=== PATIENT | male | born 1955 | race Caucasian/White ===

== ENCOUNTER 2016-10-28 01:33 | Emergency (ER) | payer MEDICARE, MEDICAID ==
--- NOTE | 2016-10-28 02:12 | ER Document Report ---
Addendum entered and electronically signed by NICOLA ZARCO NP 07:54: Doctor's Note Notes: 10/28/16 07:52 Patient received from Nuno MARTINEZ. Patient resting quietly at this time sitting up in the end of his bed states he would much rather be in a chair. O2 is stretched. Awaiting for a bed at [facility]. We'll order a diet for him to continue to monitor. He will have serial CBCs due to his lower GI bleed. Original Note: ED General - General Time seen by provider: 02:10 TRAVEL OUTSIDE OF THE [place] IN LAST 30 DAYS: No <NUNO SAUL - Last Filed: 10/28/16 07:19> <NICOLA ZARCO - Last Filed: 10/28/16 07:52> <PHIL MILES - Last Filed: 10/28/16 13:00> - General Chief Complaint: Shortness Of Breath Stated Complaint: DIFFICULTY BREATHING Notes: Patient is a 61-year-old male that comes by EMS for chief complaint of shortness of breath. Patient states that earlier he felt short of breath although this is now resolved, he denies current symptoms, he states that he still feels short of breath when he lies flat but this is his baseline. Patient has a conjugate medical history including ESRD on dialysis, CAD and CABG , pacemaker, DMII. He is due for dialysis today. Patient reports he just got out of rehabilitation where he was placed because of a diabetic foot wound which he could not walk from. (NUNO SAUL) - Related Data Allergies/Adverse Reactions: No Known Allergies Allergy (Verified 07/22/15 15:27) Past Medical History - General Information source: Patient - Social History Smoking Status: Former Smoker Chew tobacco use (# tins/day): No Frequency of alcohol use: None Drug Abuse: None Lives with: Alone Family History: CAD, DM Patient has suicidal ideation: No Patient has homicidal ideation: No - Past Medical History Cardiac Medical History: Reports: Hx Congestive Heart Failure, Hx Hypertension Endocrine Medical History: Reports: Hx Diabetes Mellitus Type 2 Renal/ Medical History: Denies: Hx Peritoneal Dialysis Musculoskeltal Medical History: Reports Hx Arthritis, Reports Hx Musculoskeletal Deformity, Reports Hx Musculoskeletal Trauma Psychiatric Medical History: Reports: Hx Depression Past Surgical History: Reports: Hx Appendectomy, Hx Orthopedic Surgery - right knee replacement, Hx Rectal Surgery - abscess years agoComment Only: Hx Abdominal Surgery - current hernia - Immunizations Immunizations up to date: Yes Hx Diphtheria, Pertussis, Tetanus Vaccination: Yes Hx Pneumococcal Vaccination: 05/23/13 <NUNO SAUL - Last Filed: 10/28/16 07:19> Review of Systems - Review of Systems Constitutional: No symptoms reported EENT: No symptoms reported Cardiovascular: See HPI Respiratory: See HPI Gastrointestinal: No symptoms reported Genitourinary: No symptoms reported Male Genitourinary: No symptoms reported Musculoskeletal: No symptoms reported Skin: No symptoms reported Hematologic/Lymphatic: No symptoms reported Neurological/Psychological: No symptoms reported <NUNO SAUL Last Filed: 10/28/16 07:19> Physical Exam - Vital signs Interpretation: Normal - General General appearance: Appears well, Alert In distress: None - HEENT Head: Normocephalic, Atraumatic Eyes: Normal Pupils: PERRL - Respiratory Respiratory status: No respiratory distress Chest status: Nontender Breath sounds: Decreased air movement - Bilateral. No: Productive cough, Rales , Rhonchi, Stridor, Wheezing Chest palpation: Normal - Cardiovascular Rhythm: Regular. No: Tachycardia Heart sounds: Normal auscultation, S1 appreciated, S2 appreciated - Abdominal Distension: No distension Bowel sounds: Normal Tenderness: Nontender. No: Tender - Rectal Stool: Heme positive, See lab result. No: Black Hemorrhoids: None - Back Back: Normal, Nontender - Extremities General upper extremity: Normal inspection, Nontender, Normal color, Normal ROM , Normal temperature General lower extremity: Other - Chronic venous stasis discoloration with skin breakdown over the feet bilaterally, there is a pressure ulcer with dressing over the left lateral foot - Neurological Neuro grossly intact: Yes Cognition: Normal Orientation: AAOx4 [place] Coma Scale Eye Opening: Spontaneous [place] Coma Scale Verbal: Oriented [place] Coma Scale Motor: Obeys Commands [place] Coma Scale Total: 15 Speech: Normal Motor strength normal: LUE, RUE, LLE, RLE Sensory: Normal - Psychological Associated symptoms: Normal affect, Normal mood - Skin Skin Temperature: Warm Skin Moisture: Dry Skin Color: Normal <NUNO SAUL Last Filed: 10/28/16 07:19> Course - Laboratory Result Diagrams: 10/28/16 02:25 10/28/16 02:25 <NUNO SAUL - Last Filed: 10/28/16 07:19> <NICOLA ZARCO - Last Filed: 10/28/16 07:52> - Laboratory Result Diagrams: 10/28/16 08:58 10/28/16 02:25 <PHIL MILES - Last Filed: 10/28/16 13:00> - Re-evaluation Re-evalutation: EKG showing paced ventricular rhythm, cardiac enzymes not elevated, chemistry generally unremarkable. CBC shows anemia with hemoglobin of 7.9, previous hemoglobin last March 20 plus. Abdomen is soft, patient is unsure of abnormal stools. Physical examination shows questionable exam for lower GI bleed, positive Hemoccult, no hemorrhoids, no significant bleeding noted, no black stools noted. Called ordering machine operator, we do not have gastroenterology coverage for 4 more days. Patient also is due for dialysis today. Fortunately potassium is not elevated. Discussed with Dr. Michele. Recommends transfer to tertiary care center for additional management. Pending transfusion. Called and spoke with [facility] Dr. Booth, patient will be accepted for transfer. She recommends patient not get transfusion based on his recent labs at [facility]. Patient is in agreement with this transfer plan. Patient introduced to Roger CROSSP at bedside. (NUNO SAUL) 10/28/16 13:00 Patient reevaluated and is stable at this time, awaiting transport (PHIL MILES) - Vital Signs Vital signs: Temp Pulse Resp BP Pulse Ox 97.5 F 79 22 H 111/96 H 100 10/28/16 01:58 10/28/16 01:58 10/28/16 01:58 10/28/16 12:01 10/28/16 12:01 - Laboratory Laboratory results interpreted by me: 10/28/16 10/28/16 10/28/16 02:25 02:25 02:25 RBC 2.94 L Hgb 7.9 L Hct 24.5 L MCH RDW 18.5 H Plt Count 139 L Lymphocytes % 12.6 L Sodium 145.3 H BUN 71 H Creatinine 6.98 H Est GFR ( Amer) 10 L Est GFR (Non-Af Amer) 8 L Direct Bilirubin 0.8 H CK-MB (CK-2) 5.03 H Crossmatch 10/28/16 10/28/16 05:40 08:58 RBC 2.93 L Hgb 7.8 L Hct 24.4 L MCH 26.7 L RDW 19.3 H Plt Count 125 L Lymphocytes % Sodium BUN Creatinine Est GFR ( Amer) Est GFR (Non-Af Amer) Direct Bilirubin CK-MB (CK-2) Crossmatch See Detail Discharge <NUNO SAUL - Last Filed: 10/28/16 07:19> <NICOLA ZARCO - Last Filed: 10/28/16 07:52> <PHIL MILES - Last Filed: 10/28/16 13:00> - Discharge Clinical Impression: Lower GI bleed, Shortness of breath Condition: Stable Disposition: [facility] [place]
[2016-10-28 02:42] LABS: ABSOLUTE BASOPHILS # (AUTO) 0.1 10^3/uL (0.0-0.2); ABSOLUTE EOSINOPHILS # (AUTO) 0.2 10^3/uL (0.0-0.6); ABSOLUTE LYMPHOCYTES (AUTO) 0.8 10^3/uL (0.5-4.7); ABSOLUTE MONOCYTES (AUTO) 0.6 10^3/uL (0.1-1.4); ABSOLUTE NEUT (AUTO) 4.8 10^3/uL (1.7-8.2); EOSINOPHILS % (AUTO) 3.8 % (0-6); HEMATOCRIT 24.5 % (37.9-51.0); HGB HCT DIFFERENCE -0.8; LYMPHOCYTES % (AUTO) 12.6 % (13-45); MEAN CORPUSCULAR HEMOGLOBIN 27.1 pg (27.0-33.4); MEAN CORPUSCULAR HGB CONC 32.4 g/dL (32.0-36.0); MEAN CORPUSCULAR VOLUME 84 fl (80-97); MONOCYTES % (AUTO) 9.4 % (3-13); RED BLOOD COUNT 2.94 10^6/uL (4.35-5.55); RED CELL DISTRIBUTION WIDTH 18.5 % (11.5-14.0); SEGMENTED NEUTROPHILS % (AUTO) 73.2 % (42-78); WHITE BLOOD COUNT 6.5 10^3/uL (4.0-10.5)
[2016-10-28 02:45] LABS: HEMOGLOBIN 7.9 g/dL (13.5-17.0)
[2016-10-28 02:57] LABS: ALANINE AMINOTRANSFERASE 27 U/L (21-72); ALBUMIN 3.6 g/dL (3.5-5.0); ALKALINE PHOSPHATASE 124 U/L (38-126); ASPARTATE AMINO TRANSFERASE 27 U/L (17-59); BILIRUBIN,DIRECT 0.8 mg/dL (0.0-0.4); BILIRUBIN,TOTAL 0.8 mg/dL (0.2-1.3); BLOOD UREA NITROGEN 71 mg/dL (7-20); CALCIUM 8.6 mg/dL (8.4-10.2); CARBON DIOXIDE 23 mmol/L (22-30); CHLORIDE 103 mmol/L (98-107); CREATINE KINASE 77 U/L (55-170); CREATININE RESULT 6.98 mg/dL (0.52-1.25); GLUCOSE 93 mg/dL (75-110); POTASSIUM 4.4 mmol/L (3.6-5.0); TOTAL PROTEIN 7.6 g/dL (6.3-8.2)
[2016-10-28 03:05] LABS: ANION GAP 19 (5-19); SODIUM 145.3 mmol/L (137-145)
[2016-10-28 03:09] LABS: CREATINE KINASE MB 5.03 ng/mL (<4.55); TROPONIN I 0.013 ng/mL
[2016-10-28] MEDS ORDERED: OXYCODONE-ACETAMINOPHEN 5-325 MG TABLET PO ONE (04:09)
[2016-10-28] MEDS ORDERED: NORMAL SALINE 250 ML IV PRN ×2 (05:17)
--- NOTE | 2016-10-28 07:40 | EKG REPORT ---
SEVERITY:- ABNORMAL ECG - VENTRICULAR-PACED RHYTHM : Confirmed by: Marcia Cardenas MD 28-Oct-2016 07:39:30
[2016-10-28 09:21] LABS: HEMATOCRIT 24.4 % (37.9-51.0); MEAN CORPUSCULAR HEMOGLOBIN 26.7 pg (27.0-33.4); MEAN CORPUSCULAR VOLUME 83 fl (80-97); RED BLOOD COUNT 2.93 10^6/uL (4.35-5.55); RED CELL DISTRIBUTION WIDTH 19.3 % (11.5-14.0); WHITE BLOOD COUNT 6.6 10^3/uL (4.0-10.5)
[2016-10-28 09:39] LABS: HEMOGLOBIN 7.8 g/dL (13.5-17.0)
[2016-10-28 12:48] VITALS: BP 111/96
[2016-10-28 13:23] LABS: ALANINE AMINOTRANSFERASE 20 U/L (21-72); ALBUMIN 3.4 g/dL (3.5-5.0); ALKALINE PHOSPHATASE 112 U/L (38-126); ASPARTATE AMINO TRANSFERASE 26 U/L (17-59); BILIRUBIN,DIRECT 0.8 mg/dL (0.0-0.4); BILIRUBIN,TOTAL 0.8 mg/dL (0.2-1.3); BLOOD UREA NITROGEN 74 mg/dL (7-20); CALCIUM 8.4 mg/dL (8.4-10.2); CHLORIDE 102 mmol/L (98-107); CREATININE RESULT 7.28 mg/dL (0.52-1.25); GLUCOSE 197 mg/dL (75-110); TOTAL PROTEIN 7.1 g/dL (6.3-8.2)
[2016-10-28 13:25] LABS: ABSOLUTE BASOPHILS # (AUTO) 0.1 10^3/uL (0.0-0.2); ABSOLUTE EOSINOPHILS # (AUTO) 0.1 10^3/uL (0.0-0.6); ABSOLUTE LYMPHOCYTES (AUTO) 0.8 10^3/uL (0.5-4.7); ABSOLUTE MONOCYTES (AUTO) 0.5 10^3/uL (0.1-1.4); ABSOLUTE NEUT (AUTO) 4.6 10^3/uL (1.7-8.2); BASOPHILS % (AUTO) 1.3 % (0-2); EOSINOPHILS % (AUTO) 2.4 % (0-6); HGB HCT DIFFERENCE -1.5; LYMPHOCYTES % (AUTO) 12.7 % (13-45); MEAN CORPUSCULAR HEMOGLOBIN 26.5 pg (27.0-33.4); MEAN CORPUSCULAR HGB CONC 31.5 g/dL (32.0-36.0); MEAN CORPUSCULAR VOLUME 84 fl (80-97); MONOCYTES % (AUTO) 7.6 % (3-13); RED BLOOD COUNT 2.84 10^6/uL (4.35-5.55)
[2016-10-28 13:32] LABS: ANION GAP 19 (5-19); CARBON DIOXIDE 22 mmol/L (22-30); POTASSIUM 4.7 mmol/L (3.6-5.0); SODIUM 142.9 mmol/L (137-145)
[2016-10-28 13:39] LABS: HEMOGLOBIN 7.5 g/dL (13.5-17.0)
== END 2016-10-28 13:29 | disposition short-term general hospital (02) ==
LOC: ER 01:33
DX: K92.2 Gastrointestinal hemorrhage, unspecified (principal); R06.02 Shortness of breath; I12.0 Hypertensive chronic kidney disease with stage 5 chronic kidney disease or end stage renal disease; E11.22 Type 2 diabetes mellitus with diabetic chronic kidney disease; N18.6 End stage renal disease; Z99.2 Dependence on renal dialysis; I25.10 Atherosclerotic heart disease of native coronary artery without angina pectoris; L89.899 Pressure ulcer of other site, unspecified stage; Z95.1 Presence of aortocoronary bypass graft; Z95.0 Presence of cardiac pacemaker; Z87.891 Personal history of nicotine dependence
CPT/HCPCS: 93005; 99285; 86900; 86901; 36415; 82553; 86850; 82962; 82550; 85025; 85027; 82272; 80053; 84484; 86920; 71010; 93010; A9270

== ENCOUNTER 2016-12-11 03:28 | Emergency (ER) | payer MEDICARE, MEDICAID ==
[2016-12-11 04:30] LABS: ABSOLUTE BASOPHILS # (AUTO) 0.1 10^3/uL (0.0-0.2); ABSOLUTE EOSINOPHILS # (AUTO) 0.1 10^3/uL (0.0-0.6); ABSOLUTE LYMPHOCYTES (AUTO) 0.8 10^3/uL (0.5-4.7); ABSOLUTE MONOCYTES (AUTO) 0.5 10^3/uL (0.1-1.4); ABSOLUTE NEUT (AUTO) 4.2 10^3/uL (1.7-8.2); EOSINOPHILS % (AUTO) 1.6 % (0-6); HEMATOCRIT 26.5 % (37.9-51.0); HEMOGLOBIN 8.4 g/dL (13.5-17.0); HGB HCT DIFFERENCE -1.3; LYMPHOCYTES % (AUTO) 13.5 % (13-45); MEAN CORPUSCULAR HGB CONC 31.6 g/dL (32.0-36.0); MEAN CORPUSCULAR VOLUME 85 fl (80-97); MONOCYTES % (AUTO) 9.1 % (3-13); RED BLOOD COUNT 3.11 10^6/uL (4.35-5.55); RED CELL DISTRIBUTION WIDTH 18.6 % (11.5-14.0); SEGMENTED NEUTROPHILS % (AUTO) 74.8 % (42-78); WHITE BLOOD COUNT 5.7 10^3/uL (4.0-10.5)
--- NOTE | 2016-12-11 04:36 | ER Document Report ---
ED General - General Mode of Arrival: Medic Information source: Patient, [facility] Records TRAVEL OUTSIDE OF THE [place] IN LAST 30 DAYS: No - HPI Onset: Other - Refer to HPI notes Similar symptoms previously: Yes Recently seen / treated by doctor: Yes <IKE CEE - Last Filed: 12/11/16 04:56> <GER BROWN - Last Filed: 12/11/16 06:09> - General Chief Complaint: Wound Infection Stated Complaint: DIFFICULTY BREATHING Notes: Patient is a 61-year-old male presenting to the emergency department for shortness of breath. Patient's shortness of breath was onset atapproximately 3: 00 this morning. States that his shortness of breath worsened in the emergency department. Patient also has a cough, lower extremity edema, and foul smelling wound to his lower extremity. Patient has peritoneal dialysis on Tuesday, Tuesday, and Tuesday. Patient has a history of CHF, hypertension, type II diabetes mellitus, and a hernia. Patient is a poor historian and states his first day of dialysis was today which is not consistent with his lab work or previous visit history. Patient was seen on 03/23/16 for a Non-STEMI. Patient was also seen on 10/28/16 and was transferred to [facility] for rectal bleeding; patient again is a poor historian and states he thought he was transferred for his difficulty breathing. Patient recently was discharged from rehab facility for his wound and states he has wound care come to his house for dressing changes. Patient has no known drug allergies. Patient's primary care physician is Dr. aYmil Willingham. Patient's urologist is Dr. Walter. (IKE CEE) - Related Data Allergies/Adverse Reactions: No Known Allergies Allergy (Verified 07/22/15 15:27) Past Medical History - General Information source: Patient, [facility] Records - Social History Smoking Status: Current Every Day Smoker Family History: CAD, DM Patient has suicidal ideation: No Patient has homicidal ideation: No - Past Medical History Cardiac Medical History: Reports: Hx Congestive Heart Failure, Hx Hypertension Endocrine Medical History: Reports: Hx Diabetes Mellitus Type 2 Renal/ Medical History: Reports: Hx Peritoneal Dialysis - MWF GI Medical History: Reports: Other - hernia Musculoskeltal Medical History: Reports Hx Arthritis, Reports Hx Musculoskeletal Deformity, Reports Hx Musculoskeletal Trauma Psychiatric Medical History: Reports: Hx Depression Past Surgical History: Reports: Hx Appendectomy, Hx Orthopedic Surgery - right knee replacement, Hx Rectal Surgery - abscess years ago - Immunizations Immunizations up to date: Yes Hx Diphtheria, Pertussis, Tetanus Vaccination: Yes Hx Pneumococcal Vaccination: 05/23/13 <IKE CEE - Last Filed: 12/11/16 04:56> Review of Systems - Review of Systems Constitutional: No symptoms reported EENT: No symptoms reported Cardiovascular: No symptoms reported Respiratory: See HPI, Cough, Short of breath, Wheezing Gastrointestinal: No symptoms reported Genitourinary: No symptoms reported Male Genitourinary: No symptoms reported Musculoskeletal: No symptoms reported Skin: No symptoms reported Hematologic/Lymphatic: No symptoms reported Neurological/Psychological: No symptoms reported -: Yes All other systems reviewed and negative <IKE CEE - Last Filed: 12/11/16 04:56> Physical Exam - General General appearance: Alert In distress: Mild - HEENT Head: Normocephalic, Atraumatic Eyes: Normal Pupils: PERRL Nasal: Other - Nasal cannula in place Mucous membranes: Moist - Respiratory Respiratory status: No respiratory distress Chest status: Nontender, Other - right subclavian PermaCath Breath sounds: Other - Wheezing and rhonchi throughout Chest palpation: Normal - Cardiovascular Rhythm: Regular Heart sounds: Normal auscultation Murmur: No - Abdominal Inspection: Morbidly Obese Distension: No distension Bowel sounds: Normal Tenderness: Nontender Organomegaly: No organomegaly - Back Back: Normal, Nontender - Extremities General upper extremity: Normal ROM, Normal strength, Other - Shunt in the left forearm General lower extremity: Normal ROM, Normal strength Calf: Other - foul odor coming from the wound on the left leg; lower extremites are erythematous with pitting edema bilaterally, there are blisters of fluid collection to the lower extremities - Neurological Neuro grossly intact: Yes Cognition: Normal Orientation: AAOx4 [place] Coma Scale Eye Opening: Spontaneous [place] Coma Scale Verbal: Oriented Jairon Coma Scale Motor: Obeys Commands [place] Coma Scale Total: 15 Speech: Normal - Psychological Associated symptoms: Normal affect, Normal mood - Skin Skin Temperature: Warm Skin Moisture: Dry <IKE CEE - Last Filed: 12/11/16 04:56> - Extremities General lower extremity: Other - The right heel area has granulation tissue, he showed me a picture of what it used to look like and it is considerably better at this time. The left ashby area has blisters developing that remain intact. <GER BROWN - Last Filed: 12/11/16 06:09> Course - Laboratory Result Diagrams: 12/11/16 04:10 12/11/16 04:10 <IKE CEE - Last Filed: 12/11/16 04:56> - Laboratory Result Diagrams: 12/11/16 04:10 12/11/16 04:10 <GER BROWN - Last Filed: 12/11/16 06:09> - Laboratory Laboratory results interpreted by me: 12/11/16 12/11/16 12/11/16 04:10 04:10 04:36 RBC 3.11 L Hgb 8.4 L Hct 26.5 L MCHC 31.6 L RDW 18.6 H Plt Count 117 L BUN 37 H Creatinine 5.00 H Est GFR ( Amer) 14 L Est GFR (Non-Af Amer) 12 L Glucose 120 H Direct Bilirubin 0.7 H Alkaline Phosphatase 155 H CK-MB (CK-2) 6.22 H NT-Pro-B Natriuret Pep 43909 H Discharge <IKE CEE - Last Filed: 12/11/16 04:56> <GER BROWN - Last Filed: 12/11/16 06:09> - Discharge Clinical Impression: COPD exacerbation, Venous stasis ulcers of both lower extremities Chronic renal failure Qualifiers: Chronic kidney disease stage: stage 5 Qualified Code(s): N18.5 - Chronic kidney disease, stage 5 Diabetes Qualifiers: Diabetes mellitus type: type 2 Diabetes mellitus complication status: with kidney complications Diabetes mellitus complication detail: with chronic kidney disease Diabetes mellitus intermodal customer service insulin use: unspecified jail insulin use status Chronic kidney disease stage: on chronic dialysis Qualified Code(s): E11.22 - Type 2 diabetes mellitus with diabetic chronic kidney disease; N18.6 - End stage renal disease; Z99.2 - Dependence on renal dialysis Anemia Qualifiers: Anemia type: unspecified type Qualified Code(s): D64.9 - Anemia, unspecified Condition: Stable Disposition: HOME, SELF-CARE Additional Instructions: Elevate of your feet all the time. Continue your regular medications. Follow-up with your wound care doctor this week. Follow-up with your primary care provider in the next few days for recheck. RETURN TO THE EMERGENCY ROOM IF ANY NEW OR WORSENING SYMPTOMS. Scribe Attestation: 12/11/16 06:09 I personally performed the services described in the documentation, reviewed and edited the documentation which was dictated to the scribe in my presence, and it accurately records my words and actions. (GER BROWN) Scribe Documentation - Scribe Written by Haley:: Haley Abernathy 12/11/16 4:52 acting as scribe for :: Jose J <IKE CEE - Last Filed: 12/11/16 04:56>
[2016-12-11] MEDS ORDERED: IPRATROPIUM/ALBUTEROL 0.5-2.5 MG/3 ML AMPUL NEB ONE (04:37)
[2016-12-11 04:42] LABS: ALANINE AMINOTRANSFERASE 25 U/L (21-72); ALBUMIN 3.5 g/dL (3.5-5.0); ALKALINE PHOSPHATASE 155 U/L (38-126); ANION GAP 13 (5-19); ASPARTATE AMINO TRANSFERASE 28 U/L (17-59); BILIRUBIN,DIRECT 0.7 mg/dL (0.0-0.4); BILIRUBIN,TOTAL 0.9 mg/dL (0.2-1.3); BLOOD UREA NITROGEN 37 mg/dL (7-20); CALCIUM 8.6 mg/dL (8.4-10.2); CARBON DIOXIDE 27 mmol/L (22-30); CHLORIDE 100 mmol/L (98-107); GLUCOSE 120 mg/dL (75-110); POTASSIUM 3.9 mmol/L (3.6-5.0); SODIUM 139.9 mmol/L (137-145); TOTAL PROTEIN 7.6 g/dL (6.3-8.2)
[2016-12-11 05:06] LABS: CREATINE KINASE MB 6.22 ng/mL (<4.55); TROPONIN I 0.015 ng/mL
--- NOTE | 2016-12-11 05:10 | RADIOLOGY REPORT (SQ) ---
EXAM DESCRIPTION: CHEST SINGLE VIEW COMPLETED DATE/TIME: 12/11/2016 4:47 am REASON FOR STUDY: DB COMPARISON: Chest x-ray 10/28/2016. EXAM PARAMETERS: NUMBER OF VIEWS: One view. TECHNIQUE: Single frontal radiographic view of the chest acquired. RADIATION DOSE: NA LIMITATIONS: None. FINDINGS: LUNGS AND PLEURA: Mild left basilar atelectasis. No pleural effusion or pneumothorax. MEDIASTINUM AND HILAR STRUCTURES: No masses. Contour normal. HEART AND VASCULAR STRUCTURES: The heart remains enlarged. No overt vascular congestion. BONES: No acute findings. HARDWARE: There is a right-sided central line with the tip overlying the region of the atrial caval j unction. There is a left-sided pacemaker. A left atrial appendage clip is noted. IMPRESSION: Stable cardiomegaly. Mild left basilar atelectasis. TECHNICAL DOCUMENTATION: JOB ID: [id number]
[2016-12-11 08:03] VITALS: BP 134/77
== END 2016-12-11 09:30 | disposition home or self-care (01) ==
LOC: ER 03:28
DX: J44.1 Chronic obstructive pulmonary disease with (acute) exacerbation (principal); I83.009 Varicose veins of unspecified lower extremity with ulcer of unspecified site; L97.919 Non-pressure chronic ulcer of unspecified part of right lower leg with unspecified severity; L97.929 Non-pressure chronic ulcer of unspecified part of left lower leg with unspecified severity; I12.0 Hypertensive chronic kidney disease with stage 5 chronic kidney disease or end stage renal disease; N18.5 Chronic kidney disease, stage 5; R06.02 Shortness of breath; R05 Cough; R60.0 Localized edema; E11.9 Type 2 diabetes mellitus without complications; I50.9 Heart failure, unspecified; I10 Essential (primary) hypertension; F17.200 Nicotine dependence, unspecified, uncomplicated
CPT/HCPCS: 94640; 99285; 36415; 87040; 87070 ×2; 87205; 82553; 82550; 85025; 87075; 87077; 80053; 84484; 87186; 83605; 83880; 71010; A9270; J7620

== ENCOUNTER 2017-01-08 22:48 | Emergency (ER) | payer MEDICAID, MEDICARE ==
[2017-01-08 23:45] LABS: PROTHROMBIN TIME 29.9 SEC (11.4-15.4)
[2017-01-08 23:46] LABS: ANION GAP 13 (5-19); BLOOD UREA NITROGEN 44 mg/dL (7-20); CALCIUM 8.5 mg/dL (8.4-10.2); CARBON DIOXIDE 25 mmol/L (22-30); CHLORIDE 96 mmol/L (98-107); CREATININE RESULT 5.08 mg/dL (0.52-1.25); GLUCOSE 98 mg/dL (75-110); POTASSIUM 4.8 mmol/L (3.6-5.0); SODIUM 134.1 mmol/L (137-145)
[2017-01-08 23:52] LABS: ABSOLUTE EOSINOPHILS # (AUTO) 0.2 10^3/uL (0.0-0.6); ABSOLUTE LYMPHOCYTES (AUTO) 0.8 10^3/uL (0.5-4.7); ABSOLUTE MONOCYTES (AUTO) 0.5 10^3/uL (0.1-1.4); ABSOLUTE NEUT (AUTO) 3.4 10^3/uL (1.7-8.2); EOSINOPHILS % (AUTO) 3.3 % (0-6); HEMATOCRIT 28.3 % (37.9-51.0); HEMOGLOBIN 8.8 g/dL (13.5-17.0); HGB HCT DIFFERENCE -1.9; LYMPHOCYTES % (AUTO) 16.3 % (13-45); MEAN CORPUSCULAR HEMOGLOBIN 28.9 pg (27.0-33.4); MEAN CORPUSCULAR HGB CONC 31.3 g/dL (32.0-36.0); RED BLOOD COUNT 3.05 10^6/uL (4.35-5.55); RED CELL DISTRIBUTION WIDTH 21.7 % (11.5-14.0); SEGMENTED NEUTROPHILS % (AUTO) 68.4 % (42-78)
[2017-01-09 00:07] LABS: MEAN CORPUSCULAR VOLUME 93 fl (80-97)
[2017-01-09] MEDS ORDERED: OXYCODONE HCL IR 5 MG TABLET PO ONE (00:56)
[2017-01-09] MEDS ORDERED: LIDOCAINE 2% URO-JET 5 ML KIT MM ONE (00:56)
--- NOTE | 2017-01-09 00:56 | ER Document Report ---
ED GI/ - General Chief Complaint: Urinary Problem Stated Complaint: BLOOD IN URINE Time Seen by Provider: 01/09/17 00:32 Notes: Patient is a 61-year-old male who comes emergency department for chief complaint of hematuria. He has noted this for the past 2 days. He states that he normally does not make a lot of urine, he is on dialysis (Tuesday), states that he has urinated twice over the past 2 days and both times he saw there was blood in the urine. He denies dizziness, lightheadedness, blood in the stool, chest pain, shortness of breath. Patient is on Coumadin, states he has been compliant with this dose, states he is compliant with all medications. Patient has a complicated past medical history including CABG, diabetes II, pacemaker, peripheral neuropathy, ESRD. He is currently complaining of some neuropathy pain in his hands. TRAVEL OUTSIDE OF THE [place] IN LAST 30 DAYS: No - Related Data Allergies/Adverse Reactions: No Known Allergies Allergy (Verified 07/22/15 15:27) Past Medical History - General Information source: Patient - Social History Smoking Status: Former Smoker Frequency of alcohol use: None Drug Abuse: None Lives with: Alone Family History: CAD, DM Patient has suicidal ideation: No Patient has homicidal ideation: No - Past Medical History Cardiac Medical History: Reports: Hx Congestive Heart Failure, Hx Hypertension Endocrine Medical History: Reports: Hx Diabetes Mellitus Type 2 Renal/ Medical History: Denies: Hx Peritoneal Dialysis - HD Musculoskeltal Medical History: Reports Hx Arthritis, Reports Hx Musculoskeletal Deformity, Reports Hx Musculoskeletal Trauma Psychiatric Medical History: Reports: Hx Depression Past Surgical History: Reports: Hx Appendectomy, Hx Orthopedic Surgery - right knee replacement, Hx Rectal Surgery - abscess years agoComment Only: Hx Abdominal Surgery - current hernia - Immunizations Immunizations up to date: Yes Hx Diphtheria, Pertussis, Tetanus Vaccination: Yes Hx Pneumococcal Vaccination: 05/23/13 Review of Systems - Review of Systems Constitutional: No symptoms reported EENT: No symptoms reported Cardiovascular: No symptoms reported Respiratory: No symptoms reported Gastrointestinal: No symptoms reported Genitourinary: See HPI Male Genitourinary: No symptoms reported Musculoskeletal: No symptoms reported Skin: No symptoms reported Hematologic/Lymphatic: No symptoms reported Neurological/Psychological: No symptoms reported Physical Exam - Vital signs Vitals: Temp Pulse Resp BP Pulse Ox 97.9 F 81 17 134/73 H 96 01/08/17 22:54 01/08/17 22:54 01/08/17 22:54 01/08/17 22:54 01/08/17 22:54 Interpretation: Normal - General General appearance: Appears well, Alert - HEENT Head: Normocephalic, Atraumatic Eyes: Normal Pupils: PERRL - Respiratory Respiratory status: No respiratory distress Chest status: Nontender Breath sounds: Normal. No: Decreased air movement, Wheezing Chest palpation: Normal - Cardiovascular Rhythm: Regular Heart sounds: Normal auscultation Murmur: No - Abdominal Inspection: Normal Distension: No distension Bowel sounds: Normal Tenderness: Nontender Organomegaly: No organomegaly - Back Back: Normal, Nontender - Extremities General upper extremity: Nontender, Normal ROM General lower extremity: Nontender, Normal ROM, Other - Bilateral Unna boots and venous staining - Neurological Neuro grossly intact: Yes Cognition: Normal Orientation: AAOx4 [place] Coma Scale Eye Opening: Spontaneous Jairon Coma Scale Verbal: Oriented [place] Coma Scale Motor: Obeys Commands [place] Coma Scale Total: 15 Speech: Normal Motor strength normal: LUE, RUE, LLE, RLE Sensory: Normal - Psychological Associated symptoms: Normal affect, Normal mood - Skin Skin Temperature: Warm Skin Moisture: Dry Skin Color: Normal Course - Re-evaluation Re-evalutation: Patient is smiling, talkative, well-appearing, ambulates around the room without any difficulty. No tachycardia, hypotension, or fever. Abdomen is soft and benign. No flank pain. Clear lungs on exam. Patient with chronic lower extremity slowly healing wound secondary to his diabetes. Coumadin therapeutic. CBC shows anemia, however this is improved compared to prior. No leukocytosis or shift. Chemistry generally unremarkable, urine shows large amount of blood and white blood cells. Culture placed. CAT scan performed to rule out kidney stone or other abnormality, shows strangely right-sided pneumonia but no obstructive pathology or other concerning abnormalities. Patient states that he did have a cough for the past week but states it almost completely resolved, denies shortness of breath, denies chest pain. Patient actually came out of his room and asked if he can leave now. Discussed with patient all details patient states that he will follow-up with first primary care and then potentially urology, states that he will take antibiotic but he is ready to leave. No indications for hospitalization, no suggestion of sepsis, patient will be treated with Levaquin and given return precautions. Patient states satisfaction and agreement. - Vital Signs Vital signs: Temp Pulse Resp BP Pulse Ox 98.0 F 81 17 121/76 99 01/09/17 03:27 01/09/17 03:27 01/09/17 03:27 01/09/17 03:27 01/09/17 03:27 - Laboratory Result Diagrams: 01/08/17 23:00 01/08/17 23:00 Laboratory results interpreted by me: 01/08/17 01/08/17 01/08/17 23:00 23:00 23:00 RBC 3.05 L Hgb 8.8 L Hct 28.3 L MCHC 31.3 L RDW 21.7 H Plt Count 120 L PT 29.9 H Sodium 134.1 L Chloride 96 L BUN 44 H Creatinine 5.08 H Est GFR ( Amer) 14 L Est GFR (Non-Af Amer) 12 L Urine Protein Urine Blood Ur Leukocyte Esterase Urine Ascorbic Acid 01/09/17 01:40 RBC Hgb Hct MCHC RDW Plt Count PT Sodium Chloride BUN Creatinine Est GFR ( Amer) Est GFR (Non-Af Amer) Urine Protein 100 H Urine Blood LARGE H Ur Leukocyte Esterase TRACE H Urine Ascorbic Acid 20 H Discharge - Discharge Clinical Impression: Hematuria Condition: Stable Disposition: HOME, SELF-CARE Additional Instructions: Cat scan shows no urinary tract abnormality. Urinalysis is consistent with infection, we have a urine culture growing in our lab, take the antibiotic as directed. CAT scan also suggests a pneumonia, take the same antibiotic for this (first dose done, next dose Tuesday), I recommend following up with primary care within the next several days. Return to emergency department immediately if you worsen in any way including shortness of breath, fever, vomiting, abdominal or back pain, or any other concerning symptoms. Prescriptions: Levofloxacin [Levaquin 500 mg Tablet] 500 mg PO DAILY #6 tablet Referrals: JOSE CEDEÑO MD [Primary Care Provider] - Follow up as needed
[2017-01-09 02:29] LABS: APPEARANCE,URINE CLOUDY; BILIRUBIN,URINE NEGATIVE (NEGATIVE); GLUCOSE, URINE NEGATIVE (NEGATIVE); KETONES,URINE NEGATIVE (NEGATIVE); LEUKOCYTE ESTERASE,URINE TRACE (NEGATIVE); NITRITE,URINE NEGATIVE (NEGATIVE); PROTEIN,URINE 100 mg/dL (NEGATIVE); URINE SPECIFIC GRAVITY 1.012; UROBILINOGEN,URINE NEGATIVE mg/dL (<2.0)
--- NOTE | 2017-01-09 02:49 | RADIOLOGY REPORT (SQ) ---
EXAM DESCRIPTION: CT LTD RENAL STONE PROTOCOL ON COMPLETED DATE/TIME: 01/09/2017 2:18 am REASON FOR STUDY: hematuria COMPARISON: CR, chest, 12/11/2016. TECHNIQUE: CT scan of the abdomen and pelvis performed without intravenous or oral contrast. Images reviewed with lung, soft tissue, and bone windows. Reconstructed coronal and sagittal MPR images revi ewed. All images stored on PACS. All CT scanners at this facility use dose modulation, iterative reconstruction, and/or weight based d osing when appropriate to reduce radiation dose to as low as reasonably achievable (ALARA). [facility]: Dose Right [facility]: CareDose [facility]: Dose Right [facility]: Teradose 4D [facility]: Smart SaltStack RADIATION DOSE: Up-to-date CT equipment and radiation dose reduction techniques were employed. CTDIv ol: 19.0 mGy. DLP: 1048 mGy-cm.mGy. LIMITATIONS: None. FINDINGS: LOWER CHEST: Small to moderate consolidative the left lower lobe. Small to moderate left pleural effusion. Mild bibasilar atelectasis or scar. Minimal right pleural effusion. NON-CONTRASTED LIVER, SPLEEN, ADRENALS: Evaluation limited by lack of IV contrast. No identified sign ificant masses. PANCREAS: No masses. No peripancreatic inflammatory changes. GALLBLADDER: The the RIGHT KIDNEY AND URETER: No suspicious masses. Assessment limited by lack of IV contrast. No signif icant calcifications. No hydronephrosis or hydroureter. LEFT KIDNEY AND URETER: No suspicious masses. Assessment limited by lack of IV contrast. No signifi cant calcifications. No hydronephrosis or hydroureter. AORTA AND RETROPERITONEUM: No aneurysm. No retroperitoneal masses or adenopathy. Atherosclerosis. BOWEL AND PERITONEAL CAVITY: Mild nonspecific lymphadenopathy of the upper abdomen includes a 1.6 cm lymph node anterior to the hepatic arteries. No free fluid. APPENDIX: Normal. PELVIS, BLADDER, AND ABDOMINAL WALL:No abnormal masses. No free fluid. Bladder normal. 4 cm ventral herniation of fat only along the midline of the upper abdomen. BONES: No significant findings. OTHER: Cardiac stimulation leads pre IMPRESSION: 1. Moderate left lower lobar pneumonia and effusion. 2. Cholelithiasis. TECHNICAL DOCUMENTATION: JOB ID: [id number] Quality ID # [id number]: Final reports with documentation of one or more dose reduction techniques (e.g., Au tomated exposure control, adjustment of the mA and/or kV according to patient size, use of iterative reconstruction technique) 2010 [employer]- All Rights Reserved
[2017-01-09] MEDS ORDERED: LEVOFLOXACIN 500 MG TABLET PO ONE (03:20)
[2017-01-09 03:41] VITALS: BP 121/76
== END 2017-01-09 03:41 | disposition home or self-care (01) ==
LOC: ER 22:48
DX: R31.9 Hematuria, unspecified (principal); E11.22 Type 2 diabetes mellitus with diabetic chronic kidney disease; I13.2 Hypertensive heart and chronic kidney disease with heart failure and with stage 5 chronic kidney disease, or end stage renal disease; N18.6 End stage renal disease; I50.9 Heart failure, unspecified; Z99.2 Dependence on renal dialysis; Z95.1 Presence of aortocoronary bypass graft; Z79.02 Long term (current) use of antithrombotics/antiplatelets; Z96.651 Presence of right artificial knee joint
CPT/HCPCS: 99284; 36415; 87086; 85025; 85610; 82272; 80048; 81001; 76380; A9270 ×2

== ENCOUNTER → 2017-01-25 | Outpatient (CLI) | payer MEDICAID, MEDICARE ==
--- NOTE | 2017-01-25 16:48 | XCELERA REPORT ---
[address] [address] Lower Extremity Arterial Evaluation Name: HELIO HANKINS Age: 61 yrs Gender: Male : 1955 Patient Status: Outpatient Patient Location: Study Date: 01/25/2017 02:17 PM Procedure: A color flow and duplex scan of the lower extremity arteries was performed bilaterally with velocity and waveform anaylsis. Ankle brachial indicies performed. Reason For Study: ULCER Ordering Physician: DONTE NAIDU Performed By: Keren Huston Measurements and Calculations Right Left Prox PFA PSV 59.6 93.7 cm/sec Prox SFA PSV 87.8 65.2 cm/sec Mid SFA PSV 99.6 163.9 cm/sec Dist SFA PSV 152.8 88.7 cm/sec Prox Pop A PSV 81.4 75.0 cm/sec Dist MILENA PSV 49.9 31.5 cm/sec Dist TWINE REELING MACHINE OPERATOR PSV 73.0 10.0 cm/sec Luis Pedis PSV 10.9 54.1 cm/sec Right Side Arterial Evaluation Normal velocity and triphasic waveforms in the Common Femoral artery. Biphasic with some spectral broadening from Femoral to the Popliteal artery. Monophasic in the infrageniculate vessels. 0-19% stenosis at the Femoral artery. With sequential changes. Ankle Brachial index was not done, patient unable to cooperate.. Left Side Arterial Evaluation Normal velocity and triphasic waveforms in the Common Femoral artery. Biphasic with some spectral broadening from Femoral to the Popliteal artery. Monophasic in the Posterior Tibial artery. Biphasic in the Dorsalis Pedis.. 0-19% stenosis at the Femoral artery. With sequential changes. Ankle Brachial index was not done, patient unable to cooperate.. Interpretation Summary Moderate hemodynamically significant lesions in the bilateral lower extremities, on duplex imaging, at rest. : DONTE NAIDU > Olayinka Phillips
--- NOTE | 2017-01-25 17:01 | RADIOLOGY REPORT (SQ) ---
EXAM DESCRIPTION: FOOT RIGHT COMPLETE COMPLETED DATE/TIME: 01/25/2017 4:12 pm REASON FOR STUDY: NON PRESSURE R ANKEL FAT LAYER EXPOSED L97.312 NON-PRS CHRONIC ULCER OF RIGHT ANK LE W FAT LAYER EXP E11.621 TYPE 2 DIABETES MELLITUS WITH FOOT ULCER COMPARISON: None. NUMBER OF VIEWS: Three views. TECHNIQUE: AP, lateral and oblique radiographic images acquired of the right foot. LIMITATIONS: None. FINDINGS: MINERALIZATION: Osteopenic BONES: No acute fracture or dislocation. Small plantar calcaneal spur. JOINTS: No effusions. SOFT TISSUES: There is soft tissue swelling and skin irregularity over the Achilles region. Arterial vascular calcifications. OTHER: No other significant finding. IMPRESSION: No aggressive bony demineralization worrisome for osteomyelitis. Dorsal soft tissue ulcer over the Achilles region TECHNICAL DOCUMENTATION: JOB ID: [id number] [employer]- All Rights Reserved
== END ==
LOC: SP 14:12
PROVIDERS: ATTEND Nurse Practitioner Family
DX: E11.621 Type 2 diabetes mellitus with foot ulcer (principal); L97.312 Non-pressure chronic ulcer of right ankle with fat layer exposed
CPT/HCPCS: 93925

== ENCOUNTER 2017-02-01 04:55 | Emergency (ER) | payer MEDICARE ==
[2017-02-01] MEDS ORDERED: CLINDAMYCIN PHOSPHATE INJ 300 MG/2 ML SDV IV ONE (05:16)
[2017-02-01] MEDS ORDERED: OXYCODONE-ACETAMINOPHEN 5-325 MG TABLET PO ONE (05:16)
--- NOTE | 2017-02-01 05:30 | ER Document Report ---
ED General - General Chief Complaint: Wound Infection Stated Complaint: FINGER PAIN Time Seen by Provider: 02/01/17 05:12 Mode of Arrival: Ambulatory Information source: Patient Notes: 61-year-old diabetic male presents with complaints of left hand second digit infection. Patient notes he burned his finger about a week ago has been using Silvadene cream but notes the area is getting worse and red. Patient denies any fevers or chills TRAVEL OUTSIDE OF THE [place] IN LAST 30 DAYS: No - HPI Onset: Last week Onset/Duration: Persistent, Worse Quality of pain: Achy Severity: Mild Pain Level: 1 Associated symptoms: Other Exacerbated by: Movement Relieved by: Denies Similar symptoms previously: No Recently seen / treated by doctor: No - Related Data Allergies/Adverse Reactions: heparin Allergy (Verified 02/01/17 05:06) Past Medical History - Social History Smoking Status: Never Smoker Cigarette use (# per day): No Chew tobacco use (# tins/day): No Smoking Education Provided: No Family History: CAD, DM Patient has suicidal ideation: No Patient has homicidal ideation: No - Past Medical History Cardiac Medical History: Reports: Hx Congestive Heart Failure, Hx Hypertension Endocrine Medical History: Reports: Hx Diabetes Mellitus Type 2 Renal/ Medical History: Denies: Hx Peritoneal Dialysis Musculoskeltal Medical History: Reports Hx Arthritis, Reports Hx Musculoskeletal Deformity, Reports Hx Musculoskeletal Trauma Psychiatric Medical History: Reports: Hx Depression Past Surgical History: Reports: Hx Appendectomy, Hx Orthopedic Surgery - right knee replacement, Hx Rectal Surgery - abscess years agoComment Only: Hx Abdominal Surgery - current hernia - Immunizations Immunizations up to date: Yes Hx Diphtheria, Pertussis, Tetanus Vaccination: Yes Hx Pneumococcal Vaccination: 05/23/13 Review of Systems - Review of Systems Notes: REVIEW OF SYSTEMS: CONSTITUTIONAL : Denies fever, chills, or sweats. Denies recent illness. EENT: Denies eye, ear, throat, or mouth pain or symptoms. Denies nasal or sinus congestion or discharge. Denies throat, tongue, or mouth swelling or difficulty swallowing. CARDIOVASCULAR: Denies chest pain. Denies palpitations or racing or irregular heart beat. Denies ankle edema. RESPIRATORY: Denies cough, cold, or chest congestion. Denies shortness of breath, difficulty breathing, or wheezing. GASTROINTESTINAL: Denies abdominal pain or distention. Denies nausea, vomiting , or diarrhea. Denies blood in vomitus, stools, or per rectum. Denies black, tarry stools. Denies constipation. GENITOURINARY: Denies difficulty urinating, painful urination, burning, frequency, blood in urine, or discharge. MUSCULOSKELETAL: Denies back or neck pain or stiffness. Denies joint pain or swelling. SKIN: Admits to finger wound HEMATOLOGIC : Denies easy bruising or bleeding. LYMPHATIC: Denies swollen, enlarged glands. NEUROLOGICAL: Denies confusion or altered mental status. Denies passing out or loss of consciousness. Denies dizziness or lightheadedness. Denies headache. Denies weakness or paralysis or loss of use of either side. Denies problems with gait or speech. Denies sensory loss, numbness, or tingling. Denies seizures. PSYCHIATRIC: Denies anxiety or stress. Denies depression, suicidal ideation, or homicidal ideation. ALL OTHER SYSTEMS REVIEWED AND NEGATIVE. Dictation was performed using [employer] voice recognition software PHYSICAL EXAMINATION: GENERAL: Well-appearing, well-nourished and in no acute distress. HEAD: Atraumatic, normocephalic. EYES: Pupils equal round and reactive to light, extraocular movements intact, sclera anicteric, conjunctiva are normal. ENT: Nares patent, oropharynx clear without exudates. Moist mucous membranes. NECK: Normal range of motion, supple without lymphadenopathy LUNGS: Breath sounds clear to auscultation bilaterally and equal. No wheezes rales or rhonchi. HEART: Regular rate and rhythm without murmurs ABDOMEN: Soft, nontender, nondistended abdomen. No guarding, no rebound. No masses appreciated. Musculoskeletal: Normal range of motion, no pitting or edema. No cyanosis. NEUROLOGICAL: Cranial nerves grossly intact. Normal speech, normal gait. Normal sensory, motor exams PSYCH: Normal mood, normal affect. SKIN: Bilateral lower extremity drainage chronic diabetic ulcerations, left hand second digit dorsal aspect has infected ulceration that is not involved to joint and is superficial patient has superficial cellulitis to the base of the digit Physical Exam - Vital signs Vitals: Temp Pulse Resp BP Pulse Ox 97.8 F 83 18 113/73 95 02/01/17 05:00 02/01/17 05:00 02/01/17 05:00 02/01/17 05:00 02/01/17 05:00 Course - Re-evaluation Re-evalutation: 02/01/17 05:48 Patient will be given IV antibiotics in the emergency department will be discharged home with same. He has follow-up with the wound care clinic in a few hours I believe it is appropriate for them to evaluate the finger as well to determine if it requires any debridement There is no joint involvement at this time but my concerns for loss of digit and limb have been conveyed to the patient After performing a Medical Screening Examination, I estimate there is LOW risk for OPEN FRACTURE, COMPARTMENT SYNDROME, TENDON RUPTURE, ACUTE NEUROVASCULAR INJURY, or RETAINED FOREIGN BODY, thus I consider the discharge disposition reasonable. Also, there is no evidence or peritonitis, sepsis, or toxicity. I have reevaluated this patient multiple times and no significant life threatening changes are noted. The patient and I have discussed the diagnosis and risks, and we agree with discharging home with close follow-up with the understanding that symptoms and presentations can change. We also discussed returning to the Emergency Department immediately if new or worsening symptoms occur. We have discussed the symptoms which are most concerning (e.g., changing or worsening pain, fever, numbness, weakness, cool or painful digits) that necessitate immediate return. - Vital Signs Vital signs: Temp Pulse Resp BP Pulse Ox 97.8 F 83 18 113/73 95 02/01/17 05:00 02/01/17 05:00 02/01/17 05:00 02/01/17 05:00 02/01/17 05:00 - Laboratory Result Diagrams: 02/01/17 05:25 02/01/17 05:25 Discharge - Discharge Clinical Impression: Left hand second finger infection Diabetes Qualifiers: Diabetes mellitus type: due to underlying condition Diabetes mellitus complication status: with skin complications Diabetes mellitus complication detail: with other skin ulcer Diabetes mellitus fpc insulin use: with termite exterminator use Qualified Code(s): E08.622 - Diabetes mellitus due to underlying condition with other skin ulcer Condition: Stable Disposition: HOME, SELF-CARE Instructions: Prophylactic Antibiotic ([facility]) Additional Instructions: You must follow-up with your appointment at the wound care clinic at 9:30 AM for evaluation of your finger Prescriptions: Clindamycin HCl 300 mg PO Q6 #40 capsule Referrals: JOSE CEDEÑO MD [Primary Care Provider] - Follow up as needed
[2017-02-01 05:51] LABS: ALANINE AMINOTRANSFERASE 23 U/L (21-72); ALBUMIN 3.8 g/dL (3.5-5.0); ALKALINE PHOSPHATASE 104 U/L (38-126); ANION GAP 14 (5-19); ASPARTATE AMINO TRANSFERASE 29 U/L (17-59); BILIRUBIN,DIRECT 0.8 mg/dL (0.0-0.4); BILIRUBIN,TOTAL 0.8 mg/dL (0.2-1.3); BLOOD UREA NITROGEN 35 mg/dL (7-20); CALCIUM 8.3 mg/dL (8.4-10.2); CARBON DIOXIDE 26 mmol/L (22-30); CHLORIDE 100 mmol/L (98-107); CREATININE RESULT 4.72 mg/dL (0.52-1.25); GLUCOSE 85 mg/dL (75-110); POTASSIUM 4.5 mmol/L (3.6-5.0); SODIUM 139.5 mmol/L (137-145); TOTAL PROTEIN 7.5 g/dL (6.3-8.2)
[2017-02-01 05:52] LABS: ABSOLUTE BASOPHILS # (AUTO) 0.1 10^3/uL (0.0-0.2); ABSOLUTE EOSINOPHILS # (AUTO) 0.3 10^3/uL (0.0-0.6); ABSOLUTE LYMPHOCYTES (AUTO) 0.5 10^3/uL (0.5-4.7); ABSOLUTE MONOCYTES (AUTO) 0.5 10^3/uL (0.1-1.4); ABSOLUTE NEUT (AUTO) 3.1 10^3/uL (1.7-8.2); BASOPHILS % (AUTO) 1.3 % (0-2); EOSINOPHILS % (AUTO) 7.7 % (0-6); HEMATOCRIT 25.5 % (37.9-51.0); HEMOGLOBIN 8.2 g/dL (13.5-17.0); HGB HCT DIFFERENCE -0.9; LYMPHOCYTES % (AUTO) 10.9 % (13-45); MEAN CORPUSCULAR HEMOGLOBIN 31.2 pg (27.0-33.4); MEAN CORPUSCULAR HGB CONC 32.1 g/dL (32.0-36.0); MEAN CORPUSCULAR VOLUME 97 fl (80-97); MONOCYTES % (AUTO) 10.1 % (3-13); RED BLOOD COUNT 2.63 10^6/uL (4.35-5.55); RED CELL DISTRIBUTION WIDTH 21.5 % (11.5-14.0); WHITE BLOOD COUNT 4.4 10^3/uL (4.0-10.5)
[2017-02-01 07:19] VITALS: BP 99/76
== END 2017-02-01 07:16 | disposition home or self-care (01) ==
LOC: ER 04:55
DX: L03.012 Cellulitis of left finger (principal); E08.622 Diabetes mellitus due to underlying condition with other skin ulcer; L98.499 Non-pressure chronic ulcer of skin of other sites with unspecified severity; T23.022S Burn of unspecified degree of single left finger (nail) except thumb, sequela; X08.8XXS Exposure to other specified smoke, fire and flames, sequela
CPT/HCPCS: 99283; 96365; 36415; 87040; 85025; 80053; A9270

== ENCOUNTER 2017-02-18 23:22 | Emergency (ER) | payer MEDICARE ==
[2017-02-19 00:24] LABS: ABSOLUTE BASOPHILS # (AUTO) 0.1 10^3/uL (0.0-0.2); ABSOLUTE EOSINOPHILS # (AUTO) 0.2 10^3/uL (0.0-0.6); ABSOLUTE LYMPHOCYTES (AUTO) 0.5 10^3/uL (0.5-4.7); ABSOLUTE MONOCYTES (AUTO) 0.5 10^3/uL (0.1-1.4); BASOPHILS % (AUTO) 1.1 % (0-2); EOSINOPHILS % (AUTO) 3.2 % (0-6); HEMATOCRIT 26.5 % (37.9-51.0); HEMOGLOBIN 8.6 g/dL (13.5-17.0); HGB HCT DIFFERENCE -0.7; LYMPHOCYTES % (AUTO) 9.5 % (13-45); MEAN CORPUSCULAR HEMOGLOBIN 32.1 pg (27.0-33.4); MEAN CORPUSCULAR HGB CONC 32.2 g/dL (32.0-36.0); MEAN CORPUSCULAR VOLUME 100 fl (80-97); MONOCYTES % (AUTO) 9.4 % (3-13); RED BLOOD COUNT 2.66 10^6/uL (4.35-5.55); RED CELL DISTRIBUTION WIDTH 19.3 % (11.5-14.0); SEGMENTED NEUTROPHILS % (AUTO) 76.8 % (42-78); WHITE BLOOD COUNT 5.2 10^3/uL (4.0-10.5)
[2017-02-19 00:36] LABS: ANION GAP 15 (5-19); BLOOD UREA NITROGEN 28 mg/dL (7-20); CALCIUM 8.4 mg/dL (8.4-10.2); CARBON DIOXIDE 27 mmol/L (22-30); CHLORIDE 101 mmol/L (98-107); GLUCOSE 136 mg/dL (75-110); POTASSIUM 3.9 mmol/L (3.6-5.0); SODIUM 142.7 mmol/L (137-145)
--- NOTE | 2017-02-19 00:47 | RADIOLOGY REPORT (SQ) ---
EXAM DESCRIPTION: CHEST SINGLE VIEW COMPLETED DATE/TIME: 02/19/2017 12:30 am REASON FOR STUDY: sob COMPARISON: 12/11/2016. EXAM PARAMETERS: NUMBER OF VIEWS: One view. TECHNIQUE: Single frontal radiographic view of the chest acquired. RADIATION DOSE: NA LIMITATIONS: None. FINDINGS: LUNGS AND PLEURA: Moderate opacity -layered effusion of the left lower lobe. MEDIASTINUM AND HILAR STRUCTURES: No masses. Contour normal. HEART AND VASCULAR STRUCTURES: Moderate enlargement of the cardiac silhouette. BONES: No acute findings. HARDWARE: Right internal jugular multi lumen catheter tip at the cavoatrial junction. Left cardiac s timulation device and leads. Mediastinal- cardiac clip. OTHER: No other significant finding. IMPRESSION: Increased small- moderate left basilar opacity -effusion. TECHNICAL DOCUMENTATION: JOB ID: [id number]
--- NOTE | 2017-02-19 01:06 | ER Document Report ---
ED General - General Chief Complaint: Shortness Of Breath Stated Complaint: SHORTNESS OF BREATH Time Seen by Provider: 02/18/17 23:53 Notes: Patient is a 61-year-old male with an extensive past medical history including CHF, dialysis dependent, chronic lung disease, chronic orthopnea who presents with an episode of orthopnea just prior to arrival. Patient states when he tried to lay down to go to sleep he became acutely short of breath that came to the emergency department. Notes that he has had similar symptoms in the past. He denies any symptoms at time of my assessment. Denies any chest pain, fever, vomiting, or exertional dyspnea. He did receive dialysis today. He has not seen his primary care doctor regarding today's concerns. TRAVEL OUTSIDE OF THE [place] IN LAST 30 DAYS: No - Related Data Allergies/Adverse Reactions: heparin Allergy (Verified 02/19/17 00:24) Past Medical History - General Information source: Patient - Social History Smoking Status: Former Smoker Frequency of alcohol use: None Drug Abuse: None Lives with: Family Family History: CAD, DM Patient has suicidal ideation: No Patient has homicidal ideation: No - Past Medical History Cardiac Medical History: Reports: Hx Congestive Heart Failure, Hx Heart Attack, Hx Hypertension Endocrine Medical History: Reports: Hx Diabetes Mellitus Type 2 Renal/ Medical History: Denies: Hx Peritoneal Dialysis Musculoskeltal Medical History: Reports Hx Arthritis, Reports Hx Musculoskeletal Deformity, Reports Hx Musculoskeletal Trauma Psychiatric Medical History: Reports: Hx Depression Past Surgical History: Reports: Hx Appendectomy, Hx Cardiac Catheterization, Hx Cardiac Surgery - triple bypass, Hx Orthopedic Surgery - right knee replacement , Hx Rectal Surgery - abscess years agoComment Only: Hx Abdominal Surgery - current hernia - Immunizations Immunizations up to date: Yes Hx Diphtheria, Pertussis, Tetanus Vaccination: Yes Hx Pneumococcal Vaccination: 05/23/13 Review of Systems - Review of Systems Notes: Constitutional: Negative for fever. HENT: Negative for sore throat. Eyes: Negative for visual changes. Cardiovascular: Negative for chest pain. Respiratory: Positive for shortness of breath. Gastrointestinal: Negative for abdominal pain, vomiting or diarrhea. Genitourinary: Negative for dysuria. Musculoskeletal: Negative for back pain. Skin: Negative for rash. Neurological: Negative for headaches, weakness or numbness. 10 point ROS negative except as marked above and in HPI. Physical Exam - Vital signs Vitals: Temp Pulse Resp BP Pulse Ox 98.6 F 82 24 H 101/59 L 98 02/18/17 23:24 02/18/17 23:24 02/18/17 23:24 02/18/17 23:24 02/18/17 23:24 Interpretation: Tachypneic Notes: PHYSICAL EXAMINATION: GENERAL: Appears older than stated age but in no acute distress HEAD: Atraumatic, normocephalic. EYES: Pupils equal round and reactive to light, extraocular movements intact, sclera anicteric, conjunctiva are normal. ENT: nares patent, oropharynx clear without exudates. Moist mucous membranes. NECK: Normal range of motion, supple without lymphadenopathy LUNGS: Mildly diminished breath sounds at the left base. No wheezes or rales. Clear breath sounds on the right. HEART: Regular rate and rhythm without murmurs ABDOMEN: Soft, nontender, normoactive bowel sounds. No guarding, no rebound. No masses appreciated. EXTREMITIES: Normal range of motion, no pitting or edema. No cyanosis. NEUROLOGICAL: No focal neurological deficits. Moves all extremities spontaneously and on command. PSYCH: Normal mood, normal affect. SKIN: Warm, Dry, normal turgor, there is a healing wound to the Achilles tendon over the distal right lower extremity Course - Re-evaluation Re-evalutation: 02/19/17 01:03 Patient presents with complaints of orthopnea worse than baseline although does report a history of chronic orthopnea. At time of my assessment he no longer notes any shortness of breath, is not tachypneic, hypoxemic or tachycardic. Denies any chest pain or pleuritic pain. States he has a long-standing history of similar symptoms in the past and states "I get scared given everything that happened to be in the past". He denies any abdominal pain, unilateral leg swelling and states at this moment he feels at his baseline. Slightly diminished breath sounds at left base and small pleural effusion is seen on the x-ray which has been present on prior images. His labs are unremarkable, troponin negative, EKG without ischemic changes. Given the patient is now a symptomatic and his symptoms occurred with lying flat which she states she has had in the past, I do not believe any further workup or evaluation is indicated at this time. I do not suspect an acute aortic dissection, pulmonary embolus, ACS, spontaneous pneumothorax or an acute pneumonia based on exam, vitals and history. At this time will discharge with return precautions and follow-up recommendations. Verbal discharge instructions given a the bedside and opportunity for questions given. Medication warnings reviewed. Patient is in agreement with this plan and has verbalized understanding of return precautions and the need for primary care follow-up in the next 24-72 hours. - Vital Signs Vital signs: Temp Pulse Resp BP Pulse Ox 98.6 F 82 28 H 114/81 93 02/18/17 23:24 02/18/17 23:24 02/19/17 00:09 02/19/17 00:00 02/19/17 00:00 - Laboratory Result Diagrams: 02/19/17 00:00 02/19/17 00:00 Laboratory results interpreted by me: 02/19/17 02/19/17 00:00 00:00 RBC 2.66 L Hgb 8.6 L Hct 26.5 L MCV 100 H RDW 19.3 H Plt Count 131 L Lymphocytes % 9.5 L BUN 28 H Creatinine 3.60 H Est GFR ( Amer) 21 L Est GFR (Non-Af Amer) 17 L Glucose 136 H - Diagnostic Test Radiology reviewed: Image reviewed, Reports reviewed Radiology results interpreted by me: 02/19/17 06:40 Chest x-ray: Small left pleural effusion - EKG Interpretation by Me Additional EKG results interpreted by me: 02/19/17 06:41 V paced rhythm. Rate 82 Discharge - Discharge Clinical Impression: Orthopnea Condition: Good Disposition: HOME, SELF-CARE Additional Instructions: Your x-ray is unchanged from prior but does show small amount of fluid at the left lung base. Please follow-up with your primary doctor regarding this finding for continued monitoring. The remainder of your labs are unchanged from prior. The cause of your symptoms today is likely related to your history of congestive heart failure and dialysis dependence. Please return if you develop recurrence of shortness of breath, chest pain, fever, vomiting, or any other symptoms that are worrisome to you. Referrals: JOSE CEDEÑO MD [Primary Care Provider] - Follow up as needed
[2017-02-19 01:27] VITALS: BP 114/81
--- NOTE | 2017-02-19 16:38 | EKG REPORT ---
SEVERITY:- ABNORMAL ECG - VENTRICULAR-PACED COMPLEXES NONSPECIFIC IVCD WITH LAD LVH WITH SECONDARY REPOLARIZATION ABNORMALITY CONSIDER UNDERLYING A FIB : Confirmed by: Johnny Juárez 19-Feb-2017 16:37:16
== END 2017-02-19 01:20 | disposition home or self-care (01) ==
LOC: ER 23:22
DX: R06.01 Orthopnea (principal); R06.02 Shortness of breath; I50.9 Heart failure, unspecified; Z99.2 Dependence on renal dialysis; J98.4 Other disorders of lung; Z87.891 Personal history of nicotine dependence
CPT/HCPCS: 36415; 71010; 80048; 84484; 85025; 93005; 93010; 99285

== ENCOUNTER 2017-03-03 14:58 | Inpatient (IN) | payer MEDICARE ==
[2017-03-03] MEDS ORDERED: VANCOMYCIN HCL INJ 1000 MG VIAL IV ONE (15:33)
[2017-03-03] MEDS ORDERED: PIPERACILLIN/TAZOBACTAM 3.375 GM VIAL IV ONE (15:34)
[2017-03-03 15:41] LABS: ABSOLUTE BASOPHILS # (AUTO) 0.1 10^3/uL (0.0-0.2); ABSOLUTE EOSINOPHILS # (AUTO) 0.1 10^3/uL (0.0-0.6); ABSOLUTE LYMPHOCYTES (AUTO) 0.6 10^3/uL (0.5-4.7); ABSOLUTE MONOCYTES (AUTO) 0.4 10^3/uL (0.1-1.4); ABSOLUTE NEUT (AUTO) 4.4 10^3/uL (1.7-8.2); BASOPHILS % (AUTO) 1.1 % (0-2); EOSINOPHILS % (AUTO) 1.5 % (0-6); HEMATOCRIT 32.2 % (37.9-51.0); HEMOGLOBIN 10.5 g/dL (13.5-17.0); HGB HCT DIFFERENCE -0.7; LYMPHOCYTES % (AUTO) 11.5 % (13-45); MEAN CORPUSCULAR HEMOGLOBIN 32.5 pg (27.0-33.4); MEAN CORPUSCULAR HGB CONC 32.6 g/dL (32.0-36.0); MEAN CORPUSCULAR VOLUME 100 fl (80-97); MONOCYTES % (AUTO) 6.6 % (3-13); RED BLOOD COUNT 3.23 10^6/uL (4.35-5.55); RED CELL DISTRIBUTION WIDTH 18.3 % (11.5-14.0); SEGMENTED NEUTROPHILS % (AUTO) 79.3 % (42-78); WHITE BLOOD COUNT 5.5 10^3/uL (4.0-10.5)
[2017-03-03 15:58] LABS: ALANINE AMINOTRANSFERASE 22 U/L (21-72); ALBUMIN 4.5 g/dL (3.5-5.0); ALKALINE PHOSPHATASE 154 U/L (38-126); ANION GAP 17 (5-19); ASPARTATE AMINO TRANSFERASE 47 U/L (17-59); BILIRUBIN,DIRECT 0.9 mg/dL (0.0-0.4); BILIRUBIN,TOTAL 0.9 mg/dL (0.2-1.3); BLOOD UREA NITROGEN 59 mg/dL (7-20); CALCIUM 8.3 mg/dL (8.4-10.2); CARBON DIOXIDE 23 mmol/L (22-30); CHLORIDE 97 mmol/L (98-107); CREATINE KINASE 141 U/L (55-170); CREATININE RESULT 6.71 mg/dL (0.52-1.25); GLUCOSE 75 mg/dL (75-110); LIPASE 90.6 U/L (23-300); POTASSIUM 4.5 mmol/L (3.6-5.0); TOTAL PROTEIN 8.6 g/dL (6.3-8.2)
[2017-03-03 16:00] LABS: ALCOHOL < 10 mg/dL (NONE DETECTED)
[2017-03-03 16:00] LABS: APPEARANCE,URINE SLIGHTLY-CLOUDY; BILIRUBIN,URINE NEGATIVE (NEGATIVE); GLUCOSE, URINE NEGATIVE (NEGATIVE); KETONES,URINE NEGATIVE (NEGATIVE); LEUKOCYTE ESTERASE,URINE SMALL (NEGATIVE); NITRITE,URINE NEGATIVE (NEGATIVE); PROTEIN,URINE 30 mg/dL (NEGATIVE); URINE SPECIFIC GRAVITY 1.013; UROBILINOGEN,URINE NEGATIVE mg/dL (<2.0)
--- NOTE | 2017-03-03 16:06 | ER Document Report ---
ED General - General Chief Complaint: Altered Mental Status Stated Complaint: ALTERED MENTAL STATUS Time Seen by Provider: 03/03/17 15:09 Notes: The patient is a 61-year-old male, past medical history ESRD ([facility]), CHF, chronic bilateral leg wounds, presents with 5 hours of increased confusion and altered mental status. He was at dialysis and received his half treatment today because he began to think he was in [place] and did not know his name. History obtained through EMS, as no family is in the emergency room. Patient is unable to provide any additional history. called into ER. She states that patient had a left upper extremity fistula placed 2 days ago. He has been confused for the past 2 days and this frequent occurs after anesthesia. The confusion sually resolves after dialysis. His primary care physician, who the cannot remember the name, refuses to continue to treat him because of his noncompliance. His [employer] is Dr. Walter at [facility]. TRAVEL OUTSIDE OF THE [place] IN LAST 30 DAYS: No - Related Data Allergies/Adverse Reactions: heparin Allergy (Verified 02/19/17 00:24) enoxaparin [From Lovenox] Adverse Reaction (Verified 03/03/17 16:26) Past Medical History - General Information source: Emergency Med Personnel - Social History Smoking Status: Unknown if Ever Smoked Family History: CAD, DM - Past Medical History Cardiac Medical History: Reports: Hx Congestive Heart Failure, Hx Heart Attack, Hx Hypertension Endocrine Medical History: Reports: Hx Diabetes Mellitus Type 2 Renal/ Medical History: Denies: Hx Peritoneal Dialysis Musculoskeltal Medical History: Reports Hx Arthritis, Reports Hx Musculoskeletal Deformity, Reports Hx Musculoskeletal Trauma Psychiatric Medical History: Reports: Hx Depression Past Surgical History: Reports: Hx Appendectomy, Hx Cardiac Catheterization, Hx Cardiac Surgery - triple bypass, Hx Orthopedic Surgery - right knee replacement , Hx Rectal Surgery - abscess years agoComment Only: Hx Abdominal Surgery - current hernia - Immunizations Immunizations up to date: Yes Hx Diphtheria, Pertussis, Tetanus Vaccination: Yes Hx Pneumococcal Vaccination: 05/23/13 Review of Systems - Review of Systems -: Yes ROS unobtainable due to patient's medical condition Physical Exam - Vital signs Vitals: Resp 16 03/03/17 15:06 - Notes Notes: PHYSICAL EXAMINATION: GENERAL: In no acute distress. HEAD: Atraumatic, normocephalic. EYES: Pupils equal round and reactive to light, extraocular movements intact, sclera anicteric, conjunctiva are normal. ENT: nares patent, oropharynx clear without exudates. Moist mucous membranes. NECK: Normal range of motion, supple without lymphadenopathy LUNGS: Breath sounds clear to auscultation bilaterally and equal. No wheezes rales or rhonchi. HEART: Regular rate and rhythm without murmurs ABDOMEN: Soft, nontender, normoactive bowel sounds. No guarding, no rebound. No masses appreciated. EXTREMITIES: 5cm x 12cm wound over right posterior heel without redness or drainage; strong distal pulses NEUROLOGICAL: alert, awake, oriented x 1 (name only); moving all 4 extremities; unable to test sensation Course - Re-evaluation Re-evalutation: Pt is having altered mental status for the past 2 days and has missed the last 2 dialysis courses. He only received a half course today before he was sent to the ER. The said this this is a common reaction after anesthesia. Patient was also started on Sprague after his surgery looking through his medical records , and this may be partially leading to his confusion. Narcan was provided without any change in mental status. Patient with dry cough and possible pneumonia on chest x-ray. Due to undifferentiated nature currently, broad- spectrum antibiotics started. No chest pain and EKG/troponin do not show evidence of ACS at this time. Patient requires admission for further evaluation , observation and treatment. 03/03/17 17:[address] Walter (Nephrology) and he will be able to help arrange dialysis for the patient. 03/03/17 17:[address] Barahona and he will admit patient as Inpatient to [facility]. - Vital Signs Vital signs: Temp Pulse Resp BP Pulse Ox 16 113/81 95 03/03/17 17:01 03/03/17 17:01 03/03/17 17:01 - Laboratory Result Diagrams: 03/03/17 15:25 03/03/17 15:25 Laboratory results interpreted by me: 03/03/17 03/03/17 03/03/17 15:25 15:25 15:25 RBC 3.23 L Hgb 10.5 L Hct 32.2 L MCV 100 H RDW 18.3 H Plt Count 145 L Seg Neutrophils % 79.3 H Lymphocytes % 11.5 L PT APTT VBG pH Chloride 97 L BUN 59 H Creatinine 6.71 H Est GFR ( Amer) 10 L Est GFR (Non-Af Amer) 8 L Calcium 8.3 L Direct Bilirubin 0.9 H Alkaline Phosphatase 154 H NT-Pro-B Natriuret Pep 04422 H Total Protein 8.6 H Urine Protein Urine Blood Ur Leukocyte Esterase Salicylates < 1.0 L Acetaminophen 03/03/17 03/03/17 03/03/17 15:25 15:25 15:33 RBC Hgb Hct MCV RDW Plt Count Seg Neutrophils % Lymphocytes % PT 45.4 H APTT 47.0 H VBG pH Chloride BUN Creatinine Est GFR ( Amer) Est GFR (Non-Af Amer) Calcium Direct Bilirubin Alkaline Phosphatase NT-Pro-B Natriuret Pep Total Protein Urine Protein 30 H Urine Blood LARGE H Ur Leukocyte Esterase SMALL H Salicylates Acetaminophen < 10 L 03/03/17 17:15 RBC Hgb Hct MCV RDW Plt Count Seg Neutrophils % Lymphocytes % PT APTT VBG pH 7.26 L Chloride BUN Creatinine Est GFR ( Amer) Est GFR (Non-Af Amer) Calcium Direct Bilirubin Alkaline Phosphatase NT-Pro-B Natriuret Pep Total Protein Urine Protein Urine Blood Ur Leukocyte Esterase Salicylates Acetaminophen - Diagnostic Test Radiology reviewed: Image reviewed, Reports reviewed Radiology results interpreted by me: CT Head: NAD CXR: There is patchy airspace disease in the left retrocardiac region likely atelectasis. Pneumonia could not be excluded. Trace left pleural effusion. Findings are similar compared to 02/19/2017. - EKG Interpretation by Me When compared to previous EKG there are: No significant change Additional EKG results interpreted by me: Ventricular paced Discharge - Discharge Clinical Impression: Altered mental status Qualifiers: Altered mental status type: unspecified Qualified Code(s): R41.82 - Altered mental status, unspecified Condition: Stable Disposition: ADMITTED INPATIENT Admitting Provider: Hospitalist - [facility] Unit Admitted: Telemetry Referrals: JOSE CEDEÑO MD [Primary Care Provider] - Follow up as needed
[2017-03-03 16:11] LABS: URINE BARBITURATES SCREEN NEGATIVE; URINE METHADONE SCREEN NEGATIVE; URINE OPIATES LOW UNCONFIRMED POSITIVE; URINE PHENCYCLIDINE SCREEN NEGATIVE
[2017-03-03] MEDS ORDERED: NALOXONE HCL INJ/PF 0.4 MG/1 ML SDV IV ONE (16:14)
[2017-03-03 16:19] LABS: PROTHROMBIN TIME 45.4 SEC (11.4-15.4)
[2017-03-03 16:24] LABS: TROPONIN I 0.037 ng/mL
--- NOTE | 2017-03-03 16:37 | RADIOLOGY REPORT (SQ) ---
EXAM DESCRIPTION: CT HEAD WITHOUT COMPLETED DATE/TIME: 03/03/2017 4:11 pm REASON FOR STUDY: AMS COMPARISON: 10/22/2013 TECHNIQUE: Axial images acquired through the brain without intravenous contrast. Images reviewed wi th bone, brain and subdural windows. Images stored on PACS. All CT scanners at this facility use dose modulation, iterative reconstruction, and/or weight based d osing when appropriate to reduce radiation dose to as low as reasonably achievable (ALARA). [facility]: Dose Right [facility]: CareDose [facility]: Dose Right [facility]: Teradose 4D [facility]: [employer] Technologies RADIATION DOSE: Up-to-date CT equipment and radiation dose reduction techniques were employed. CTDIv ol: 64.6 mGy. DLP: 2430 mGy-cm. mGy. LIMITATIONS: None. FINDINGS: VENTRICLES: Normal size and contour. CEREBRUM: No masses. No hemorrhage. No midline shift. Normal maya/white matter differentiation. N o evidence for acute infarction. CEREBELLUM: No masses. No hemorrhage. No alteration of density. No evidence for acute infarction. EXTRAAXIAL SPACES: No fluid collections. No masses. ORBITS AND GLOBE: No intra- or extraconal masses. Normal contour of globe without masses. CALVARIUM: No fracture. PARANASAL SINUSES: No fluid or mucosal thickening. SOFT TISSUES: No mass or hematoma. OTHER: No other significant finding. IMPRESSION: NORMAL BRAIN CT WITHOUT CONTRAST. TECHNICAL DOCUMENTATION: JOB ID: [id number] Quality ID # [id number]: Final reports with documentation of one or more dose reduction techniques (e.g., Au tomated exposure control, adjustment of the mA and/or kV according to patient size, use of iterative reconstruction technique) 2010 [employer]- All Rights Reserved
--- NOTE | 2017-03-03 17:02 | RADIOLOGY REPORT (SQ) ---
EXAM DESCRIPTION: CHEST SINGLE VIEW COMPLETED DATE/TIME: 03/03/2017 4:14 pm REASON FOR STUDY: AMS COMPARISON: Chest films 01/17/2010, 03/23/2016, 10/28/2016, 12/11/2016, 02/19/2017 CT abdomen pelvis 01/09/2017 EXAM PARAMETERS: NUMBER OF VIEWS: One view. TECHNIQUE: Single frontal radiographic view of the chest acquired. RADIATION DOSE: NA LIMITATIONS: Lordotic portable film, obese patient. FINDINGS: LUNGS AND PLEURA: There is patchy airspace disease in the left retrocardiac region likely atelectasis. Pneumonia could not be excluded. Trace left pleural effusion. Findings are similar co mpared to 02/19/2017. Right lung clear. No right pleural fluid. No right or left pneumothorax. MEDIASTINUM AND HILAR STRUCTURES: No gross masses HEART AND VASCULAR STRUCTURES: Moderate cardiomegaly BONES: No acute findings. HARDWARE: Left-sided single lead pacemaker, right jugular central venous dialysis catheter unchanged OTHER: No other significant finding. IMPRESSION: Persistent left retrocardiac airspace disease with trace pleural effusion, similar janae red to 02/19/2017 chest films TECHNICAL DOCUMENTATION: JOB ID: [id number]
[2017-03-03 17:36] LABS: VENOUS BLOOD BASE EXCESS -3.4 mmol/L; VENOUS BLOOD HCO3 24.2 mmol/L (20-32); VENOUS BLOOD PCO2 55.6 mmHg (35-63); VENOUS BLOOD PH 7.26 (7.30-7.42)
[2017-03-03] MEDS ORDERED: NORMAL SALINE 1000 ML 1,000 ML IV PRN (18:24)
[2017-03-03] MEDS ORDERED: ACETAMINOPHEN 325 MG TABLET PO PRN (18:24)
[2017-03-03] MEDS ORDERED: ONDANSETRON HCL INJ/PF 4 MG/2 ML SDV IV PRN (18:31)
[2017-03-03] MEDS ORDERED: BISACODYL 10 MG SUPP.RECT PR ONE (18:39)
[2017-03-03] MEDS ORDERED: PIPERACILLIN/TAZOBACTAM 2.25 GM VIAL IV SCH (18:45)
--- NOTE | 2017-03-03 18:55 | PDOC H&P ---
History of Present Illness Admission Date/PCP: 03/03/17 17:52 JOSE CEDEÑO MD Patient complains of: Confusion History of Present Illness: HELIO HANKINS is a 61 year old male, with end-stage renal disease recently underwent arteriovenous grafting under anesthesia while on dialysis noted the patient to be confused. Patient did not complete dialysis and was brought to the emergency room for evaluation. There was no fever reported, there was no elevation in WBC noted. Patient with acidosis on venous blood gas. Chest x- ray did not reveal any acute abnormality. He has a wound on the right heel with reported necrosis but on evaluation it was dried dark secretions on the dressing and reportedly wound with some mild purulent drainage but after wound care the wound looks fine. Urinalysis was done showing pyuria. Patient had prior history of Pseudomonas urinary tract infection. Patient was started on vancomycin and Zosyn. Patient was then referred for admission. Patient unable to provide history at this time due to confusion therefore is unobtainable from the patient. Information obtained from old records and from emergency room record. Reportedly he has a cough but also having constipation problems. Drug screen was positive for opiates and benzodiazepine. No other information available at this time. Past Medical History Cardiac Medical History: Reports: Congestive Heart Failure, Myocardial Infarction, Hypertension Endocrine Medical History: Reports: Diabetes Mellitus Type 2 Musculoskeltal Medical History: Reports: Arthritis Psychiatric Medical History: Reports: Depression Hematology: Reports: Anemia - Chronic illness Past Surgical History Past Surgical History: Reports: Appendectomy, Cardiac Catheterization, Orthopedic Surgery - right knee replacement, Other - Recent AV graft placement Social History Information Source: [facility] Records Smoking Status: Unknown if Ever Smoked Frequency of Alcohol Use: None Hx Recreational Drug Use: No Drugs: None Hx Prescription Drug Abuse: No Family History Family History: CAD, DM Family History: Patient unable to perform provide history at this time. Old records were reviewed. Parental Family History Reviewed: No Children Family History Reviewed: No Sibling(s) Family History Reviewed.: No Medication/Allergy Home Medications: Gabapentin [Neurontin 100 mg Capsule] 300 mg PO TID 10/12/13 Furosemide [Lasix 40 mg Tablet] 40 mg PO QAM 01/02/15 Levothyroxine Sodium [Synthroid] 150 mcg PO DAILY 01/02/15 Apixaban [Eliquis 5 mg Tablet] 5 mg PO DAILY 03/23/16 Atorvastatin Calcium 40 mg PO DAILY 03/23/16 Insulin Aspart [Novolog Insulin 100 Unit/1 ml 10 ml] 0 unit SUBCUT .SLD SCALE Insulin Glargine,Hum.rec.anlog [Lantus] 100 unit SQ DAILY 03/23/16 Losartan Potassium [Cozaar 25 mg Tablet] 25 mg PO DAILY 03/23/16 Metolazone 5 mg PO DAILY 03/23/16 Levofloxacin [Levaquin 500 mg Tablet] 500 mg PO DAILY #6 tablet 01/09/17 Clindamycin HCl 300 mg PO Q6 #40 capsule 02/01/17 Allergies/Adverse Reactions: heparin Allergy (Verified 02/19/17 00:24) enoxaparin [From Lovenox] Adverse Reaction (Verified 03/03/17 16:26) Review of Systems ROS unobtainable: Due to mental status - Other than stated in the history and emergency room visit form no other information available at this time Physical Exam Vital Signs: Temp Pulse Resp BP Pulse Ox 14 116/75 94 03/03/17 18:02 03/03/17 18:02 03/03/17 18:02 General appearance: PRESENT: no acute distress, obese Head exam: PRESENT: atraumatic, normocephalic Eye exam: PRESENT: conjunctiva pale, EOMI. ABSENT: scleral icterus Ear exam: PRESENT: normal external ear exam. ABSENT: drainage Mouth exam: PRESENT: moist, neck supple, tongue midline Throat exam: ABSENT: post pharyngeal erythema Neck exam: ABSENT: carotid bruit, JVD, lymphadenopathy, thyromegaly Respiratory exam: PRESENT: clear to auscultation jimbo - Poor effort however. ABSENT: rales, rhonchi, wheezes Cardiovascular exam: PRESENT: RRR. ABSENT: diastolic murmur, rubs, systolic murmur Pulses: PRESENT: normal dorsalis pedis pul Vascular exam: PRESENT: normal capillary refill GI/Abdominal exam: PRESENT: hypoactive bowel sounds, soft. ABSENT: distended - Obese, guarding, mass, organolmegaly, rebound, tenderness Rectal exam: PRESENT: deferred Extremities exam: ABSENT: calf tenderness, clubbing, pedal edema Neurological exam: PRESENT: alert, altered, awake, other - Moves all 4 extremities equally. ABSENT: oriented to person, oriented to place, oriented to time Psychiatric exam: PRESENT: anxious Focused psych exam: PRESENT: restlessness - Slightly Skin exam: PRESENT: dry, warm, other - Patient noted with some skin tears on the medial aspect of the left thigh without purulent drainage, on the right heel the patient had a stage II wound with no evidence of necrosis or purulent drainage.. ABSENT: cyanosis, jaundice Results Impressions: Chest X-Ray 03/03/17 15:13 IMPRESSION: Persistent left retrocardiac airspace disease with trace pleural effusion, similar compared to 02/19/[address] 03/03/17 15:13 IMPRESSION: NORMAL BRAIN CT WITHOUT CONTRAST. Assessment & Plan - Diagnosis (1) Altered mental status Qualifiers: Altered mental status type: unspecified Qualified Code(s): R41.82 - Altered mental status, unspecified Is this a current diagnosis for this admission?: Yes (2) Coagulopathy Is this a current diagnosis for this admission?: Yes (3) End-stage renal disease on hemodialysis Is this a current diagnosis for this admission?: Yes (4) Abnormal urinalysis Is this a current diagnosis for this admission?: Yes (5) Multiple open wounds Is this a current diagnosis for this admission?: Yes (6) Anemia of chronic disease Is this a current diagnosis for this admission?: Yes (7) Essential hypertension Is this a current diagnosis for this admission?: Yes (8) Type 2 diabetes mellitus Qualifiers: Diabetes mellitus complication status: with unspecified complications Diabetes mellitus jail insulin use: unspecified rn long term care insulin use status Qualified Code(s): E11.8 - Type 2 diabetes mellitus with unspecified complications Is this a current diagnosis for this admission?: Yes (9) Degenerative joint disease Qualifiers: Osteoarthritis location: unspecified site Osteoarthritis type: unspecified Qualified Code(s): M19.90 - Unspecified osteoarthritis, unspecified site Is this a current diagnosis for this admission?: Yes (10) Depression Qualifiers: Depression Type: unspecified Qualified Code(s): F32.9 - Major depressive disorder, single episode, unspecified Is this a current diagnosis for this admission?: Yes - Time Time Spent: 50 to 70 Minutes - Inpatient Certification Based on my medical assessment, after consideration of the patient's comorbidities, presenting symptoms, or acuity I expect that the services needed warrant INPATIENT care.: Yes I certify that my determination is in accordance with my understanding of Medicare's requirements for reasonable and necessary INPATIENT services [42 CFR 412.3e].: Yes Medical Necessity: Significant Comorbidiites Make Outpatient Treatment Too Risky , Need Close Monitoring Due to Risk of Patient Decompensation, Need For IV Fluids, Need for IV Antibiotics, Risk of Complication if Not Cared For in Hospital, Risk of Diagnosis Which Will Require Inpatient Eval/Care/Monitoring Post 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 Blood and urine cultures will be sent. I will begin the patient on intravenous Zosyn. I will continue his apixaban. We will consult nephrology for continued dialysis. In the meantime I will give him Dulcolax suppository. I will hydrate with 1 L of normal saline. I will hold his diabetic medications and just put him on sliding scale insulin. Bacitracin will be placed for wound care and dressed with allevyn. Further testing depends on initial evaluations outlined above.
[2017-03-03] MEDS ORDERED: BACITRACIN ZINC OINTMENT 15 GM TP ONE (19:00)
--- NOTE | 2017-03-03 21:31 | EKG REPORT ---
SEVERITY:- ABNORMAL ECG - VENTRICULAR-PACED COMPLEXES NONSPECIFIC IVCD WITH LAD : Confirmed by: Johnny Juárez 03-Mar-2017 21:30:43
[2017-03-03] MEDS ORDERED: HEPARIN SOD (PORCINE) 5,000 UNIT/ML 1 ML SYRINGE SUBCUT SCH (22:00)
[2017-03-03] MEDS ORDERED: DEXTROSE 50%-WATER 25 GM/50 ML DISP.SYRIN IV ONE (23:07)
[2017-03-03] MEDS ORDERED: DEXTROSE 40% GEL 15 GM TUBE PO PRN ×2 (23:21)
[2017-03-03] MEDS ORDERED: DEXTROSE 50%-WATER 25 GM/50 ML DISP.SYRIN IV PRN (23:21)
[2017-03-03] MEDS ORDERED: GLUCAGON,HUMAN RECOMB 1 MG INJ IM PRN (23:21)
[2017-03-03] MEDS ORDERED: INSULIN LISPRO 100 UNIT/ML 3 ML VIAL SUBCUT PRN (23:21)
[2017-03-04] MEDS: PIPERACILLIN SODIUM/TAZOBACTAM 2.25 GM in NORMAL SALINE 50 ML IV SCH ×2 (02:39→12:28)
[2017-03-04 05:07] LABS: PARTIAL THROMBOPLASTIN TIME 56.9 SEC (23.5-35.8); PROTHROMBIN TIME 41.1 SEC (11.4-15.4)
[2017-03-04 05:17] LABS: ANION GAP 17 (5-19); BLOOD UREA NITROGEN 64 mg/dL (7-20); CALCIUM 8.1 mg/dL (8.4-10.2); CARBON DIOXIDE 20 mmol/L (22-30); CHLORIDE 99 mmol/L (98-107); CREATININE RESULT 7.64 mg/dL (0.52-1.25); GLUCOSE 78 mg/dL (75-110); POTASSIUM 5.1 mmol/L (3.6-5.0); SODIUM 136.2 mmol/L (137-145)
[2017-03-04 05:43] LABS: ABSOLUTE EOSINOPHILS # (AUTO) 0.1 10^3/uL (0.0-0.6); ABSOLUTE LYMPHOCYTES (AUTO) 0.3 10^3/uL (0.5-4.7); ABSOLUTE MONOCYTES (AUTO) 0.4 10^3/uL (0.1-1.4); ABSOLUTE NEUT (AUTO) 4.1 10^3/uL (1.7-8.2); BASOPHILS % (AUTO) 0.9 % (0-2); EOSINOPHILS % (AUTO) 1.1 % (0-6); HEMATOCRIT 29.9 % (37.9-51.0); HEMOGLOBIN 9.7 g/dL (13.5-17.0); HGB HCT DIFFERENCE -0.8; MEAN CORPUSCULAR HEMOGLOBIN 32.8 pg (27.0-33.4); MEAN CORPUSCULAR HGB CONC 32.5 g/dL (32.0-36.0); MEAN CORPUSCULAR VOLUME 101 fl (80-97); RED BLOOD COUNT 2.96 10^6/uL (4.35-5.55); RED CELL DISTRIBUTION WIDTH 18.8 % (11.5-14.0)
[2017-03-04] MEDS: LANSOPRAZOLE 30 MG TAB.RAP.DR PO SCH ×2 (05:45→17:54)
[2017-03-04] MEDS ORDERED: DEXTROSE 50%-WATER 25 GM/50 ML DISP.SYRIN IV ONE (06:45)
[2017-03-04] MEDS ORDERED: EPOETIN ALFA 10,000 UNIT in SYRINGE, DISPOSABLE, 1 EACH IV PRN (07:39)
[2017-03-04] MEDS: DEXTROSE 50%-WATER 25 GM/50 ML DISP.SYRIN IV PRN ×2 (09:47→19:37)
[2017-03-04] MEDS ORDERED: EPOETIN ALFA INJ 20000 UNIT/1 ML VIAL (RENAL) IV SCH (10:00)
[2017-03-04] MEDS ORDERED: APIXABAN 5 MG TABLET PO SCH (10:00)
[2017-03-04] MEDS ORDERED: LEVOTHYROXINE SODIUM 0.05 MG TABLET PO SCH (10:00)
[2017-03-04] MEDS ORDERED: GABAPENTIN 100 MG CAPSULE PO SCH (10:00)
[2017-03-04] MEDS: DOCUSATE SODIUM 100 MG CAPSULE PO SCH ×2 (10:55→17:54)
--- NOTE | 2017-03-04 11:20 | PDOC PROGRESS REPORT ---
Subjective Progress Note for:: 03/04/17 Subjective:: Patient in hemodialysis. Still exhibiting confusion. However patient able to respond. Restless at times. No reported respiratory distress, temperature spikes, diarrhea, nausea or vomiting. No reported pain. Patient able to move both upper extremities and lower extremities. Physical Exam Vital Signs: Temp Pulse Resp BP Pulse Ox 97.7 F 86 20 98/62 L 91 L 03/04/17 04:00 03/04/17 08:00 03/04/17 04:00 03/04/17 04:00 03/04/17 04:00 Intake & Output 03/03/17 03/04/17 03/05/17 06:59 06:59 06:59 Intake Total 1050 Balance 1050 Weight 128.3 kg General appearance: PRESENT: no acute distress, morbidly obese Head exam: PRESENT: normocephalic Eye exam: PRESENT: conjunctiva pale, EOMI Mouth exam: PRESENT: moist, neck supple Respiratory exam: PRESENT: clear to auscultation jimbo. ABSENT: rhonchi, wheezes Cardiovascular exam: PRESENT: RRR. ABSENT: gallop GI/Abdominal exam: PRESENT: hypoactive bowel sounds, soft Extremities exam: PRESENT: other - Trace pretibial edema Neurological exam: PRESENT: altered Skin exam: PRESENT: dry, warm, other - Lower extremity wounds clean and dry with no foul-smelling drainage noted. ABSENT: cyanosis Results Laboratory Results: 03/04/17 04:26 03/04/17 04:26 03/03/17 03/04/17 03/04/17 20:08 04:26 04:26 WBC 5.0 RBC 2.96 L Hgb 9.7 L Hct 29.9 L MCV 101 H MCH 32.8 MCHC 32.5 RDW 18.8 H Plt Count 96 L Seg Neutrophils % 83.0 H Lymphocytes % 6.0 L Monocytes % 9.0 Eosinophils % 1.1 Basophils % 0.9 Absolute Neutrophils 4.1 Absolute Lymphocytes 0.3 L Absolute Monocytes 0.4 Absolute Eosinophils 0.1 Absolute Basophils 0.0 Sodium 136.2 L Potassium 5.1 H Chloride 99 Carbon Dioxide 20 L Anion Gap 17 BUN 64 H Creatinine 7.64 H Est GFR ( Amer) 9 L Est GFR (Non-Af Amer) 7 L Glucose 78 Calcium 8.1 L Ammonia 78.3 H Impressions: Chest X-Ray 03/03/17 15:13 IMPRESSION: Persistent left retrocardiac airspace disease with trace pleural effusion, similar compared to 02/19/[address] 03/03/17 15:13 IMPRESSION: NORMAL BRAIN CT WITHOUT CONTRAST. Assessment & Plan - Diagnosis (1) Altered mental status Qualifiers: Altered mental status type: unspecified Qualified Code(s): R41.82 - Altered mental status, unspecified Is this a current diagnosis for this admission?: Yes (2) Coagulopathy Is this a current diagnosis for this admission?: Yes (3) End-stage renal disease on hemodialysis Is this a current diagnosis for this admission?: Yes (4) Abnormal urinalysis Is this a current diagnosis for this admission?: Yes (5) Multiple open wounds Is this a current diagnosis for this admission?: Yes (6) Anemia of chronic disease Is this a current diagnosis for this admission?: Yes (7) Essential hypertension Is this a current diagnosis for this admission?: Yes (8) Type 2 diabetes mellitus Qualifiers: Diabetes mellitus complication status: with unspecified complications Diabetes mellitus 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 Qualified Code(s): E11.8 - Type 2 diabetes mellitus with unspecified complications Is this a current diagnosis for this admission?: Yes (9) Degenerative joint disease Qualifiers: Osteoarthritis location: unspecified site Osteoarthritis type: unspecified Qualified Code(s): M19.90 - Unspecified osteoarthritis, unspecified site Is this a current diagnosis for this admission?: Yes (10) Depression Qualifiers: Depression Type: unspecified Qualified Code(s): F32.9 - Major depressive disorder, single episode, unspecified Is this a current diagnosis for this admission?: Yes - Time Time Spent with patient: 25-34 minutes - Plan Summary Plan Summary: Continue hemodialysis per nephrology service. Follow cultures. Continue to hold medications that can cause sedation. Continue Zosyn, add vancomycin. Continue supportive care.
[2017-03-04] MEDS: BACITRACIN ZINC OINTMENT 15 GM TP SCH ×2 (12:29→17:53)
--- NOTE | 2017-03-04 14:08 | PDOC CONSULTATION ---
Consultation Consult Date: 03/04/17 Consult reason:: Altered mental status and ESRD on dialysis History of Present Illness Admission Date/PCP: 03/03/17 18:25 JOSE CEDEÑO MD History of Present Illness: HELIO HANKINS is a 61 year old male, with end-stage renal disease recently underwent arteriovenous grafting under anesthesia who was on dialysis at [facility] was noted to be confused. Patient did not complete dialysis and was brought to the emergency room for evaluation. No complaints of any redness around the AV grafting site. There was no fever or apparent chills. On further evaluations in the ER, the patient was noted to have acidosis on venous blood gas. He had no leukocytosis. Chest x-ray did not reveal any acute abnormality. He has a wound on the right heel with reported necrosis but on evaluation it was dried dark secretions on the dressing and reportedly wound with some mild purulent drainage but after wound care the wound looks fine. Urinalysis was done showing pyuria. Patient has had prior history of Pseudomonas urinary tract infection. Patient was started on vancomycin and Zosyn. Reportedly he has a cough but also having constipation problems. Drug screen was positive for opiates and benzodiazepine. I am seeing the patient undergoing hemodialysis today. He still confused and disoriented. Patient unable to provide history at this time. Information obtained from old records and from emergency room record. Discussion was done with the dialysis nurse Sary. She mentions that his blood sugar was a bit on the low side and an amp of D50 was administered prior to his dialysis which raises sugars to around 120.I went on to ask for an of the Accu-Chek which came back with sugars at 70. Another amp of D50 was then ordered and administered but did not make any changes in his mental status though. R Past Medical History Cardiac Medical History: Reports: Myocardial Infarction Cardiac History Note: Chronic hypotension on Midodrin. Endocrine Medical History: Reports: Diabetes Mellitus Type 2 Renal/ Medical History: Reports: End Stage Renal Disease, Renal Osteodystropy Musculoskeltal Medical History: Reports: Arthritis Psychiatric Medical History: Reports: Depression Hematology Medical History: Reports Anemia of Chronic Kidney Disease Past Surgical History Past Surgical History: Reports: Appendectomy, Cardiac Catheterization, Orthopedic Surgery - right knee replacement, Other - Recent AV graft placement Social History Smoking Status: Unknown if Ever Smoked Frequency of Alcohol Use: None Hx Recreational Drug Use: No Drugs: None Hx Prescription Drug Abuse: No - Advance Directive Resuscitation Status: Full Code Family History Parental Family History Reviewed: No Children Family History Reviewed: No Sibling(s) Family History Reviewed.: No - Unable to be obtained because of his mental status changes. Medication/Allergy Home Medications: Gabapentin [Neurontin 300 mg Capsule] 600 mg PO DAILY 03/03/17 Midodrine HCl [Proamatine 5 Mg Tablet] 5 mg PO Q12 03/03/17 Sevelamer Carbonate [Renvela] 800 mg PO Q8 03/03/17 Venlafaxine HCl ER [Effexor Xr 37.5 mg Cap.sr] 37.5 mg PO DAILY 03/03/17 Warfarin Sodium [Coumadin 5 mg Tablet] 5 mg PO DAILY 03/03/17 Allergies/Adverse Reactions: heparin Allergy (Verified 02/19/17 00:24) enoxaparin [From Lovenox] Adverse Reaction (Verified 03/03/17 16:26) Review of Systems ROS unobtainable: Due to mental status Physical Exam Vital Signs: Temp Pulse Resp BP Pulse Ox 97.7 F 86 20 98/62 L 91 L 03/04/17 04:00 03/04/17 08:00 03/04/17 04:00 03/04/17 04:00 03/04/17 04:00 Intake & Output 03/03/17 03/04/17 03/05/17 06:59 06:59 06:59 Intake Total 1050 Balance 1050 Weight 128.3 kg General appearance: PRESENT: no acute distress Exam: Is confused and disoriented. He is laying in bed but sometimes wakes up and starts moving his hands and legs without any reason Eye exam: PRESENT: conjunctiva pink, EOMI, PERRLA Ear exam: PRESENT: normal external ear exam Mouth exam: PRESENT: moist, neck supple Neck exam: ABSENT: lymphadenopathy, meningismus, tenderness, thyromegaly, tracheal deviation Respiratory exam: PRESENT: clear to auscultation jimbo. ABSENT: crackles, rhonchi Cardiovascular exam: PRESENT: +S1, +S2, systolic murmur GI/Abdominal exam: PRESENT: normal bowel sounds, soft. ABSENT: organomegaly, tenderness Extremities exam: PRESENT: pedal edema Neurological exam: PRESENT: altered Skin exam: ABSENT: erythema, mottled, petechiae Results Laboratory Results: 03/04/17 04:26 03/04/17 04:26 03/03/17 03/04/17 03/04/17 20:08 04:26 04:26 WBC 5.0 RBC 2.96 L Hgb 9.7 L Hct 29.9 L MCV 101 H MCH 32.8 MCHC 32.5 RDW 18.8 H Plt Count 96 L Seg Neutrophils % 83.0 H Lymphocytes % 6.0 L Monocytes % 9.0 Eosinophils % 1.1 Basophils % 0.9 Absolute Neutrophils 4.1 Absolute Lymphocytes 0.3 L Absolute Monocytes 0.4 Absolute Eosinophils 0.1 Absolute Basophils 0.0 Sodium 136.2 L Potassium 5.1 H Chloride 99 Carbon Dioxide 20 L Anion Gap 17 BUN 64 H Creatinine 7.64 H Est GFR ( Amer) 9 L Est GFR (Non-Af Amer) 7 L Glucose 78 Calcium 8.1 L Ammonia 78.3 H Impressions: Chest X-Ray 03/03/17 15:13 IMPRESSION: Persistent left retrocardiac airspace disease with trace pleural effusion, similar compared to 02/19/[address] 03/03/17 15:13 IMPRESSION: NORMAL BRAIN CT WITHOUT CONTRAST. Assessment & Plan - Diagnosis (1) End-stage renal disease on hemodialysis Is this a current diagnosis for this admission?: Yes Plan: Patient was seen on dialysis. He is undergoing dialysis without any issues. Is being supervised to ensure a safe and smooth procedure. Hemodynamically stable but for slightly low blood pressure. He should be on Midodrin which I am ordering otherwise.His blood sugars were rather low around 70 on dialysis.However, administering D50 did not make any difference in his mental status though. (2) UTI (urinary tract infection) Plan: So far urine cultures are negative. Patient adequately covered with antibiotics. (3) Anemia in chronic kidney disease Plan: Adjust erythropoietin. (4) Altered mental status Qualifiers: Altered mental status type: unspecified Qualified Code(s): R41.82 - Altered mental status, unspecified Is this a current diagnosis for this admission?: Yes Plan: Metabolic. Monitor response to treatment of UTI. Also needs careful monitoring of blood sugars and I would avoid long acting insulin derivatives (5) Hypotension Plan: We will add Midodrin with hold orders if above 130 systolic.
[2017-03-04] MEDS ORDERED: LORAZEPAM INJ 2 MG/1 ML VIAL IV ONE (14:30)
[2017-03-04] MEDS ORDERED: VANCOMYCIN HCL 2,000 MG in DEXTROSE 5%-WATER 500 ML IV ONE (16:00)
[2017-03-04] MEDS ORDERED: HALOPERIDOL LACTATE INJ 5 MG/1 ML VIAL IM ONE (17:30)
[2017-03-04] MEDS ORDERED: MIDODRINE HCL 5 MG TABLET PO SCH (18:00)
[2017-03-04] MEDS ORDERED: NORMAL SALINE 1000 ML 500 ML IV ONE ×2 (20:36→23:45)
[2017-03-04] MEDS ORDERED: ACETAMINOPHEN 325 MG TABLET PO PRN (21:05)
[2017-03-04] MEDS ORDERED: INSULIN LISPRO 100 UNIT/ML 3 ML VIAL SUBCUT PRN (21:07)
[2017-03-04] MEDS: DEXTROSE 5%-NORMAL SALINE 1,000 ML IV PRN ×2 (21:20→22:27)
[2017-03-04] MEDS ORDERED: NORMAL SALINE 1000 ML 250 ML IV ONE (22:15)
[2017-03-04] MEDS ORDERED: MIDODRINE HCL 5 MG TABLET PO ONE (23:15)
[2017-03-05] MEDS: PIPERACILLIN SODIUM/TAZOBACTAM 2.25 GM in NORMAL SALINE 50 ML IV SCH ×4 (01:09→18:01)
[2017-03-05 04:53] LABS: HEMATOCRIT 27.6 % (37.9-51.0); MEAN CORPUSCULAR HEMOGLOBIN 32.2 pg (27.0-33.4); MEAN CORPUSCULAR HGB CONC 32.5 g/dL (32.0-36.0); MEAN CORPUSCULAR VOLUME 99 fl (80-97); RED BLOOD COUNT 2.78 10^6/uL (4.35-5.55); RED CELL DISTRIBUTION WIDTH 18.7 % (11.5-14.0); WHITE BLOOD COUNT 4.7 10^3/uL (4.0-10.5)
[2017-03-05 05:04] LABS: ANION GAP 15 (5-19); CALCIUM 8.2 mg/dL (8.4-10.2); CARBON DIOXIDE 26 mmol/L (22-30); CHLORIDE 100 mmol/L (98-107); CREATININE RESULT 6.17 mg/dL (0.52-1.25); GLUCOSE 87 mg/dL (75-110); SODIUM 140.7 mmol/L (137-145)
[2017-03-05 05:09] LABS: HGB HCT DIFFERENCE -0.6
[2017-03-05 05:18] LABS: BLOOD UREA NITROGEN 41 mg/dL (7-20)
[2017-03-05] MEDS: LANSOPRAZOLE 30 MG TAB.RAP.DR PO SCH ×2 (06:01→18:02)
--- NOTE | 2017-03-05 09:45 | PDOC PROGRESS REPORT ---
Subjective Progress Note for:: 03/05/17 Subjective:: Patient did have episode of hypotension after dialysis. IV fluids was given. Patient likewise noted with hypoglycemia and dextrose was given intravenously. Reported agitation intermittently but after bowel movement and wound care, patient calmed down and rested. No reported respiratory distress or temperature spikes. Still with confusion as reported. Physical Exam Vital Signs: Temp Pulse Resp BP Pulse Ox 98.1 F 79 12 109/65 98 03/05/17 08:08 03/05/17 08:08 03/05/17 08:00 03/05/17 08:08 03/05/17 08:08 Intake & Output 03/04/17 03/05/17 03/06/17 06:59 06:59 06:59 Intake Total 1050 3285 Output Total 2500 Balance 1050 785 Weight 128.3 kg 131.1 kg General appearance: PRESENT: no acute distress, obese Head exam: PRESENT: normocephalic Eye exam: PRESENT: EOMI Mouth exam: PRESENT: moist, neck supple Neck exam: ABSENT: JVD Respiratory exam: PRESENT: clear to auscultation jimbo. ABSENT: rhonchi, wheezes Cardiovascular exam: PRESENT: RRR. ABSENT: gallop GI/Abdominal exam: PRESENT: hypoactive bowel sounds, soft. ABSENT: distended Extremities exam: ABSENT: pedal edema Psychiatric exam: ABSENT: agitated Focused psych exam: ABSENT: restlessness Skin exam: PRESENT: dry, warm, other - Wound dressings were all clean and dry at this time.. ABSENT: cyanosis Results Laboratory Results: 03/05/17 04:21 03/05/17 04:21 03/05/17 03/05/17 04:21 04:21 WBC 4.7 RBC 2.78 L Hgb 9.0 L Hct 27.6 L MCV 99 H MCH 32.2 MCHC 32.5 RDW 18.7 H Plt Count 94 L Sodium 140.7 Potassium 4.0 D Chloride 100 Carbon Dioxide 26 Anion Gap 15 BUN 41 H D Creatinine 6.17 H Est GFR ( Amer) 11 L Est GFR (Non-Af Amer) 9 L Glucose 87 Calcium 8.2 L Impressions: Chest X-Ray 03/03/17 15:13 IMPRESSION: Persistent left retrocardiac airspace disease with trace pleural effusion, similar compared to 02/19/[address] 03/03/17 15:13 IMPRESSION: NORMAL BRAIN CT WITHOUT CONTRAST. Assessment & Plan - Diagnosis (1) Altered mental status Qualifiers: Altered mental status type: unspecified Qualified Code(s): R41.82 - Altered mental status, unspecified Is this a current diagnosis for this admission?: Yes (2) Coagulopathy Is this a current diagnosis for this admission?: Yes (3) End-stage renal disease on hemodialysis Is this a current diagnosis for this admission?: Yes (4) Abnormal urinalysis Is this a current diagnosis for this admission?: Yes (5) Multiple open wounds Is this a current diagnosis for this admission?: Yes (6) Anemia of chronic disease Is this a current diagnosis for this admission?: Yes (7) Essential hypertension Is this a current diagnosis for this admission?: Yes (8) Type 2 diabetes mellitus Qualifiers: Diabetes mellitus complication status: with unspecified complications Diabetes mellitus detention insulin use: unspecified detention insulin use status Qualified Code(s): E11.8 - Type 2 diabetes mellitus with unspecified complications Is this a current diagnosis for this admission?: Yes (9) Degenerative joint disease Qualifiers: Osteoarthritis location: unspecified site Osteoarthritis type: unspecified Qualified Code(s): M19.90 - Unspecified osteoarthritis, unspecified site Is this a current diagnosis for this admission?: Yes (10) Depression Qualifiers: Depression Type: unspecified Qualified Code(s): F32.9 - Major depressive disorder, single episode, unspecified Is this a current diagnosis for this admission?: Yes - Time Time Spent with patient: 25-34 minutes - Plan Summary Plan Summary: Continue antibiotics for now and follow cultures. We will decrease intravenous fluids and continue to monitor Accu-Cheks. We will begin diet. Continue wound care. Add laxatives with lactulose due to elevated ammonia. Check PT/INR. Continue supportive care.
[2017-03-05] MEDS ORDERED: VANCOMYCIN HCL INJ 1000 MG VIAL IV SCH (10:00)
[2017-03-05] MEDS: GABAPENTIN 300 MG CAPSULE PO SCH (10:38)
[2017-03-05] MEDS: DOCUSATE SODIUM 100 MG CAPSULE PO SCH ×2 (10:39→18:03)
[2017-03-05] MEDS: BACITRACIN ZINC OINTMENT 15 GM TP SCH ×2 (10:39→18:05)
[2017-03-05] MEDS: MIDODRINE HCL 5 MG TABLET PO SCH ×3 (10:40→18:04)
[2017-03-05] MEDS ORDERED: HALOPERIDOL LACTATE INJ 5 MG/1 ML VIAL IM PRN (12:14)
[2017-03-05] MEDS: LACTULOSE SYRUP 20 GM/30 ML UDCUP PO SCH ×2 (15:50→18:02)
[2017-03-05] MEDS: DEXTROSE 5%-NORMAL SALINE 1,000 ML IV PRN (15:53)
[2017-03-06] MEDS: LACTULOSE SYRUP 20 GM/30 ML UDCUP PO SCH ×4 (01:04→17:01)
[2017-03-06] MEDS: PIPERACILLIN SODIUM/TAZOBACTAM 2.25 GM in NORMAL SALINE 50 ML IV SCH ×3 (02:57→17:02)
[2017-03-06] MEDS: LANSOPRAZOLE 30 MG TAB.RAP.DR PO SCH ×2 (06:35→16:50)
[2017-03-06 06:39] LABS: PROTHROMBIN TIME 24.2 SEC (11.4-15.4)
[2017-03-06] MEDS ORDERED: HALOPERIDOL LACTATE INJ 5 MG/1 ML VIAL IM PRN ×2 (09:59→12:00)
[2017-03-06] MEDS: BACITRACIN ZINC OINTMENT 15 GM TP SCH ×2 (10:00→17:02)
[2017-03-06] MEDS: MIDODRINE HCL 5 MG TABLET PO SCH ×3 (10:01→17:01)
[2017-03-06] MEDS: GABAPENTIN 300 MG CAPSULE PO SCH (10:02)
--- NOTE | 2017-03-06 10:03 | PDOC PROGRESS REPORT ---
Subjective Progress Note for:: 03/06/17 Subjective:: Patient reportedly still exhibits some restlessness but he reports it just feels uncomfortable in the bed. He is however more responsive and able to respond appropriately. No reported temperature spikes, nausea or vomiting, chills or fever nor diarrhea. Patient given as needed Haldol and last dose was yesterday. Physical Exam Vital Signs: Temp Pulse Resp BP Pulse Ox 97.6 F 81 19 111/67 100 03/06/17 08:00 03/06/17 08:00 03/06/17 08:00 03/06/17 08:00 03/06/17 08:00 Intake & Output 03/05/17 03/06/17 03/07/17 06:59 06:59 06:59 Intake Total 3285 2164 Output Total 2500 0 Balance 785 2164 Weight 131.1 kg 129.4 kg General appearance: PRESENT: no acute distress, morbidly obese Head exam: PRESENT: normocephalic Eye exam: PRESENT: conjunctiva pale Mouth exam: PRESENT: moist, neck supple Neck exam: ABSENT: JVD Respiratory exam: PRESENT: clear to auscultation jimbo Cardiovascular exam: PRESENT: RRR. ABSENT: gallop GI/Abdominal exam: PRESENT: soft. ABSENT: distended - Obese, tenderness Extremities exam: PRESENT: pedal edema - Mild bilateral Neurological exam: PRESENT: altered - But easily arousable and responds to questions appropriately Skin exam: PRESENT: dry, warm. ABSENT: cyanosis Results Laboratory Results: 03/05/17 04:21 03/05/17 04:21 Impressions: Chest X-Ray 03/03/17 15:13 IMPRESSION: Persistent left retrocardiac airspace disease with trace pleural effusion, similar compared to 02/19/[address] 03/03/17 15:13 IMPRESSION: NORMAL BRAIN CT WITHOUT CONTRAST. Assessment & Plan - Diagnosis (1) Altered mental status Qualifiers: Altered mental status type: unspecified Qualified Code(s): R41.82 - Altered mental status, unspecified Is this a current diagnosis for this admission?: Yes (2) Coagulopathy Is this a current diagnosis for this admission?: Yes (3) End-stage renal disease on hemodialysis Is this a current diagnosis for this admission?: Yes (4) Abnormal urinalysis Is this a current diagnosis for this admission?: Yes (5) Multiple open wounds Is this a current diagnosis for this admission?: Yes (6) Anemia of chronic disease Is this a current diagnosis for this admission?: Yes (7) Essential hypertension Is this a current diagnosis for this admission?: Yes (8) Type 2 diabetes mellitus Qualifiers: Diabetes mellitus complication status: with unspecified complications 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 insulin use: unspecified custodial insulin use status Qualified Code(s): E11.8 - Type 2 diabetes mellitus with unspecified complications Is this a current diagnosis for this admission?: Yes (9) Degenerative joint disease Qualifiers: Osteoarthritis location: unspecified site Osteoarthritis type: unspecified Qualified Code(s): M19.90 - Unspecified osteoarthritis, unspecified site Is this a current diagnosis for this admission?: Yes (10) Depression Qualifiers: Depression Type: unspecified Qualified Code(s): F32.9 - Major depressive disorder, single episode, unspecified Is this a current diagnosis for this admission?: Yes - Time Time Spent with patient: 25-34 minutes - Plan Summary Plan Summary: We will decrease the as needed Haldol. Patient's mental status improved. He is also starting to increase his oral intake. We will continue antibiotics for now. So far cultures has been negative. Once mental status improved more, likely can be transitioned to oral antibiotics. Continue supportive care.
[2017-03-06] MEDS: DOCUSATE SODIUM 100 MG CAPSULE PO SCH ×2 (10:06→17:01)
[2017-03-06] MEDS: DEXTROSE 5%-NORMAL SALINE 1,000 ML IV PRN (11:28)
[2017-03-07] MEDS: LACTULOSE SYRUP 20 GM/30 ML UDCUP PO SCH ×5 (00:03→21:04)
[2017-03-07] MEDS: PIPERACILLIN SODIUM/TAZOBACTAM 2.25 GM in NORMAL SALINE 50 ML IV SCH ×3 (03:10→18:38)
[2017-03-07] MEDS: LANSOPRAZOLE 30 MG TAB.RAP.DR PO SCH ×2 (06:11→18:36)
[2017-03-07 08:56] LABS: HEMATOCRIT 28.3 % (37.9-51.0); HEMOGLOBIN 9.2 g/dL (13.5-17.0); HGB HCT DIFFERENCE -0.7; MEAN CORPUSCULAR HGB CONC 32.3 g/dL (32.0-36.0); MEAN CORPUSCULAR VOLUME 102 fl (80-97); RED BLOOD COUNT 2.77 10^6/uL (4.35-5.55); RED CELL DISTRIBUTION WIDTH 18.4 % (11.5-14.0); WHITE BLOOD COUNT 5.9 10^3/uL (4.0-10.5)
--- NOTE | 2017-03-07 08:56 | Physician Advisory Note ---
Physician Advisor ProgressNote .: Pursuant to the plan for Yevgeniy Arauz, I have reviewed the medical record for this patient. Physician Advisor Statement: Please consider documentin. "AMS - most likely due to " 2. "Anemia of chronic kidney dz" 3. "obesity with BMI 40" 4. "chronic CHF, suspect ___ type" (syst? diast? ) - coders need both chronic/acute and syst/diast specified. 5. "acute hyponatremia, suspect due to " 6. What is the dx for which lactulose is being given - is "cirrhosis, possibly due to ___, with mildly elevated LFTs" suspected? 7. MEDICAL NECESSITY - please document explicitly why pt couldn't just go home 03/04 PM - Level of mental status not back to baseline? Episodes hypotension which is worrisome for tolerating HD? "Attending concerned about ____"? Not yet alert enough to eat on 03/04? Needing frequent prn Haldol? ... Status: Medicare patient with AMS - should typically come in as Obs to start, then be changed to Inpt the next day after not improving sufficiently for d/c after 1 MN of care. This patient came in with Inpatient order, was changed to Obs after 1MN because should have been Obs initially per [facility], but then had issues with hypoglycemia (while NPO), hypotension making hemodialysis more risky (while NPO , hypotension also concerning given acute infection, could potentially indicate sepsis developing), needing IVF to support BP though needing care with amount IVF given underlying chronic ___ type CHF. Still needing prn Haldol & IVF (at decreased dose, while starting po intake) after 2MNs of hospital care. Still with AMS, though better and starting to take improved po intake, after 3 MNs of hospital care. Appropriate for Inpt status as of 03/04 PM, as also determined by [employer] on their review 03/05 AM. THanks! CK
[2017-03-07 09:20] LABS: ANION GAP 17 (5-19); BLOOD UREA NITROGEN 49 mg/dL (7-20); CARBON DIOXIDE 21 mmol/L (22-30); CHLORIDE 103 mmol/L (98-107); CREATININE RESULT 8.73 mg/dL (0.52-1.25); GLUCOSE 118 mg/dL (75-110); SODIUM 141.3 mmol/L (137-145)
[2017-03-07] MEDS ORDERED: ONDANSETRON HCL INJ/PF 4 MG/2 ML SDV IV PRN (09:30)
[2017-03-07] MEDS ORDERED: EPOETIN ALFA 10,000 UNIT in SYRINGE, DISPOSABLE, 1 EACH IV ONE (11:30)
--- NOTE | 2017-03-07 11:30 | PDOC PROGRESS REPORT ---
Subjective Progress Note for:: 03/07/17 Subjective:: Mental status continues to improve. No reported temperature spikes, respiratory distress, diarrhea, nor aggressive behavior. Patient reports being uncomfortable in bed and has not sleep for a few days. No Haldol given recently so far. Physical Exam Vital Signs: Temp Pulse Resp BP Pulse Ox 97.5 F 82 16 90/69 L 100 03/07/17 07:35 03/07/17 07:35 03/07/17 07:35 03/07/17 07:35 03/07/17 07:35 Intake & Output 03/06/17 03/07/17 03/08/17 06:59 06:59 06:59 Intake Total 2163 2088 Output Total 0 0 Balance 2163 2088 Weight 129.4 kg 126.2 kg General appearance: PRESENT: no acute distress, morbidly obese Head exam: PRESENT: normocephalic Eye exam: PRESENT: EOMI Mouth exam: PRESENT: moist, neck supple Neck exam: ABSENT: JVD Respiratory exam: PRESENT: clear to auscultation jimbo. ABSENT: rhonchi, wheezes Cardiovascular exam: PRESENT: RRR. ABSENT: gallop GI/Abdominal exam: PRESENT: soft. ABSENT: distended, tenderness Extremities exam: PRESENT: other - Trace lower extremity edema Neurological exam: PRESENT: alert, awake Skin exam: PRESENT: dry, warm, other - Wounds without any foul-smelling drainage. The erythema and redness on the right leg improved.. ABSENT: cyanosis Results Laboratory Results: 03/07/17 08:00 03/07/17 08:00 03/07/17 03/07/17 08:00 08:00 WBC 5.9 RBC 2.77 L Hgb 9.2 L Hct 28.3 L MCV 102 H MCH 33.0 MCHC 32.3 RDW 18.4 H Plt Count 87 L Sodium 141.3 Potassium 4.0 Chloride 103 Carbon Dioxide 21 L Anion Gap 17 BUN 49 H Creatinine 8.73 H Est GFR ( Amer) 8 L Est GFR (Non-Af Amer) 6 L Glucose 118 H Calcium 8.0 L Impressions: Chest X-Ray 03/03/17 15:13 IMPRESSION: Persistent left retrocardiac airspace disease with trace pleural effusion, similar compared to 02/19/[address] 03/03/17 15:13 IMPRESSION: NORMAL BRAIN CT WITHOUT CONTRAST. Assessment & Plan - Diagnosis (1) Altered mental status Qualifiers: Altered mental status type: unspecified Qualified Code(s): R41.82 - Altered mental status, unspecified Is this a current diagnosis for this admission?: Yes (2) Coagulopathy Is this a current diagnosis for this admission?: Yes (3) Cellulitis of right lower extremity Is this a current diagnosis for this admission?: Yes (4) End-stage renal disease on hemodialysis Is this a current diagnosis for this admission?: Yes (5) Abnormal urinalysis Is this a current diagnosis for this admission?: Yes (6) Multiple open wounds Is this a current diagnosis for this admission?: Yes (7) Anemia of chronic disease Is this a current diagnosis for this admission?: Yes (8) Essential hypertension Is this a current diagnosis for this admission?: Yes (9) Type 2 diabetes mellitus Qualifiers: Diabetes mellitus complication status: with unspecified complications 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 mellitus credit control administrator insulin use: unspecified assisted insulin use status Qualified Code(s): E11.8 - Type 2 diabetes mellitus with unspecified complications Is this a current diagnosis for this admission?: Yes (10) Degenerative joint disease Qualifiers: Osteoarthritis location: unspecified site Osteoarthritis type: unspecified Qualified Code(s): M19.90 - Unspecified osteoarthritis, unspecified site Is this a current diagnosis for this admission?: Yes (11) Depression Qualifiers: Depression Type: unspecified Qualified Code(s): F32.9 - Major depressive disorder, single episode, unspecified Is this a current diagnosis for this admission?: Yes - Time Time Spent with patient: 25-34 minutes - Plan Summary Plan Summary: Patient did show clinical improvement after antibiotics. Patient's alteration in mental status could be a combination of medications including anesthetic and infection. We will continue current antibiotics, continued hemodialysis per nephrology. Begin physical therapy. Continue supportive care. We will resume the patient's warfarin but at a lower dose..
[2017-03-07] MEDS: DOCUSATE SODIUM 100 MG CAPSULE PO SCH ×2 (12:55→18:48)
[2017-03-07] MEDS: MIDODRINE HCL 5 MG TABLET PO SCH ×3 (12:55→18:36)
[2017-03-07] MEDS: BACITRACIN ZINC OINTMENT 15 GM TP SCH ×2 (14:05→18:48)
[2017-03-07] MEDS: GABAPENTIN 300 MG CAPSULE PO SCH (14:06)
--- NOTE | 2017-03-07 16:48 | PDOC PROGRESS REPORT ---
Subjective Progress Note for:: 03/07/17 Subjective:: Patient seen on dialysis today. He is undergoing dialysis without any issues. Patient is more awake and responsive. He was able to recognize me and remember my name. He denies chest pain shortness of breath. Physical Exam Vital Signs: Temp Pulse Resp BP Pulse Ox 98.2 F 81 18 91/63 L 100 03/07/17 15:16 03/07/17 15:16 03/07/17 15:16 03/07/17 15:16 03/07/17 15:16 General appearance: PRESENT: no acute distress Respiratory exam: PRESENT: clear to auscultation jibmo. ABSENT: crackles, rhonchi Cardiovascular exam: PRESENT: +S1, +S2, systolic murmur GI/Abdominal exam: PRESENT: normal bowel sounds, soft. ABSENT: organomegaly, tenderness Extremities exam: ABSENT: pedal edema Neurological exam: PRESENT: awake, oriented to person Results Impressions: Chest X-Ray 03/03/17 15:13 IMPRESSION: Persistent left retrocardiac airspace disease with trace pleural effusion, similar compared to 02/19/[address] 03/03/17 15:13 IMPRESSION: NORMAL BRAIN CT WITHOUT CONTRAST. Assessment & Plan - Diagnosis (1) End-stage renal disease on hemodialysis Is this a current diagnosis for this admission?: Yes Plan: Patient was seen on dialysis. He is undergoing dialysis without any issues. Is being supervised to ensure a safe and smooth procedure. Hemodynamically stable but for slightly low blood pressure. Will increase the Midodrin to 5 mg 3 times daily. (2) UTI (urinary tract infection) Plan: On antibiotics. Culture-negative (3) Anemia in chronic kidney disease Plan: Adjust erythropoietin. (4) Altered mental status Qualifiers: Altered mental status type: unspecified Qualified Code(s): R41.82 - Altered mental status, unspecified Is this a current diagnosis for this admission?: Yes Plan: Improving as compared to when I saw him last week. (5) Hypotension Plan: Increase dosage on Midodrin with hold orders if above 130 systolic.
[2017-03-07] MEDS ORDERED: VANCOMYCIN HCL 750 MG in DEXTROSE 5%-WATER 250 ML IV SCH (18:00)
[2017-03-07] MEDS: DEXTROSE 5%-NORMAL SALINE 1,000 ML IV PRN (19:13)
[2017-03-07] MEDS: WARFARIN SODIUM 2 MG TABLET PO SCH (21:01)
[2017-03-08] MEDS: PIPERACILLIN SODIUM/TAZOBACTAM 2.25 GM in NORMAL SALINE 50 ML IV SCH ×3 (01:24→17:37)
[2017-03-08] MEDS: LACTULOSE SYRUP 20 GM/30 ML UDCUP PO SCH ×4 (04:49→23:47)
[2017-03-08] MEDS: LANSOPRAZOLE 30 MG TAB.RAP.DR PO SCH ×2 (05:11→17:35)
[2017-03-08 06:54] LABS: PROTHROMBIN TIME 20.2 SEC (11.4-15.4)
[2017-03-08] MEDS: DOCUSATE SODIUM 100 MG CAPSULE PO SCH ×2 (09:58→17:35)
[2017-03-08] MEDS: GABAPENTIN 300 MG CAPSULE PO SCH (09:59)
[2017-03-08] MEDS: BACITRACIN ZINC OINTMENT 15 GM TP SCH ×2 (10:00→17:39)
[2017-03-08] MEDS: MIDODRINE HCL 5 MG TABLET PO SCH ×3 (10:02→17:36)
--- NOTE | 2017-03-08 13:25 | PDOC PROGRESS REPORT ---
Subjective Progress Note for:: 03/08/17 Subjective:: Patient denies any complaints. He is somewhat confused. Physical Exam Vital Signs: Temp Pulse Resp BP Pulse Ox 97.0 F 78 17 112/59 L 93 03/08/17 11:05 03/08/17 11:05 03/08/17 11:05 03/08/17 11:05 03/08/17 11:05 Intake & Output 03/07/17 03/08/17 03/09/17 06:59 06:59 06:59 Intake Total 1410 900 Output Total 150 0 Balance 1260 900 Weight 126.2 kg 126.2 kg General appearance: PRESENT: no acute distress Eye exam: PRESENT: conjunctiva pink. ABSENT: scleral icterus Mouth exam: PRESENT: moist, tongue midline Neck exam: ABSENT: JVD Respiratory exam: PRESENT: clear to auscultation jimbo. ABSENT: rales, rhonchi, wheezes Cardiovascular exam: PRESENT: RRR. ABSENT: diastolic murmur, rubs, systolic murmur GI/Abdominal exam: PRESENT: normal bowel sounds, soft. ABSENT: distended, guarding, mass, organolmegaly, rebound, tenderness Extremities exam: ABSENT: calf tenderness, clubbing, pedal edema Neurological exam: PRESENT: alert, awake, oriented to person, oriented to place , CN II-XII grossly intact. ABSENT: oriented to time, oriented to situation, motor sensory deficit Psychiatric exam: PRESENT: flat affect Skin exam: PRESENT: other - Mild erythema on the right leg. Results Impressions: Chest X-Ray 03/03/17 15:13 IMPRESSION: Persistent left retrocardiac airspace disease with trace pleural effusion, similar compared to 02/19/[address] 03/03/17 15:13 IMPRESSION: NORMAL BRAIN CT WITHOUT CONTRAST. Assessment & Plan - Diagnosis (1) Cellulitis of right lower extremity Is this a current diagnosis for this admission?: Yes Plan: Patient is improving with Zosyn. Cultures so far are negative. (2) Altered mental status Qualifiers: Altered mental status type: unspecified Qualified Code(s): R41.82 - Altered mental status, unspecified Is this a current diagnosis for this admission?: Yes Plan: Most likely secondary to underlying infection. We will continue to monitor. (3) Abnormal urinalysis Is this a current diagnosis for this admission?: Yes Plan: Patient may have urinary tract infection. Should have adequate coverage with the Zosyn. (4) Anemia in chronic kidney disease Is this a current diagnosis for this admission?: Yes (5) Essential hypertension Is this a current diagnosis for this admission?: Yes Plan: Blood pressure is stable. (6) Multiple open wounds Is this a current diagnosis for this admission?: Yes Plan: Patient is getting local wound care along with the IV Zosyn. 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 - Time Time Spent with patient: 25-34 minutes - Inpatient Certification Medical Necessity: Need for IV Antibiotics
--- NOTE | 2017-03-08 16:14 | PDOC PROGRESS REPORT ---
Subjective Progress Note for:: 03/08/17 Subjective:: Patient was doing well sitting up in the chair in his room. He was awake, alert and oriented x3. He stated that he was feeling better and knew where he was now. He as no complaints of chest pain, heart palpitations or SOB. No complaints of UTI symptoms. Physical Exam Vital Signs: Temp Pulse Resp BP Pulse Ox 97.0 F 80 17 112/59 L 93 03/08/17 11:05 03/08/17 14:00 03/08/17 11:05 03/08/17 11:05 03/08/17 11:05 Intake & Output 03/07/17 03/08/17 03/09/17 06:59 06:59 06:59 Intake Total 1410 900 Output Total 150 0 Balance 1260 900 Weight 126.2 kg 126.2 kg General appearance: PRESENT: no acute distress, morbidly obese, well-developed, well-nourished Head exam: PRESENT: atraumatic, normocephalic Mouth exam: PRESENT: moist, neck supple Neck exam: PRESENT: full ROM. ABSENT: JVD, thyromegaly Respiratory exam: PRESENT: clear to auscultation jimbo. ABSENT: accessory muscle use, chest wall tenderness Cardiovascular exam: PRESENT: +S1, +S2, systolic murmur GI/Abdominal exam: PRESENT: normal bowel sounds, soft. ABSENT: organomegaly, tenderness Extremities exam: PRESENT: tenderness, +1 edema. ABSENT: joint swelling Musculoskeletal exam: PRESENT: tenderness. ABSENT: deformity Neurological exam: PRESENT: alert, awake, oriented to person, oriented to place , oriented to time Psychiatric exam: PRESENT: appropriate affect, normal mood Skin exam: PRESENT: erythema - lower legs, rash. ABSENT: normal color Results Impressions: Chest X-Ray 03/03/17 15:13 IMPRESSION: Persistent left retrocardiac airspace disease with trace pleural effusion, similar compared to 02/19/[address] 03/03/17 15:13 IMPRESSION: NORMAL BRAIN CT WITHOUT CONTRAST. Assessment & Plan - Diagnosis (1) Altered mental status Qualifiers: Altered mental status type: unspecified Qualified Code(s): R41.82 - Altered mental status, unspecified Is this a current diagnosis for this admission?: Yes Plan: great improvement since I last saw him on tuesday. Looks to be resolved (2) Anemia in chronic kidney disease Is this a current diagnosis for this admission?: Yes Plan: will adjust epogen according to hemoglobin levels (3) End-stage renal disease on hemodialysis Is this a current diagnosis for this admission?: Yes Plan: Will be run on dialysis tomorrow if he remains here in the morning. If discharged before that will run him as outpatient (4) Hypotension Plan: improved since increase of midodrine. Looks to have bps in the 110s systolic (5) UTI (urinary tract infection) Plan: on antibiotics and looks to be resolving. No s/s of uti and culture was negative.
[2017-03-08] MEDS: DEXTROSE 5%-NORMAL SALINE 1,000 ML IV PRN (16:22)
[2017-03-08] MEDS ORDERED: EPOETIN ALFA 10,000 UNIT in SYRINGE, DISPOSABLE, 1 EACH IV PRN (16:37)
[2017-03-08 16:46] LABS: HEMOGLOBIN 9.6 g/dL (13.5-17.0); HGB HCT DIFFERENCE -1.2; MEAN CORPUSCULAR HEMOGLOBIN 32.9 pg (27.0-33.4); MEAN CORPUSCULAR HGB CONC 31.9 g/dL (32.0-36.0); MEAN CORPUSCULAR VOLUME 103 fl (80-97); RED BLOOD COUNT 2.91 10^6/uL (4.35-5.55); RED CELL DISTRIBUTION WIDTH 18.8 % (11.5-14.0); WHITE BLOOD COUNT 4.9 10^3/uL (4.0-10.5)
[2017-03-08] MEDS: WARFARIN SODIUM 2 MG TABLET PO SCH (22:02)
[2017-03-09] MEDS: PIPERACILLIN SODIUM/TAZOBACTAM 2.25 GM in NORMAL SALINE 50 ML IV SCH ×2 (01:58→12:53)
[2017-03-09] MEDS ORDERED: EPOETIN ALFA INJ 20000 UNIT/1 ML VIAL (RENAL) IV PRN (05:00)
[2017-03-09] MEDS ORDERED: EPOETIN ALFA 10,000 UNIT in SYRINGE, DISPOSABLE, 1 EACH IV PRN (05:00)
[2017-03-09] MEDS: LANSOPRAZOLE 30 MG TAB.RAP.DR PO SCH (05:01)
[2017-03-09] MEDS: LACTULOSE SYRUP 20 GM/30 ML UDCUP PO SCH ×2 (05:04→12:50)
[2017-03-09 05:06] LABS: PROTHROMBIN TIME 19.6 SEC (11.4-15.4)
[2017-03-09 05:23] LABS: ANION GAP 17 (5-19); BLOOD UREA NITROGEN 42 mg/dL (7-20); CALCIUM 8.1 mg/dL (8.4-10.2); CARBON DIOXIDE 22 mmol/L (22-30); CHLORIDE 103 mmol/L (98-107); CREATININE RESULT 7.94 mg/dL (0.52-1.25); GLUCOSE 89 mg/dL (75-110); HEMATOCRIT 29.4 % (37.9-51.0); HEMOGLOBIN 9.6 g/dL (13.5-17.0); HGB HCT DIFFERENCE -0.6; MEAN CORPUSCULAR HEMOGLOBIN 33.3 pg (27.0-33.4); MEAN CORPUSCULAR HGB CONC 32.5 g/dL (32.0-36.0); MEAN CORPUSCULAR VOLUME 103 fl (80-97); RED BLOOD COUNT 2.87 10^6/uL (4.35-5.55); RED CELL DISTRIBUTION WIDTH 18.1 % (11.5-14.0); SODIUM 141.9 mmol/L (137-145); WHITE BLOOD COUNT 5.1 10^3/uL (4.0-10.5)
[2017-03-09] MEDS ORDERED: WARFARIN SODIUM 2 MG TABLET PO SCH (07:34)
[2017-03-09] MEDS: MIDODRINE HCL 5 MG TABLET PO SCH (07:39)
[2017-03-09] MEDS ORDERED: DEXTROSE 50%-WATER 25 GM/50 ML DISP.SYRIN IV ONE (08:00)
[2017-03-09 08:40] VITALS: BP 102/55
[2017-03-09] MEDS: DEXTROSE 50%-WATER 25 GM/50 ML DISP.SYRIN IV PRN (10:02)
[2017-03-09] MEDS: GABAPENTIN 300 MG CAPSULE PO SCH (12:50)
[2017-03-09] MEDS: DOCUSATE SODIUM 100 MG CAPSULE PO SCH (12:51)
[2017-03-09] MEDS: BACITRACIN ZINC OINTMENT 15 GM TP SCH (12:51)
--- NOTE | 2017-03-09 13:56 | PDOC DISCHARGE SUMMARY ---
General - Admit/Disc Date/PCP Admission Date/Primary Care Provider: 03/07/17 11:41 JOSE CEDEÑO MD Discharge Date: 03/09/17 - Discharge Diagnosis (1) Cellulitis of right lower extremity Is this a current diagnosis for this admission?: Yes Summary: Negative cultures. Patient is being sent home on 7 days of Augmentin. (2) Altered mental status Is this a current diagnosis for this admission?: Yes Summary: Most likely secondary to the underlying infection. This has resolved. (3) Abnormal urinalysis Is this a current diagnosis for this admission?: Yes (4) Anemia in chronic kidney disease Is this a current diagnosis for this admission?: Yes (5) Essential hypertension Is this a current diagnosis for this admission?: Yes (6) Multiple open wounds Is this a current diagnosis for this admission?: Yes (7) Type 2 diabetes mellitus Is this a current diagnosis for this admission?: Yes (8) Coagulopathy Is this a current diagnosis for this admission?: Yes - Additional Information Resuscitation Status: Full Code Discharge Diet: Cardiac, Diabetic Discharge Activity: Activity As Tolerated Home Medications: Gabapentin [Neurontin 300 mg Capsule] 600 mg PO DAILY 03/03/17 Sevelamer Carbonate [Renvela] 800 mg PO Q8 03/03/17 Venlafaxine HCl ER [Effexor Xr 37.5 mg Cap.sr] 37.5 mg PO DAILY 03/03/17 Warfarin Sodium [Coumadin 5 mg Tablet] 5 mg PO DAILY 03/03/17 Amoxicillin/Potassium Clav [Augmentin 500-125 Tablet] 1 each PO BID #14 tablet 03/09/17 Midodrine HCl [Proamatine 5 mg Tablet] 10 mg PO TID #90 tablet 03/09/17 History of Present Illness History of Present Illness: HELIO HANKINS is a 61 year old male who has end-stage renal disease and had recently had an AV fistula on his left arm. The patient was at dialysis on the day of admission and became confused was brought to the emergency room for evaluation. The patient had no evidence for fever but did have some acidosis. Patient had cellulitis of the right leg and heel and is admitted for treatment of cellulitis. The patient has a prior history of having Pseudomonas urinary tract infections. Patient because he was confused was unable to give any further history. Hospital Course Hospital Course: 61-year-old gentleman who is a dialysis patient who presented with confusion. The patient was found to have cellulitis of the right leg. Patient was started on empiric antibiotics and his mental status improved. Patient had cultures drawn they were all negative. The patient's cellulitis improved with treatment with Zosyn and was felt that he could complete 7 additional days of Augmentin as an outpatient. While hospitalized the patient was seen by nephrology and they did perform dialysis. The day of discharge he was noted to have a small amount of purulent discharge from his left AV fistula. The patient will be discharged and follow-up with dialysis tomorrow. Nephrology has made the decision to dialyze him every day for this week. The patient's confusion may have also been related to his uremia. The shortness other medical problems were stable during this hospitalization. Physical Exam Vital Signs: Temp Pulse Resp BP Pulse Ox 98.1 F 81 16 102/55 L 99 03/09/17 08:00 03/09/17 08:00 03/09/17 08:00 03/09/17 08:00 03/09/17 08:00 Intake & Output 03/08/17 03/09/17 03/10/17 06:59 06:59 06:59 Intake Total 1410 2227 Output Total 150 0 4800 Balance 1260 2227 -4800 Weight 126.2 kg 126.2 kg General appearance: PRESENT: no acute distress Eye exam: PRESENT: conjunctiva pink. ABSENT: scleral icterus Neck exam: ABSENT: JVD Respiratory exam: PRESENT: clear to auscultation jimbo. ABSENT: rales, rhonchi, wheezes Cardiovascular exam: PRESENT: RRR. ABSENT: diastolic murmur, rubs, systolic murmur GI/Abdominal exam: PRESENT: normal bowel sounds, soft. ABSENT: distended, guarding, mass, organolmegaly, rebound, tenderness Extremities exam: ABSENT: calf tenderness, clubbing, pedal edema Neurological exam: PRESENT: alert, awake, oriented to person, oriented to place , oriented to time, oriented to situation, CN II-XII grossly intact. ABSENT: motor sensory deficit Psychiatric exam: PRESENT: appropriate affect Skin exam: PRESENT: other - Patient has some mild erythema around his left forearm AV fistula. Results Laboratory Results: 03/09/17 04:49 03/09/17 04:49 03/08/17 03/08/17 03/09/17 05:42 20:30 04:49 WBC 4.9 RBC 2.91 L Hgb 9.6 L Hct 30.0 L MCV 103 H MCH 32.9 MCHC 31.9 L RDW 18.8 H Plt Count 86 L Sodium 141.9 Potassium 4.0 Chloride 103 Carbon Dioxide 22 Anion Gap 17 BUN 42 H Creatinine 7.94 H Est GFR ( Amer) 8 L Est GFR (Non-Af Amer) 7 L Glucose 89 Calcium 8.1 L Stool Occult Blood POSITIVE 03/09/17 04:49 WBC 5.1 RBC 2.87 L Hgb 9.6 L Hct 29.4 L MCV 103 H MCH 33.3 MCHC 32.5 RDW 18.1 H Plt Count 79 L Sodium Potassium Chloride Carbon Dioxide Anion Gap BUN Creatinine Est GFR ( Amer) Est GFR (Non-Af Amer) Glucose Calcium Stool Occult Blood Impressions: Chest X-Ray 03/03/17 15:13 IMPRESSION: Persistent left retrocardiac airspace disease with trace pleural effusion, similar compared to 02/19/[address] 03/03/17 15:13 IMPRESSION: NORMAL BRAIN CT WITHOUT CONTRAST. Qualifiers PATEINT BEING DISCHARGED WITH ANY OF THE FOLLOWING DIAGNOSIS?: No Plan Discharge Plan: Patient will follow up with dialysis tomorrow. Follow with primary care in 2 weeks. Time Spent: Greater than 30 Minutes
[2017-03-09] MEDS ORDERED: MIDODRINE HCL 5 MG TABLET PO SCH (14:00)
[2017-03-09] MEDS ORDERED: FUROSEMIDE INJ/PF 20 MG/2 ML SDV IV SCH (14:00)
--- NOTE | 2017-03-09 16:35 | PDOC PROGRESS REPORT ---
Subjective Progress Note for:: 03/09/17 Subjective:: Patient seen on dialysis today. He is undergoing dialysis without any issues. Patient is more awake and responsive.His leg infectios are healing.Still has lots of edema. He denies chest pain shortness of breath. Physical Exam Vital Signs: Temp Pulse Resp BP Pulse Ox 98.1 F 81 16 102/55 L 99 03/09/17 15:05 03/09/17 15:05 03/09/17 15:05 03/09/17 15:05 03/09/17 15:05 Intake & Output 03/08/17 03/09/17 03/10/17 06:59 06:59 06:59 Intake Total 1410 2227 Output Total 150 0 4800 Balance 1260 2227 -4800 Weight 126.2 kg 126.2 kg General appearance: PRESENT: no acute distress Respiratory exam: PRESENT: clear to auscultation jimbo. ABSENT: crackles, rhonchi Cardiovascular exam: PRESENT: +S1, +S2, systolic murmur GI/Abdominal exam: PRESENT: normal bowel sounds, soft. ABSENT: organomegaly, tenderness Extremities exam: PRESENT: +1 edema Neurological exam: PRESENT: awake, oriented to person, oriented to place Results Laboratory Results: 03/09/17 04:49 03/09/17 04:49 03/08/17 03/08/17 03/09/17 05:42 20:30 04:49 WBC 4.9 RBC 2.91 L Hgb 9.6 L Hct 30.0 L MCV 103 H MCH 32.9 MCHC 31.9 L RDW 18.8 H Plt Count 86 L Sodium 141.9 Potassium 4.0 Chloride 103 Carbon Dioxide 22 Anion Gap 17 BUN 42 H Creatinine 7.94 H Est GFR ( Amer) 8 L Est GFR (Non-Af Amer) 7 L Glucose 89 Calcium 8.1 L Stool Occult Blood POSITIVE 03/09/17 04:49 WBC 5.1 RBC 2.87 L Hgb 9.6 L Hct 29.4 L MCV 103 H MCH 33.3 MCHC 32.5 RDW 18.1 H Plt Count 79 L Sodium Potassium Chloride Carbon Dioxide Anion Gap BUN Creatinine Est GFR ( Amer) Est GFR (Non-Af Amer) Glucose Calcium Stool Occult Blood Impressions: Chest X-Ray 03/03/17 15:13 IMPRESSION: Persistent left retrocardiac airspace disease with trace pleural effusion, similar compared to 02/19/[address] 03/03/17 15:13 IMPRESSION: NORMAL BRAIN CT WITHOUT CONTRAST. Assessment & Plan - Diagnosis (1) End-stage renal disease on hemodialysis Is this a current diagnosis for this admission?: Yes Plan: Patient was seen on dialysis. He is undergoing dialysis without any issues. Is being supervised to ensure a safe and smooth procedure. Hemodynamically stable but for slightly low blood pressure. Will increase the Midodrin to 10 mg 3 times daily.Plan to UF x 4-5 l as tolerated. Discussed with quantitative analyst.Plan to do daily HD x 1 week on dc to ensure getting him down to appropriate base weight and removal of fluids. (2) UTI (urinary tract infection) Plan: On antibiotics. Culture-negative (3) Anemia in chronic kidney disease Is this a current diagnosis for this admission?: Yes Plan: Adjust erythropoietin. (4) Altered mental status Qualifiers: Altered mental status type: unspecified Qualified Code(s): R41.82 - Altered mental status, unspecified Is this a current diagnosis for this admission?: Yes Plan: Improved lots. (5) Hypotension Plan: Increase dosage on Midodrin to 10 mg with hold orders if above 130 systolic. (6) Multiple open wounds Is this a current diagnosis for this admission?: Yes Plan: on both lower extremities with 1 + edema. On antibiotics and doing well. Start Lasix.
[2017-03-09] MEDS ORDERED: WARFARIN SODIUM 5 MG TABLET PO SCH (22:00)
== END 2017-03-09 17:15 | disposition home health service (06) | DRG 602 ==
LOC: ER 14:58 → EH 17:52 → UNDOADMIN 17:52 → INTOOBSV 18:25 → EH 18:25 → 4N 19:10 → OBSVTOIN 03-07 11:41
PROC: 5A1D60Z (ICD-10-PCS; principal; 2017-03-09)
DX: L03.115 Cellulitis of right lower limb (principal); N18.6 End stage renal disease; I12.0 Hypertensive chronic kidney disease with stage 5 chronic kidney disease or end stage renal disease; L97.412 Non-pressure chronic ulcer of right heel and midfoot with fat layer exposed; E87.2 Acidosis; E11.621 Type 2 diabetes mellitus with foot ulcer; E11.22 Type 2 diabetes mellitus with diabetic chronic kidney disease; E03.9 Hypothyroidism, unspecified; R79.1 Abnormal coagulation profile; D63.1 Anemia in chronic kidney disease; I95.89 Other hypotension; I50.9 Heart failure, unspecified; K59.00 Constipation, unspecified; M19.90 Unspecified osteoarthritis, unspecified site; F32.9 Major depressive disorder, single episode, unspecified; E11.649 Type 2 diabetes mellitus with hypoglycemia without coma; E66.9 Obesity, unspecified; R82.99 Other abnormal findings in urine; N25.0 Renal osteodystrophy; R41.82 Altered mental status, unspecified; Z90.49 Acquired absence of other specified parts of digestive tract; Z99.2 Dependence on renal dialysis; Z91.15 Patient's noncompliance with renal dialysis; I25.2 Old myocardial infarction; Z88.8 Allergy status to other drugs, medicaments and biological substances; Z82.49 Family history of ischemic heart disease and other diseases of the circulatory system; Z83.3 Family history of diabetes mellitus; Z68.39 Body mass index [BMI] 39.0-39.9, adult
CPT/HCPCS: 36415; 70450; 71010; 80048; 80053; 80307; 81001; 82140; 82272; 82550; 82803; 82962; 83605; 83690; 83880; 84439; 84443; 84484; 85025; 85027; 85610; 85730; 87040; 87070; 87086; 87205; 87493; 93005; 93010; 96365; 96375; 99285; G0378; G8978-GP; G8979-GP; J1630; J1815; J2060; J2310; J2543; J3370; J3490; J7030; J7060; Q4081

== ENCOUNTER 2017-04-02 06:10 | Emergency (ER) | payer MEDICARE ==
[2017-04-02 06:20] VITALS: BP 130/60
[2017-04-02] MEDS ORDERED: LIDOCAINE 2% URO-JET 5 ML KIT MM ONE ×2 (06:41)
[2017-04-02] MEDS ORDERED: FLUCONAZOLE 100 MG TABLET PO ONE (06:42)
--- NOTE | 2017-04-02 06:46 | ER Document Report ---
ED General - General Chief Complaint: Penile Pain Stated Complaint: PAINFUL URINATION Time Seen by Provider: 04/02/17 06:40 TRAVEL OUTSIDE OF THE [place] IN LAST 30 DAYS: No - HPI Patient complains to provider of: Penile burning Notes: Patient coming in for complaint ofBurning of the tip of his penis. States this is been ongoing for the last 2 days. Patient states not currently sexually active last time he had intercourse was over a year ago. Patient is dialysis patient and otherwise is anruic states he only makes a little bit of Urine whenever he defecates or when he strains No difficulty urinating are dysuria. Patient denies fevers chills nausea vomiting states his dialysis is scheduled for 10:00 today. Denies any shortness of breath or difficulty breathing - Related Data Allergies/Adverse Reactions: heparin Allergy (Verified 02/19/17 00:24) enoxaparin [From Lovenox] Adverse Reaction (Verified 03/03/17 16:26) Past Medical History - Social History Smoking Status: Unknown if Ever Smoked Family History: CAD, DM - Past Medical History Cardiac Medical History: Reports: Hx Congestive Heart Failure, Hx Heart Attack, Hx Hypertension Endocrine Medical History: Reports: Hx Diabetes Mellitus Type 2 Renal/ Medical History: Reports: Hx End Stage Renal Disease. Denies: Hx Peritoneal Dialysis Musculoskeltal Medical History: Reports Hx Arthritis, Reports Hx Musculoskeletal Deformity, Reports Hx Musculoskeletal Trauma Psychiatric Medical History: Reports: Hx Depression Past Surgical History: Reports: Hx Appendectomy, Hx Cardiac Catheterization, Hx Cardiac Surgery - triple bypass, Hx Orthopedic Surgery - right knee replacement , Hx Rectal Surgery - abscess years ago, Other - Recent AV graft placementComment Only: Hx Abdominal Surgery - current hernia - Immunizations Immunizations up to date: Yes Hx Diphtheria, Pertussis, Tetanus Vaccination: Yes Hx Pneumococcal Vaccination: 05/23/13 Review of Systems - Review of Systems Constitutional: No symptoms reported EENT: No symptoms reported Cardiovascular: No symptoms reported Respiratory: No symptoms reported Gastrointestinal: No symptoms reported Genitourinary: Other - Penile irritation Male Genitourinary: No symptoms reported Musculoskeletal: No symptoms reported Skin: No symptoms reported Hematologic/Lymphatic: No symptoms reported Neurological/Psychological: No symptoms reported Physical Exam - Vital signs Vitals: Temp Pulse Resp BP Pulse Ox 97.8 F 83 18 130/60 H 99 04/02/17 06:17 04/02/17 06:17 04/02/17 06:17 04/02/17 06:17 04/02/17 06:17 Interpretation: Normal - General General appearance: Appears well, Alert - HEENT Head: Normocephalic, Atraumatic Eyes: Normal Pupils: PERRL - Respiratory Respiratory status: No respiratory distress Chest status: Nontender Breath sounds: Normal Chest palpation: Normal - Cardiovascular Rhythm: Regular Heart sounds: Normal auscultation Murmur: No - Abdominal Inspection: Normal Distension: No distension Bowel sounds: Normal Tenderness: Nontender Organomegaly: No organomegaly - Genitourinary Notes: Patient is uncircumcised foreskin is retracted over the glans there is white discharge with red beefy skin slight swelling looks consistent with balantis. No signs of vesicles consistent with a viral infection noted penile discharge shaft of the penis is otherwise normal no phimosis or paraphimosis - Back Back: Normal, Nontender - Extremities General upper extremity: Normal inspection, Nontender, Normal color, Normal ROM , Normal temperature General lower extremity: Normal inspection, Nontender, Normal color, Normal ROM , Normal temperature, Normal weight bearing. No: Humberto's sign - Neurological Neuro grossly intact: Yes Cognition: Normal Orientation: AAOx4 [place] Coma Scale Eye Opening: Spontaneous [place] Coma Scale Verbal: Oriented Jairon Coma Scale Motor: Obeys Commands [place] Coma Scale Total: 15 Speech: Normal Motor strength normal: LUE, RUE, LLE, RLE Sensory: Normal - Psychological Associated symptoms: Normal affect, Normal mood - Skin Skin Temperature: Warm Skin Moisture: Dry Skin Color: Normal Course - Re-evaluation Re-evalutation: 04/02/17 07:37 Patient will be treated with antifungal creams and oral antifungal patient was also given a Urojet for the burning sensation patient was instructed to take Tylenol also for the pain will discharge home - Vital Signs Vital signs: Temp Pulse Resp BP Pulse Ox 97.8 F 83 18 130/60 H 99 04/02/17 06:17 04/02/17 06:17 04/02/17 06:17 04/02/17 06:17 04/02/17 06:17 Discharge - Discharge Clinical Impression: Balanitis Condition: Good Disposition: HOME, SELF-CARE Instructions: Thanh ([facility]) Additional Instructions: YourExamination reveals underlying yeast infection of the glans of the penis. This is why you are having a burning sensation. We treat this with antifungal medication. We did give you a dose of antifungal medication here in the ER you may take Tylenol for pain control also he may use the lidocaine jelly for very severe pain. Please do not forcibly retract your foreskin over the glans of the penis. He will take approximately 1 week for symptoms to totally resolve. Continue to apply the cream at least twice a day as directed. Return to the ER symptoms worsen. Prescriptions: Clotrimazole 1% Topical [Lotrimin 1% Topical Soln 10 ml] 1 applic TP BID #10 ml Referrals: JOSE CEDEÑO MD [Primary Care Provider] - Follow up as needed
== END 2017-04-02 07:00 | disposition home or self-care (01) ==
LOC: ER 06:10
DX: N48.1 Balanitis (principal); N48.89 Other specified disorders of penis; R30.9 Painful micturition, unspecified
CPT/HCPCS: 99283; A9270 ×2; J3490

== ENCOUNTER 2017-04-04 01:07 | Emergency (ER) | payer MEDICARE ==
[2017-04-04 01:36] VITALS: BP 113/52
--- NOTE | 2017-04-04 02:41 | ER Document Report ---
ED GI/ - General Chief Complaint: Penile Pain Stated Complaint: PENIAL PAIN Time Seen by Provider: 04/04/17 02:36 Notes: The patient is a 61-year-old male, past medical history ESRD, presents with 2 days of distal penis swelling and pain. He is not sexually active for the past year. He was seen in the ER yesterday and prescribed clotrimazole, but he was unable to afford at the $40 but it caused by [id number]. He was using the Urojet with relief of his symptoms is requesting another Urojet. He only makes a small amount of urine. Denies testicular pain, penile discharge or rash. TRAVEL OUTSIDE OF THE [place] IN LAST 30 DAYS: No - Related Data Allergies/Adverse Reactions: heparin Allergy (Verified 04/04/17 01:36) enoxaparin [From Lovenox] Adverse Reaction (Verified 04/04/17 01:36) Past Medical History - General Information source: Patient - Social History Smoking Status: Unknown if Ever Smoked Family History: CAD, DM Patient has suicidal ideation: No Patient has homicidal ideation: No - Past Medical History Cardiac Medical History: Reports: Hx Congestive Heart Failure, Hx Heart Attack, Hx Hypertension Endocrine Medical History: Reports: Hx Diabetes Mellitus Type 2 Renal/ Medical History: Reports: Hx End Stage Renal Disease. Denies: Hx Peritoneal Dialysis Musculoskeltal Medical History: Reports Hx Arthritis, Reports Hx Musculoskeletal Deformity, Reports Hx Musculoskeletal Trauma Psychiatric Medical History: Reports: Hx Depression Past Surgical History: Reports: Hx Appendectomy, Hx Cardiac Catheterization, Hx Cardiac Surgery - triple bypass, Hx Orthopedic Surgery - right knee replacement , Hx Rectal Surgery - abscess years ago, Other - Recent AV graft placementComment Only: Hx Abdominal Surgery - current hernia - Immunizations Immunizations up to date: Yes Hx Diphtheria, Pertussis, Tetanus Vaccination: Yes Hx Pneumococcal Vaccination: 05/23/13 Review of Systems - Review of Systems Notes: REVIEW OF SYSTEMS: CONSTITUTIONAL: -fevers, -chills EENT: -eye pain, -difficulty swallowing, -nasal congestion CARDIOVASCULAR:-chest pain, -syncope. RESPIRATORY: -cough, -SOB GASTROINTESTINAL: -abdominal pain, - nausea, -vomiting, -diarrhea GENITOURINARY: +penile swelling, -dysuria, -hematuria MUSCULOSKELETAL: -back pain, -neck pain SKIN: -rash or skin lesions. HEMATOLOGIC: -easy bruising or bleeding. LYMPHATIC: -swollen, enlarged glands. NEUROLOGICAL: -altered mental status or loss of consciousness, -headache, - neurologic symptoms PSYCHIATRIC: -anxiety, -depression. ALL OTHER SYSTEMS REVIEWED AND NEGATIVE. Physical Exam - Vital signs Vitals: Temp Pulse Resp BP Pulse Ox 98.5 F 84 16 113/52 L 95 04/04/17 01:35 04/04/17 01:04/04/17 01:04/04/17 01:04/04/17 01:35 - Notes Notes: PHYSICAL EXAMINATION: GENERAL: Well-appearing, well-nourished and in no acute distress. HEAD: Atraumatic, normocephalic. EYES: Pupils equal round and reactive to light, extraocular movements intact, sclera anicteric, conjunctiva are normal. ENT: nares patent, oropharynx clear without exudates. Moist mucous membranes. NECK: Normal range of motion, supple without lymphadenopathy LUNGS: Breath sounds clear to auscultation bilaterally and equal. No wheezes rales or rhonchi. HEART: Regular rate and rhythm without murmurs ABDOMEN: Soft, nontender, normoactive bowel sounds. No guarding, no rebound. No masses appreciated. : uncircumsized penis with white discharge around glans when foreskin is retracted, no testicular pain EXTREMITIES: Normal range of motion, no pitting or edema. No cyanosis. NEUROLOGICAL: Cranial nerves grossly intact. Normal speech, normal gait. Normal sensory and motor exams. PSYCH: Normal mood, normal affect. SKIN: Warm, Dry, normal turgor, no rashes or lesions noted. Course - Re-evaluation Re-evalutation: Patient provided with a coupon for $9 clotrimazole cream at [facility] and he said that he is able to afford this. Also provided with a refill of his Urojet. - Vital Signs Vital signs: Temp Pulse Resp BP Pulse Ox 98.5 F 84 16 113/52 L 95 04/04/17 01:35 04/04/17 01:35 04/04/17 01:35 04/04/17 01:35 04/04/17 01:35 Discharge - Discharge Clinical Impression: Balanitis Condition: Stable Disposition: HOME, SELF-CARE Additional Instructions: [facility] has the antifungal cream for $9. Use as directed. Balanitis Balanitis is inflammation of the foreskin and glans of the penis. The glans may be tender, red, and covered with discharge. It's caused by growth of bacteria or yeast. The problem is common in diabetic men. Retract the foreskin and wash the area with mild soap (such as Phisoderm) twice daily. Allow to dry a few minutes. Apply the antifungal or antibiotic ointment we've prescribed. It usually takes about a week to heal. If there are frequent or severe episodes, circumcision will prevent further problems. Return if the pain or inflammation are worsening, if you have fever or chills, or if you're unable to urinate.
[2017-04-04] MEDS ORDERED: LIDOCAINE 2% URO-JET 5 ML KIT MM ONE (02:47)
== END 2017-04-04 02:58 | disposition home or self-care (01) ==
LOC: ER 01:07
DX: N48.1 Balanitis (principal); E11.22 Type 2 diabetes mellitus with diabetic chronic kidney disease; N18.6 End stage renal disease; I13.2 Hypertensive heart and chronic kidney disease with heart failure and with stage 5 chronic kidney disease, or end stage renal disease; I50.9 Heart failure, unspecified; I25.2 Old myocardial infarction
CPT/HCPCS: 99283; A9270; J3490

== ENCOUNTER → 2017-04-15 | Outpatient (CLI) | payer MEDICARE ==
--- NOTE | 2017-04-15 12:23 | RADIOLOGY REPORT (SQ) ---
EXAM DESCRIPTION: CHEST PA/LATERAL COMPLETED DATE/TIME: 04/15/2017 11:56 am REASON FOR STUDY: PRE OP COMPARISON: 03/03/2017 EXAM PARAMETERS: NUMBER OF VIEWS: two views TECHNIQUE: Digital Frontal and Lateral radiographic views of the chest acquired. RADIATION DOSE: NA LIMITATIONS: none FINDINGS: LUNGS AND PLEURA: There is opacification in the left base. A small pleural effusion is pr esent. The right lung is clear. MEDIASTINUM AND HILAR STRUCTURES: No masses or contour abnormalities. HEART AND VASCULAR STRUCTURES: Cardiomegaly. No bennie failure. BONES: No acute findings. HARDWARE: A dual-lumen catheter is present on the right. Pacemaker is present. Heart valve. OTHER: No other significant finding. IMPRESSION: Cannot exclude limited left lower lobe pneumonia. Small left pleural effusion. Cardiom egaly without failure. TECHNICAL DOCUMENTATION: JOB ID: [id number] [employer]- All Rights Reserved
--- NOTE | 2017-04-15 12:26 | RADIOLOGY REPORT (SQ) ---
EXAM DESCRIPTION: FOOT RIGHT COMPLETE COMPLETED DATE/TIME: 04/15/2017 11:56 am REASON FOR STUDY: NON PRS CHRONIC ULCER OTH PRT RIGHT FOOT W/FAT LAYER EXPOSED Z01.818 ENCOUNTER FO R OTHER PREPROCEDURAL EXAMINATION L97.512 NON-PRS CHRONIC ULCER OTH PRT RIGHT FOOT W FAT LAYER L97.5 22 NON-PRS CHRONIC ULCER OTH PRT LEFT FOOT W FAT LAYER COMPARISON: 01/25/2017 NUMBER OF VIEWS: Three views. TECHNIQUE: AP, lateral and oblique radiographic images acquired of the right foot. LIMITATIONS: None. FINDINGS: MINERALIZATION: Osteopenia. There is no evidence of osteomyelitis BONES: No acute fracture or dislocation. No worrisome bone lesions. JOINTS: No effusions. SOFT TISSUES: No soft tissue swelling. No foreign body. OTHER: No other significant finding. IMPRESSION: There is no evidence of osteomyelitis. There is osteopenia, particularly in the hindfoo t. TECHNICAL DOCUMENTATION: JOB ID: [id number] [facility]- All Rights Reserved
--- NOTE | 2017-04-15 12:28 | RADIOLOGY REPORT (SQ) ---
EXAM DESCRIPTION: FOOT LEFT COMPLETE COMPLETED DATE/TIME: 04/15/2017 11:56 am REASON FOR STUDY: NON PRS CHRONIC ULCER OTH PRT LEFT FOOT W/FAT LAYER EXPOSED Z01.818 ENCOUNTER FOR OTHER PREPROCEDURAL EXAMINATION L97.512 NON-PRS CHRONIC ULCER OTH PRT RIGHT FOOT W FAT LAYER L97.52 2 NON-PRS CHRONIC ULCER OTH PRT LEFT FOOT W FAT LAYER COMPARISON: None. NUMBER OF VIEWS: Three views. TECHNIQUE: AP, lateral and oblique radiographic images acquired of the left foot. LIMITATIONS: None. FINDINGS: MINERALIZATION: There is no evidence of osteomyelitis. There is some degree of osteopenia , particularly in the hindfoot. BONES: No acute fracture or dislocation. No worrisome bone lesions. JOINTS: No effusions. SOFT TISSUES: No soft tissue swelling. No foreign body. OTHER: No other significant finding. IMPRESSION: There is no evidence of osteomyelitis. Osteopenia. TECHNICAL DOCUMENTATION: JOB ID: [id number] [employer]- All Rights Reserved
== END ==
LOC: OD 10:59
PROVIDERS: ATTEND Surgery
DX: Z01.818 Encounter for other preprocedural examination (principal); L97.512 Non-pressure chronic ulcer of other part of right foot with fat layer exposed; L97.522 Non-pressure chronic ulcer of other part of left foot with fat layer exposed
CPT/HCPCS: 71020

== ENCOUNTER 2017-04-19 22:42 | Emergency (ER) | payer MEDICARE, MEDICAID ==
--- NOTE | 2017-04-20 01:52 | ER Document Report ---
ED General - General Chief Complaint: Other Stated Complaint: GENERAL PAIN Time Seen by Provider: 04/20/17 01:15 Notes: Patient is a 61-year-old male presents with complaint of burning and stinging type pains into his hands arms legs and feet. He says he has his pain is very chronically however they are much worse today after dialysis and are much worse tonight. He does have history of leg cellulitis and does have multiple leg wounds and is followed by the wound clinic. Says he has his dressings changed every day. She is a wound clinic twice a week. He denies any fevers. No vomiting. No diarrhea. No difficulty breathing. No other complaints at this time. TRAVEL OUTSIDE OF THE [place] IN LAST 30 DAYS: No - Related Data Allergies/Adverse Reactions: heparin Allergy (Verified 04/19/17 23:36) enoxaparin [From Lovenox] Adverse Reaction (Verified 04/19/17 23:36) Past Medical History - Social History Smoking Status: Unknown if Ever Smoked Frequency of alcohol use: None Drug Abuse: None Family History: CAD, DM Patient has suicidal ideation: No Patient has homicidal ideation: No - Past Medical History Cardiac Medical History: Reports: Hx Congestive Heart Failure, Hx Heart Attack, Hx Hypertension Endocrine Medical History: Reports: Hx Diabetes Mellitus Type 2 Renal/ Medical History: Reports: Hx End Stage Renal Disease. Denies: Hx Peritoneal Dialysis Musculoskeltal Medical History: Reports Hx Arthritis, Reports Hx Musculoskeletal Deformity, Reports Hx Musculoskeletal Trauma Psychiatric Medical History: Reports: Hx Depression Past Surgical History: Reports: Hx Appendectomy, Hx Cardiac Catheterization, Hx Cardiac Surgery - triple bypass, Hx Orthopedic Surgery - right knee replacement , Hx Rectal Surgery - abscess years ago, Other - Recent AV graft placementComment Only: Hx Abdominal Surgery - current hernia - Immunizations Immunizations up to date: Yes Hx Diphtheria, Pertussis, Tetanus Vaccination: Yes Hx Pneumococcal Vaccination: 05/23/13 Review of Systems - Review of Systems Notes: My Normal Review Basic REVIEW OF SYSTEMS: CONSTITUTIONAL : Denies fever, chills, or sweats. Denies recent illness. EENT: Denies eye, ear, throat, or mouth pain or symptoms. Denies nasal or sinus congestion. CARDIOVASCULAR: Denies chest pain. RESPIRATORY: Denies cough, cold, or chest congestion. Denies shortness of breath, difficulty breathing, or wheezing. GASTROINTESTINAL: Denies abdominal pain. Denies nausea, vomiting, or diarrhea. Denies constipation. Last BM: MUSCULOSKELETAL: Pain and arms hands legs and feet. SKIN: Denies rash or skin lesions. LYMPHATIC: Chronic swelling in lower extremities. NEUROLOGICAL: Denies altered mental status or loss of consciousness. Denies headache. Denies weakness or paralysis or loss of use of either side. Denies problems with gait or speech. Denies sensory or motor loss. ALL OTHER SYSTEMS REVIEWED AND NEGATIVE. Physical Exam - Vital signs Vitals: Temp Pulse Resp BP Pulse Ox 99.0 F 83 18 103/33 L 97 04/19/17 23:36 04/19/17 23:36 04/19/17 23:36 04/19/17 23:36 04/19/17 23:36 - Notes Notes: General Appearance: Well nourished, alert, cooperative, no acute distress, moderate obvious discomfort. Vitals: reviewed, See vital signs table. Head: no swelling or tenderness to the head Eyes: PERRL, EOMI, Conjuctiva clear Mouth: No decreasd moisture Lungs: No wheezing, No rales, No rhonci, No accessory muscle use, good air exchange bilaterally. Heart: Normal rate, Regular rythm, No murmur, no rub Abdomen: Normal BS, soft, No rigidity, No abdominal tenderness, No guarding, no rebound, no abdominal masses, no organomegaly Extremities: strength 5/5 in all extremities, good pulses in all extremities I did cut the dressings of the patient's legs. Patient has multiple vascular sufficiency skin wounds on both legs. They appear to have good granulation tissues appear to be healing. I do not see any signs of secondary infection at this time. Patient does have chronic edema in both lower extremities that is equal. No foul smell. No abnormal drainage from wounds. Pain with touch to the scan of upper extremities as well as lower extremities consistent with neuropathy. Skin: warm, dry, appropriate color, no rash Neuro: speech clear, oriented x 3, normal affect, responds appropriately to questions. Course - Vital Signs Vital signs: Temp Pulse Resp BP Pulse Ox 99.0 F 83 18 103/33 L 97 04/19/17 23:36 04/19/17 23:36 04/19/17 23:36 04/19/17 23:36 04/19/17 23:36 - Laboratory Result Diagrams: 04/20/17 01:50 04/20/17 01:50 Laboratory results interpreted by me: 04/20/17 04/20/17 04/20/17 01:50 01:50 01:50 RBC 2.92 L Hgb 9.1 L Hct 27.7 L RDW 16.5 H Plt Count 139 L Lymphocytes % 12.3 L PT 56.9 H* INR 6.16 H* BUN 40 H Creatinine 5.05 H Est GFR ( Amer) 14 L Est GFR (Non-Af Amer) 12 L Calcium 8.3 L Discharge - Discharge Clinical Impression: Coagulopathy, Body aches Condition: Good Disposition: HOME, SELF-CARE Instructions: Oral Narcotic Medication ([facility]) Additional Instructions: Please return to the ER immediately if you have worsneing pain, bleeding, or feel unwell. Your INR (Coumadin level) was too high. We gave you a shot of Vitamin K which will help lower this level. Please do not take Coumadin or Warfarin for 2 days. Please follow up with your doctor or the ER on Tuesday to have your level rechecked before restarting your Coumadin. Referrals: JOSE CEDEÑO MD [Primary Care Provider] - 04/22/17
[2017-04-20 02:17] LABS: ANION GAP 17 (5-19); BLOOD UREA NITROGEN 40 mg/dL (7-20); CALCIUM 8.3 mg/dL (8.4-10.2); CARBON DIOXIDE 24 mmol/L (22-30); CHLORIDE 101 mmol/L (98-107); CREATININE RESULT 5.05 mg/dL (0.52-1.25); GLUCOSE 98 mg/dL (75-110); POTASSIUM 4.1 mmol/L (3.6-5.0)
[2017-04-20 02:25] LABS: PROTHROMBIN TIME 56.9 SEC (11.4-15.4)
[2017-04-20] MEDS ORDERED: PHYTONADIONE INJ 10 MG/1 ML AMPULE SUBCUT ONE (02:52)
[2017-04-20] MEDS ORDERED: HYDROCODONE/ACETAMINOPHEN 5-325 MG 6 TAB/DSPK PO PRN (02:52)
[2017-04-20 03:06] LABS: ABSOLUTE BASOPHILS # (AUTO) 0.1 10^3/uL (0.0-0.2); ABSOLUTE EOSINOPHILS # (AUTO) 0.3 10^3/uL (0.0-0.6); ABSOLUTE LYMPHOCYTES (AUTO) 0.8 10^3/uL (0.5-4.7); ABSOLUTE MONOCYTES (AUTO) 0.8 10^3/uL (0.1-1.4); ABSOLUTE NEUT (AUTO) 4.7 10^3/uL (1.7-8.2); BASOPHILS % (AUTO) 1.2 % (0-2); EOSINOPHILS % (AUTO) 3.9 % (0-6); HEMATOCRIT 27.7 % (37.9-51.0); HEMOGLOBIN 9.1 g/dL (13.5-17.0); HGB HCT DIFFERENCE -0.4; LYMPHOCYTES % (AUTO) 12.3 % (13-45); MEAN CORPUSCULAR HEMOGLOBIN 31.1 pg (27.0-33.4); MEAN CORPUSCULAR HGB CONC 32.9 g/dL (32.0-36.0); MEAN CORPUSCULAR VOLUME 95 fl (80-97); MONOCYTES % (AUTO) 12.5 % (3-13); RED BLOOD COUNT 2.92 10^6/uL (4.35-5.55); RED CELL DISTRIBUTION WIDTH 16.5 % (11.5-14.0); SEGMENTED NEUTROPHILS % (AUTO) 70.1 % (42-78); WHITE BLOOD COUNT 6.7 10^3/uL (4.0-10.5)
[2017-04-20 03:21] VITALS: BP 100/78
== END 2017-04-20 04:20 ==
LOC: ER 22:42
DX: D68.9 Coagulation defect, unspecified (principal); M79.1 Myalgia
CPT/HCPCS: 99283; 36415; 85025; 85610; 80048; J3430; A9270

== ENCOUNTER → 2017-04-22 | Outpatient (CLI) | payer MEDICAID, MEDICARE ==
[2017-04-22 09:46] LABS: HEMATOCRIT 28.3 % (37.9-51.0); HEMOGLOBIN 9.2 g/dL (13.5-17.0); HGB HCT DIFFERENCE -0.7; MEAN CORPUSCULAR HEMOGLOBIN 30.9 pg (27.0-33.4); MEAN CORPUSCULAR HGB CONC 32.6 g/dL (32.0-36.0); MEAN CORPUSCULAR VOLUME 95 fl (80-97); RED BLOOD COUNT 2.99 10^6/uL (4.35-5.55); RED CELL DISTRIBUTION WIDTH 16.5 % (11.5-14.0); WHITE BLOOD COUNT 7.2 10^3/uL (4.0-10.5)
--- NOTE | 2017-04-22 10:00 | RADIOLOGY REPORT (SQ) ---
EXAM DESCRIPTION: CT CHEST WITHOUT COMPLETED DATE/TIME: 04/22/2017 8:57 am REASON FOR STUDY: ABNORMAL FINDINGS ON DIAGNOSTIC IMAGING OF OTHER SPECIFIED BODY STRUCTURES R93.8 ABNORMAL FINDINGS ON DIAGNOSTIC IMAGING OF BODY STRUCT COMPARISON: CT abdomen pelvis 01/09/2017 Chest films 04/15/2017, 10/28/2016, 07/22/2015 TECHNIQUE: CT scan performed of the chest without intravenous contrast. Images reviewed with lung, soft tissue and bone windows. Reconstructed coronal and sagittal MPR images reviewed. All images st ored on PACS. All CT scanners at this facility use dose modulation, iterative reconstruction, and/or weight based d osing when appropriate to reduce radiation dose to as low as reasonably achievable (ALARA). [facility]: Dose Right [facility]: CareDose [facility]: Dose Right [facility]: Teradose 4D [facility]: [employer] RADIATION DOSE: Up-to-date CT equipment and radiation dose reduction techniques were employed. CTDIv ol: 19.0 mGy. DLP: 864 mGy-cm. mGy. LIMITATIONS: No technical limitations. FINDINGS: LUNGS AND PLEURA: In the left posterior costophrenic sulcus, left lower lobe volume loss a nd consolidation with a air bronchograms and rounded contour is present. This most likely represents rounded atelectasis, measures 9 x 3.5 cm in size on axial image 96, and is similar compared to CT ab domen pelvis 01/09/2017. Remainder of the lungs are well inflated and free of focal infiltrates. Airways are patent. Trace l eft pleural fluid. No pleural calcifications. HILAR AND MEDIASTINAL STRUCTURES: No identified masses or abnormal nodes. No obvious aneurysm. HEART AND VASCULAR STRUCTURES: Mild cardiomegaly. Diffuse [place] coronary artery calcifications. Le ft atrial appendage clip. Post sternotomy and CABG. UPPER ABDOMEN: Stones in gallbladder. Splenomegaly, at least 18 cm in length. Small amount of left upper quadrant ascites. THYROID AND OTHER SOFT TISSUES: No masses. No adenopathy. BONES: There is an old midline sternotomy with a greater than 1 cm diastases between the sternal halv es. Old left lower lateral rib fractures HARDWARE: Left-sided permanent central line tip superior vena cava. OTHER: No other significant findings. IMPRESSION: Probable rounded atelectasis in the left posterior costophrenic sulcus. Gallstones. Splenomegaly. Mild diastases of the sternum post CABG. No retention sutures are seen TECHNICAL DOCUMENTATION: JOB ID: [id number] Quality ID # [id number]: Final reports with documentation of one or more dose reduction techniques (e.g., Au tomated exposure control, adjustment of the mA and/or kV according to patient size, use of iterative reconstruction technique) 2010 [employer]- All Rights Reserved
[2017-04-22 10:04] LABS: FREE T3 2.78 pg/mL (2.77-5.27)
[2017-04-22 10:17] LABS: BAND NEUTROPHILS % (MANUAL) 2 % (3-5); BASOPHILS % (MANUAL) 1 % (0-2); EOSINOPHILS % (MANUAL) 2 % (0-6); LYMPHOCYTES % (MANUAL) 13 % (13-45); TOTAL CELLS COUNTED 100
[2017-04-22 10:18] LABS: THYROID STIMULATING HORMONE 7.56 uIU/mL (0.47-4.68)
[2017-04-22 10:19] LABS: ANISOCYTOSIS 1+; HYPOCHROMASIA SLIGHT; POLYCHROMASIA SLIGHT; ROULEAUX SLIGHT; TOXIC GRANULATION 1+
[2017-04-22 10:27] LABS: ERYTHROCYTE SEDIMENTATION RATE 95 mm/hr (0-20)
== END ==
LOC: RAD 08:42
PROVIDERS: ATTEND Internal Medicine Pulmonary Disease
DX: R06.09 Other forms of dyspnea (principal); R53.83 Other fatigue; R93.8 Abnormal findings on diagnostic imaging of other specified body structures; K80.80 Other cholelithiasis without obstruction; R16.1 Splenomegaly, not elsewhere classified; Z95.1 Presence of aortocoronary bypass graft
CPT/HCPCS: 36415; 71250; 84439; 84443; 84481; 85025; 85652

== ENCOUNTER 2017-04-28 20:44 | Emergency (ER) | payer MEDICARE ==
[2017-04-28] MEDS ORDERED: OXYCODONE-ACETAMINOPHEN 5-325 MG TABLET PO ONE (21:11)
--- NOTE | 2017-04-28 21:13 | ER Document Report ---
ED Fall - General Chief Complaint: Fall Stated Complaint: FALL Time Seen by Provider: 04/28/17 20:57 Notes: Patient is a 61-year-old male that comes emergency department for chief complaint of a fall, he states that he lost his balance when he is getting up off the toilet and he landed on the ground on his buttocks. He did scrape his left leg when going down. He has multiple dressings on both lower extremities from chronic wounds, he has home health and he sees wound care for these. He denies pain in his back, abdomen, chest, denies head injury, passing out, vomiting. He states he did not want to come but his roommate called and then he consented. TRAVEL OUTSIDE OF THE [place] IN LAST 30 DAYS: No - Related data Allergies/Adverse Reactions: heparin Allergy (Verified 04/19/17 23:36) enoxaparin [From Lovenox] Adverse Reaction (Verified 04/19/17 23:36) Past Medical History - General Information source: Patient - Social History Smoking Status: Never Smoker Frequency of alcohol use: None Drug Abuse: None Lives with: Other - Roommate Family History: CAD, DM - Past Medical History Cardiac Medical History: Reports: Hx Congestive Heart Failure, Hx Heart Attack, Hx Hypertension Endocrine Medical History: Reports: Hx Diabetes Mellitus Type 2 Renal/ Medical History: Reports: Hx End Stage Renal Disease. Denies: Hx Peritoneal Dialysis Musculoskeltal Medical History: Reports Hx Arthritis, Reports Hx Musculoskeletal Deformity, Reports Hx Musculoskeletal Trauma Psychiatric Medical History: Reports: Hx Depression Past Surgical History: Reports: Hx Appendectomy, Hx Cardiac Catheterization, Hx Cardiac Surgery - triple bypass, Hx Orthopedic Surgery - right knee replacement , Hx Rectal Surgery - abscess years ago, Other - Recent AV graft placementComment Only: Hx Abdominal Surgery - current hernia - Immunizations Immunizations up to date: Yes Hx Diphtheria, Pertussis, Tetanus Vaccination: Yes Hx Pneumococcal Vaccination: 05/23/13 Review of Systems - Review of Systems Constitutional: No symptoms reported EENT: No symptoms reported Cardiovascular: No symptoms reported Respiratory: No symptoms reported Gastrointestinal: No symptoms reported Genitourinary: No symptoms reported Male Genitourinary: No symptoms reported Musculoskeletal: See HPI Skin: See HPI Hematologic/Lymphatic: No symptoms reported Neurological/Psychological: No symptoms reported Physical Exam - Vital signs Vitals: Resp BP Pulse Ox 15 112/60 94 04/28/17 21:20 04/28/17 21:20 04/28/17 21:20 Interpretation: Normal - General General appearance: Appears well, Alert In distress: None - Patient alert, well-appearing - HEENT Head: Normocephalic, Atraumatic Eyes: Normal Pupils: PERRL - Respiratory Respiratory status: No respiratory distress Chest status: Nontender Breath sounds: Normal Chest palpation: Normal - Cardiovascular Rhythm: Regular Heart sounds: Normal auscultation Murmur: No - Abdominal Inspection: Normal Distension: No distension Bowel sounds: Normal Tenderness: Nontender Organomegaly: No organomegaly - Back Back: Normal, Nontender. No: Tender - Completely nontender back, spine, no saddle anesthesia, full range of motion of all extremities, normal distal neurovascular exam. No signs of trauma, Vertebra tenderness - Extremities General upper extremity: Normal inspection, Nontender, Normal color, Normal ROM , Normal temperature General lower extremity: Other - Patient with multiple lower extremity wounds which appear chronic, there is a medial wound with packing in place which appears to have been scraped over the dressing, there is bleeding into the dressings, dressings removed, area is not significantly tender, partial- thickness and not down to the bone, no heavy bleeding noted. - Neurological Neuro grossly intact: Yes Cognition: Normal Orientation: AAOx4 [place] Coma Scale Eye Opening: Spontaneous [place] Coma Scale Verbal: Oriented [place] Coma Scale Motor: Obeys Commands [place] Coma Scale Total: 15 Speech: Normal Motor strength normal: LUE, RUE, LLE, RLE Sensory: Normal - Psychological Associated symptoms: Normal affect, Normal mood - Skin Skin Temperature: Warm Skin Moisture: Dry Skin Color: Normal Course - Re-evaluation Re-evalutation: Patient appears with scraped his dressings on the left medial leg, there was some bleeding, areas were redressed although no wounds requiring swelling were noted. X-ray was performed because of the injury to the area, shows no acute abnormalities. Completely nontender over his back, moving all extremities without difficulty, no head injury, no other signs of injury on examination. Patient requesting to leave. He states that he will call wound care and try to follow-up with them tomorrow to have the area rechecked. He states he will return if he worsens in any way. - Vital Signs Vital signs: Temp Pulse Resp BP Pulse Ox 97.7 F 78 18 96/58 L 95 04/29/17 00:05 04/29/17 00:05 04/29/17 00:05 04/29/17 00:05 04/29/17 00:05 Discharge - Discharge Clinical Impression: Fall Qualifiers: Encounter type: initial encounter Qualified Code(s): W19.XXXA - Unspecified fall, initial encounter Condition: Stable Disposition: HOME, SELF-CARE Additional Instructions: Your examination does not show any concerning findings except for disturbing of the wound in your left mid leg, please follow-up tomorrow with the wound clinic to have this reevaluated for additional management. Return to emergency department for any other concerning symptoms including pain in your back, abdomen, numbness, or any other concerning symptoms. Referrals: JOSE CEDEÑO MD [Primary Care Provider] - Follow up as needed
--- NOTE | 2017-04-28 23:23 | RADIOLOGY REPORT (SQ) ---
EXAM DESCRIPTION: TIBIA FIBULA LEFT COMPLETED DATE/TIME: 04/28/2017 10:16 pm REASON FOR STUDY: fall, leg injury COMPARISON: None. NUMBER OF VIEWS: Two views. TECHNIQUE: Two radiographic images acquired of the left tibia and fibula to include the knee and ank le in at least one projection. LIMITATIONS: None. FINDINGS: MINERALIZATION: Normal. BONES: No acute fracture or dislocation. No worrisome bone lesions. SOFT TISSUES: Soft tissue laceration in the posteromedial lower tibial level with a small amount of dense material the subcutaneous fat, possible foreign body. OTHER: No other significant finding. IMPRESSION: No fracture identified. Soft tissue laceration in the posteromedial lower tibial level with a small amount of dense material the subcutaneous fat, possible foreign body. TECHNICAL DOCUMENTATION: JOB ID: [id number] [employer]- All Rights Reserved
[2017-04-29 00:45] VITALS: BP 96/58
== END 2017-04-29 00:25 | disposition home or self-care (01) ==
LOC: ER 20:44
DX: S89.92XA Unspecified injury of left lower leg, initial encounter (principal); W18.11XA Fall from or off toilet without subsequent striking against object, initial encounter; E11.22 Type 2 diabetes mellitus with diabetic chronic kidney disease; I12.0 Hypertensive chronic kidney disease with stage 5 chronic kidney disease or end stage renal disease; N18.6 End stage renal disease; I50.9 Heart failure, unspecified; I25.2 Old myocardial infarction; Z95.1 Presence of aortocoronary bypass graft; Z96.651 Presence of right artificial knee joint
CPT/HCPCS: 99284; 73590; A9270

== ENCOUNTER 2017-04-30 15:12 | Emergency (ER) | payer MEDICARE ==
--- NOTE | 2017-04-30 15:29 | ER Document Report ---
ED Hand/Wrist Injury - General Chief Complaint: Hand Pain Stated Complaint: BILATERAL HAND PAIN Time Seen by Provider: 04/30/17 15:28 Notes: The patient is a 61-year-old male, past medical history ESRD ([facility]), peripheral neuropathy, presents with increased tingling in his bilateral fingers and palm started earlier today during dialysis. He stopped dialysis because it started to become painful. He has not taking his 300 mg gabapentin for the past few days. He denies headache, focal weakness, neck pain, chest pain, shortness of breath, ataxia, rash, fevers or shortness of breath. TRAVEL OUTSIDE OF THE [place] IN LAST 30 DAYS: No - Related Data Allergies/Adverse Reactions: heparin Allergy (Verified 04/19/17 23:36) enoxaparin [From Lovenox] Adverse Reaction (Verified 04/19/17 23:36) Past Medical History - General Information source: Patient - Social History Smoking Status: Unknown if Ever Smoked Family History: CAD, DM - Past Medical History Cardiac Medical History: Reports: Hx Congestive Heart Failure, Hx Heart Attack, Hx Hypertension Endocrine Medical History: Reports: Hx Diabetes Mellitus Type 2 Renal/ Medical History: Reports: Hx End Stage Renal Disease. Denies: Hx Peritoneal Dialysis Musculoskeltal Medical History: Reports Hx Arthritis, Reports Hx Musculoskeletal Deformity, Reports Hx Musculoskeletal Trauma Psychiatric Medical History: Reports: Hx Depression Past Surgical History: Reports: Hx Appendectomy, Hx Cardiac Catheterization, Hx Cardiac Surgery - triple bypass, Hx Orthopedic Surgery - right knee replacement , Hx Rectal Surgery - abscess years ago, Other - Recent AV graft placementComment Only: Hx Abdominal Surgery - current hernia - Immunizations Immunizations up to date: Yes Hx Diphtheria, Pertussis, Tetanus Vaccination: Yes Hx Pneumococcal Vaccination: 05/23/13 Review of Systems - Review of Systems Notes: REVIEW OF SYSTEMS: CONSTITUTIONAL: -fevers, -chills EENT: -eye pain, -difficulty swallowing, -nasal congestion CARDIOVASCULAR:-chest pain, -syncope. RESPIRATORY: -cough, -SOB GASTROINTESTINAL: -abdominal pain, - nausea, -vomiting, -diarrhea GENITOURINARY: -dysuria, -hematuria MUSCULOSKELETAL: +B/L hand tingling, -back pain, -neck pain SKIN: -rash or skin lesions. HEMATOLOGIC: -easy bruising or bleeding. LYMPHATIC: -swollen, enlarged glands. NEUROLOGICAL: -altered mental status or loss of consciousness, -headache PSYCHIATRIC: -anxiety, -depression. ALL OTHER SYSTEMS REVIEWED AND NEGATIVE. Physical Exam - Vital signs Vitals: Temp Pulse Resp BP Pulse Ox 97.5 F 79 20 110/68 97 04/30/17 15:15 04/30/17 15:15 04/30/17 15:15 04/30/17 15:15 04/30/17 15:15 - Notes Notes: PHYSICAL EXAMINATION: GENERAL: Well-appearing, well-nourished and in no acute distress. HEAD: Atraumatic, normocephalic. EYES: Pupils equal round and reactive to light, extraocular movements intact, sclera anicteric, conjunctiva are normal. ENT: nares patent, oropharynx clear without exudates. Moist mucous membranes. NECK: Normal range of motion, supple without lymphadenopathy LUNGS: Breath sounds clear to auscultation bilaterally and equal. No wheezes rales or rhonchi. CHEST: Right upper chest wall dialysis catheter. HEART: Regular rate and rhythm without murmurs ABDOMEN: Soft, nontender, normoactive bowel sounds. No guarding, no rebound. No masses appreciated. EXTREMITIES: Normal range of motion, no pitting or edema. No cyanosis. NEUROLOGICAL: Cranial nerves grossly intact. Normal speech, normal gait. Tingling in right and left 1st-3rd fingers. +Phalen's and Tinnel's tests. PSYCH: Normal mood, normal affect. SKIN: Warm, Dry, normal turgor, no rashes or lesions noted. Course - Re-evaluation Re-evalutation: Patient has history of diabetes and peripheral neuropathy that he takes gabapentin 300 mg twice daily, but he has not taken this in several weeks. With bilateral symptoms and no focal weakness, do not suspect CVA at this time. His labs are consistent with ESRD and he does not require any emergent dialysis. Also no signs of rhabdo. After the gabapentin, patient's symptoms completely resolved. He does have some tingling in his first through third fingers bilaterally with positive Phalen's and Tinel's test. Provided patient with wrist splints to wear at night to help him out with carpal tunnel syndrome symptoms and he will follow with his primary care physician. - Vital Signs Vital signs: Temp Pulse Resp BP Pulse Ox 97.5 F 79 16 122/61 99 04/30/17 15:15 04/30/17 15:15 04/30/17 16:00 04/30/17 15:34 04/30/17 16:00 - Laboratory Result Diagrams: 04/30/17 15:41 04/30/17 15:41 Laboratory results interpreted by me: 04/30/17 04/30/17 15:41 15:41 RBC 2.68 L Hgb 8.3 L Hct 25.1 L RDW 17.0 H Plt Count 127 L Lymphocytes % 12.5 L BUN 43 H Creatinine 5.00 H Est GFR ( Amer) 14 L Est GFR (Non-Af Amer) 12 L Glucose 128 H Calcium 8.1 L Total Bilirubin 1.7 H Direct Bilirubin 1.6 H Alkaline Phosphatase 200 H Albumin 3.4 L Discharge - Discharge Clinical Impression: Peripheral neuropathy Qualifiers: Peripheral neuropathy type: polyneuropathy, unspecified Qualified Code(s): G62.9 - Polyneuropathy, unspecified Condition: Stable Disposition: HOME, SELF-CARE Additional Instructions: Neuropathy Your symptoms are due to neuropathy. Neuropathy is nerve damage. There are many causes, including diabetes, immune disease, alcohol, blood vessel disease, and vitamin deficiency. The usual symptoms are pain and numbness. Neuropathy can occur anywhere, but it's most likely in the "longest" nerves. That's why the feet are most often affected. Sometimes the nerve damage can heal. But if the symptoms have lasted more than a few months, the damage is permanent. To avoid further damage, treat your underlying health problems carefully. If you have diabetes, keep the blood sugar as normal as possible. Avoid alcohol. Treat high blood pressure and high cholesterol. Treating chronic pain can be a problem. Obviously, you don't want to become addicted to pain medicine. Work closely with your doctor on pain management. Your options include antiinflammatory medicine, anti seizure medicine, antidepressants, and pain clinic management. Contact the doctor if there is a significant change. Carpal Tunnel Syndrome Your examination suggests carpal tunnel syndrome. This syndrome is due to pressure on a nerve in the wrist. The pressure may be caused by an old injury, hard work using the wrist, work involving repeated motions of the hand, wrist positions that keep pressure on the joint, or arthritis in the wrist. Typical symptoms are tingling, numbness, and pain in the palm, thumb, index and middle fingers, and one side of the ring finger. Often a splint, ice packs, and antiinflammatory medication make the symptoms go away. If the physician feels that your problem is chronic, you will be referred to a specialist for further care. If symptoms do not go away, carpal tunnel syndrome may require surgery. You should call the doctor if pain increases, if you develop difficulty using the thumb or fingers, or if major swelling occurs. Referrals: JERMAINE PARKER MD [ACTIVE STAFF] - Follow up as needed
[2017-04-30] MEDS ORDERED: GABAPENTIN 300 MG CAPSULE PO ONE (15:43)
[2017-04-30 15:57] LABS: ABSOLUTE BASOPHILS # (AUTO) 0.1 10^3/uL (0.0-0.2); ABSOLUTE EOSINOPHILS # (AUTO) 0.2 10^3/uL (0.0-0.6); ABSOLUTE LYMPHOCYTES (AUTO) 0.8 10^3/uL (0.5-4.7); ABSOLUTE MONOCYTES (AUTO) 0.8 10^3/uL (0.1-1.4); ABSOLUTE NEUT (AUTO) 4.6 10^3/uL (1.7-8.2); BASOPHILS % (AUTO) 0.8 % (0-2); EOSINOPHILS % (AUTO) 2.7 % (0-6); HEMATOCRIT 25.1 % (37.9-51.0); HEMOGLOBIN 8.3 g/dL (13.5-17.0); HGB HCT DIFFERENCE -0.2; LYMPHOCYTES % (AUTO) 12.5 % (13-45); MEAN CORPUSCULAR HEMOGLOBIN 31.1 pg (27.0-33.4); MEAN CORPUSCULAR HGB CONC 33.3 g/dL (32.0-36.0); MEAN CORPUSCULAR VOLUME 94 fl (80-97); MONOCYTES % (AUTO) 12.3 % (3-13); RED BLOOD COUNT 2.68 10^6/uL (4.35-5.55); SEGMENTED NEUTROPHILS % (AUTO) 71.7 % (42-78); WHITE BLOOD COUNT 6.4 10^3/uL (4.0-10.5)
[2017-04-30 16:11] LABS: ALANINE AMINOTRANSFERASE 21 U/L (21-72); ALBUMIN 3.4 g/dL (3.5-5.0); ALKALINE PHOSPHATASE 200 U/L (38-126); ANION GAP 17 (5-19); ASPARTATE AMINO TRANSFERASE 25 U/L (17-59); BILIRUBIN,DIRECT 1.6 mg/dL (0.0-0.4); BILIRUBIN,TOTAL 1.7 mg/dL (0.2-1.3); BLOOD UREA NITROGEN 43 mg/dL (7-20); CALCIUM 8.1 mg/dL (8.4-10.2); CARBON DIOXIDE 26 mmol/L (22-30); CHLORIDE 98 mmol/L (98-107); CREATINE KINASE 84 U/L (55-170); GLUCOSE 128 mg/dL (75-110); POTASSIUM 3.7 mmol/L (3.6-5.0); SODIUM 141.2 mmol/L (137-145); TOTAL PROTEIN 7.4 g/dL (6.3-8.2)
[2017-04-30 17:13] VITALS: BP 122/61
== END 2017-04-30 17:25 | disposition home or self-care (01) ==
LOC: ER 15:12
DX: G62.9 Polyneuropathy, unspecified (principal); M79.642 Pain in left hand; M79.641 Pain in right hand; N18.6 End stage renal disease; R20.0 Anesthesia of skin; Z99.2 Dependence on renal dialysis; Z79.899 Other long term (current) drug therapy
CPT/HCPCS: 99283; 36415; 82550; 85025; 80053; L3908; A9270

== ENCOUNTER 2017-05-01 22:56 | Emergency (ER) | payer MEDICARE ==
[2017-05-01 23:07] VITALS: BP 102/61
--- NOTE | 2017-05-01 23:40 | ER Document Report ---
HPI - HPI Pain Level: 3 Notes: Patient is a 61-year-old diabetic male who presents the ED for wound dressing change to his ulcerations on his bilateral lower extremities. Patient states that his wound critical care technician did not show up today which is what brought him in because he cannot do it himself. Patient states that [facility] for [facility] treatment. Patient states that he did bring his supplies of iodine and an antibiotic cream and can tell us how to place it on his ulcers. He has no other concerns or complaints. Denies any headache, fever, URI, sore throat, chest pain, palpitations, syncope, cough, shortness of breath, wheeze, dyspnea, abdominal pain, nausea/vomiting/diarrhea. Pt is cared for by the wound clinic. - ROS Notes: REVIEW OF SYSTEMS: CONSTITUTIONAL : Denies fever, chills, or sweats. Denies recent illness. EENT: Denies eye, ear, throat, or mouth pain or symptoms. Denies nasal or sinus congestion or discharge. Denies throat, tongue, or mouth swelling or difficulty swallowing. CARDIOVASCULAR: Denies chest pain. Denies palpitations or racing or irregular heart beat. Denies ankle edema. RESPIRATORY: Denies cough, cold, or chest congestion. Denies shortness of breath, difficulty breathing, or wheezing. GASTROINTESTINAL: Denies abdominal pain or distention. Denies nausea, vomiting , or diarrhea. Denies blood in vomitus, stools, or per rectum. Denies black, tarry stools. Denies constipation. GENITOURINARY: Denies difficulty urinating, painful urination, burning, frequency, blood in urine, or discharge. MUSCULOSKELETAL: Denies back or neck pain or stiffness. Denies joint pain or swelling. SKIN: see hpi NEUROLOGICAL: Denies confusion or altered mental status. Denies passing out or loss of consciousness. Denies dizziness or lightheadedness. Denies headache. Denies weakness or paralysis or loss of use of either side. Denies problems with gait or speech. Denies sensory loss, numbness, or tingling. ALL OTHER SYSTEMS REVIEWED AND NEGATIVE. Dictation was performed using [employer] voice recognition software - DERM Skin Color: Normal Past Medical History - Social History Smoking Status: Unknown if Ever Smoked Family History: CAD, DM Patient has suicidal ideation: No Patient has homicidal ideation: No - Past Medical History Cardiac Medical History: Reports: Hx Congestive Heart Failure, Hx Heart Attack, Hx Hypertension Endocrine Medical History: Reports: Hx Diabetes Mellitus Type 2 Renal/ Medical History: Reports: Hx End Stage Renal Disease. Denies: Hx Peritoneal Dialysis Musculoskeltal Medical History: Reports Hx Arthritis, Reports Hx Musculoskeletal Deformity, Reports Hx Musculoskeletal Trauma Psychiatric Medical History: Reports: Hx Depression Past Surgical History: Reports: Hx Appendectomy, Hx Cardiac Catheterization, Hx Cardiac Surgery - triple bypass, Hx Orthopedic Surgery - right knee replacement , Hx Rectal Surgery - abscess years ago, Other - Recent AV graft placementComment Only: Hx Abdominal Surgery - current hernia - Immunizations Immunizations up to date: Yes Hx Diphtheria, Pertussis, Tetanus Vaccination: Yes Hx Pneumococcal Vaccination: 05/23/13 Vertical Provider Document - CONSTITUTIONAL Agree With Documented VS: Yes Notes: PHYSICAL EXAMINATION: GENERAL: Well-appearing, well-nourished and in no acute distress. LUNGS: Breath sounds clear to auscultation bilaterally and equal. No wheezes rales or rhonchi. HEART: Regular rate and rhythm without murmurs, rubs, gallops. Musculoskeletal: FROM to passive/active. Strength 5+/5. NEUROLOGICAL: Normal speech, normal gait. PSYCH: Normal mood, normal affect. SKIN: several large ulcerations to his LE's b/l. No obvious signs of cellulitis at this time. No red streaks, abscess, or purulent discharge. - INFECTION CONTROL TRAVEL OUTSIDE OF THE [place] IN LAST 30 DAYS: No - RESPIRATORY O2 Sat by Pulse Oximetry: 92 Course - Re-evaluation Re-evalutation: 05/01/17 23:38 Patient is an afebrile, well-hydrated, 61-year-old male who presents the ED for wound dressing changes for his diabetic ulcers. Vitals are stable. PE is otherwise unremarkable at this time for any signs of abscess or cellulitis. Wound dressing change was accomplished per direction of patient. Patient to continue care with the wound clinic as directed and continue his appointment tomorrow with the [facility]. Recheck with your PCM later this week as well. Return to the ED with any worsening/concerning symptoms otherwise as reviewed in discharge. Patient is in agreement. - Vital Signs Vital signs: Temp Pulse Resp BP Pulse Ox 98.8 F 87 20 102/61 92 05/01/17 23:04 05/01/17 23:04 05/01/17 23:04 05/01/17 23:04 05/01/17 23:04 Discharge - Discharge Clinical Impression: Encounter for change or removal of wound dressing Condition: Stable Disposition: HOME, SELF-CARE Additional Instructions: Continue wound dressing changes as directed by the wound clinic Continue monitoring for any acute changes in your symptoms Keep appointment tomorrow with [facility] Recheck with PCM this week Return to the ED with any worsening symptoms and/or development of fever, headache, chest pain, palpitations, syncope, shortness of breath, trouble breathing, abdominal pain, n/v/d, purulent discharge, red streaks, abscess, or other worsening symptoms that are concerning to you. Referrals: Wound Care [Provider Group] - Follow up as needed
== END 2017-05-02 00:15 | disposition home or self-care (01) ==
LOC: ER 22:56
DX: Z48.00 Encounter for change or removal of nonsurgical wound dressing (principal); M79.604 Pain in right leg; M79.605 Pain in left leg
CPT/HCPCS: 99282

== ENCOUNTER 2017-05-04 11:21 | Emergency (ER) | payer MEDICARE ==
[2017-05-04] MEDS ORDERED: VANCOMYCIN HCL INJ 1000 MG VIAL IV ONE (11:52)
[2017-05-04] MEDS ORDERED: NORMAL SALINE 1000 ML 1,000 ML IV ONE (11:52)
--- NOTE | 2017-05-04 11:54 | ER Document Report ---
ED Medical Screen (RME) - General Chief Complaint: Leg Pain Stated Complaint: SKIN ISSUE/LEG PAIN Time Seen by Provider: 05/04/17 11:51 Notes: Diabetic patient was sent from wound clinic. Patient has multiple necrotic decubiti on both lower extremities with surrounding cellulitis. TRAVEL OUTSIDE OF THE [place] IN LAST 30 DAYS: No - Related Data Allergies/Adverse Reactions: heparin Allergy (Verified 05/04/17 11:29) enoxaparin [From Lovenox] Adverse Reaction (Verified 05/04/17 11:29) Past Medical History - Social History Chew tobacco use (# tins/day): No Frequency of alcohol use: None Drug Abuse: None - Past Medical History Cardiac Medical History: Reports: Hx Atrial Fibrillation, Hx Congestive Heart Failure, Hx Heart Attack, Hx Hypertension Endocrine Medical History: Reports: Hx Diabetes Mellitus Type 2 Renal/ Medical History: Reports: Hx End Stage Renal Disease. Denies: Hx Peritoneal Dialysis Musculoskeltal Medical History: Reports Hx Arthritis, Reports Hx Musculoskeletal Deformity, Reports Hx Musculoskeletal Trauma Psychiatric Medical History: Reports: Hx Depression Past Surgical History: Reports: Hx Appendectomy, Hx Cardiac Catheterization, Hx Cardiac Surgery - triple bypass, Hx Orthopedic Surgery - right knee replacement , Hx Rectal Surgery - abscess years ago, Other - Recent AV graft placementComment Only: Hx Abdominal Surgery - current hernia - Immunizations Immunizations up to date: Yes Hx Diphtheria, Pertussis, Tetanus Vaccination: Yes History of Influenza Vaccine for 04/2017 - 09/2017 Season: No Physical Exam - Vital signs Vitals: Temp Pulse Resp BP Pulse Ox 98.5 F 82 19 104/50 L 97 05/04/17 11:33 05/04/17 11:33 05/04/17 11:33 05/04/17 11:33 05/04/17 11:33 Course - Vital Signs Vital signs: Temp Pulse Resp BP Pulse Ox 98.5 F 82 19 104/50 L 97 05/04/17 11:33 05/04/17 11:33 05/04/17 11:33 05/04/17 11:33 05/04/17 11:33
[2017-05-04 12:32] LABS: ABSOLUTE BASOPHILS # (AUTO) 0.1 10^3/uL (0.0-0.2); ABSOLUTE EOSINOPHILS # (AUTO) 0.1 10^3/uL (0.0-0.6); ABSOLUTE LYMPHOCYTES (AUTO) 0.6 10^3/uL (0.5-4.7); ABSOLUTE MONOCYTES (AUTO) 0.8 10^3/uL (0.1-1.4); ABSOLUTE NEUT (AUTO) 5.6 10^3/uL (1.7-8.2); EOSINOPHILS % (AUTO) 1.2 % (0-6); HEMATOCRIT 25.2 % (37.9-51.0); HEMOGLOBIN 8.4 g/dL (13.5-17.0); LYMPHOCYTES % (AUTO) 8.5 % (13-45); MEAN CORPUSCULAR HEMOGLOBIN 31.3 pg (27.0-33.4); MEAN CORPUSCULAR HGB CONC 33.5 g/dL (32.0-36.0); MEAN CORPUSCULAR VOLUME 94 fl (80-97); MONOCYTES % (AUTO) 11.4 % (3-13); RED BLOOD COUNT 2.69 10^6/uL (4.35-5.55); RED CELL DISTRIBUTION WIDTH 16.4 % (11.5-14.0); SEGMENTED NEUTROPHILS % (AUTO) 77.9 % (42-78); WHITE BLOOD COUNT 7.2 10^3/uL (4.0-10.5)
[2017-05-04 12:35] LABS: VENOUS BLOOD BASE EXCESS -2.9 mmol/L; VENOUS BLOOD PCO2 45.4 mmHg (35-63); VENOUS BLOOD PH 7.32 (7.30-7.42)
[2017-05-04 12:52] LABS: ALANINE AMINOTRANSFERASE 24 U/L (21-72); ALBUMIN 3.6 g/dL (3.5-5.0); ALKALINE PHOSPHATASE 211 U/L (38-126); ANION GAP 16 (5-19); ASPARTATE AMINO TRANSFERASE 31 U/L (17-59); BILIRUBIN,DIRECT 1.7 mg/dL (0.0-0.4); BILIRUBIN,TOTAL 1.8 mg/dL (0.2-1.3); BLOOD UREA NITROGEN 54 mg/dL (7-20); CALCIUM 8.1 mg/dL (8.4-10.2); CARBON DIOXIDE 25 mmol/L (22-30); CHLORIDE 99 mmol/L (98-107); CREATININE RESULT 6.19 mg/dL (0.52-1.25); GLUCOSE 145 mg/dL (75-110); POTASSIUM 3.9 mmol/L (3.6-5.0); SODIUM 140.4 mmol/L (137-145); TOTAL PROTEIN 7.9 g/dL (6.3-8.2)
--- NOTE | 2017-05-04 13:01 | ER Document Report ---
ED Extremity Problem, Lower - General Chief Complaint: Leg Pain Stated Complaint: SKIN ISSUE/LEG PAIN Time Seen by Provider: 05/04/17 11:51 Mode of Arrival: Wheelchair Information source: Patient Notes: patient is a 61-year-old male who presents to the ER today for bilateral lower extremity wounds that wound care clinic sent him here for because they said that they were infected. Patient states that the wounds have been there for a couple of months and he has been seeing wound care for them. He is a diabetic on dialysis. He admits to increased pain to the bilateral lower legs, but does state that he has neuropathy from diabetes. He admits to pus draining. He denies any fevers or chills. TRAVEL OUTSIDE OF THE [place] IN LAST 30 DAYS: No - Related Data Allergies/Adverse Reactions: heparin Allergy (Verified 05/04/17 11:29) enoxaparin [From Lovenox] Adverse Reaction (Verified 05/04/17 11:29) Home Medications: Current Home Medications Gabapentin [Neurontin 300 mg Capsule] 600 mg PO DAILY 05/04/17 [History] Midodrine HCl [Proamatine 5 Mg Tablet] 10 mg PO Q8 05/04/17 [History] Sevelamer HCl [Renagel 400 Mg Tablet] 800 mg PO Q8 05/04/17 [History] Venlafaxine HCl [Effexor] 37.5 mg PO DAILY 05/04/17 [History] Warfarin Sodium [Coumadin 5 mg Tablet] 5 mg PO DAILY 05/04/17 [History] Past Medical History - General Information source: Patient - Social History Smoking Status: Former Smoker Chew tobacco use (# tins/day): No Frequency of alcohol use: None Drug Abuse: None Family History: CAD, DM Patient has suicidal ideation: No Patient has homicidal ideation: No - Past Medical History Cardiac Medical History: Reports: Hx Atrial Fibrillation, Hx Congestive Heart Failure, Hx Heart Attack, Hx Hypertension Endocrine Medical History: Reports: Hx Diabetes Mellitus Type 2 Renal/ Medical History: Reports: Hx End Stage Renal Disease. Denies: Hx Peritoneal Dialysis Musculoskeltal Medical History: Reports Hx Arthritis, Reports Hx Musculoskeletal Deformity, Reports Hx Musculoskeletal Trauma Psychiatric Medical History: Reports: Hx Depression Past Surgical History: Reports: Hx Appendectomy, Hx Cardiac Catheterization, Hx Cardiac Surgery - triple bypass, Hx Orthopedic Surgery - right knee replacement , Hx Rectal Surgery - abscess years ago, Other - Recent AV graft placementComment Only: Hx Abdominal Surgery - current hernia - Immunizations Immunizations up to date: Yes Hx Diphtheria, Pertussis, Tetanus Vaccination: Yes Hx Pneumococcal Vaccination: 05/23/13 Review of Systems - Review of Systems Constitutional: No symptoms reported EENT: No symptoms reported Cardiovascular: No symptoms reported Respiratory: No symptoms reported Gastrointestinal: No symptoms reported Genitourinary: No symptoms reported Male Genitourinary: No symptoms reported Musculoskeletal: No symptoms reported Skin: See HPI Hematologic/Lymphatic: No symptoms reported Neurological/Psychological: No symptoms reported Physical Exam - Vital signs Vitals: Temp Pulse Resp BP Pulse Ox 98.5 F 82 19 104/50 L 97 05/04/17 11:33 05/04/17 11:33 05/04/17 11:33 05/04/17 11:33 05/04/17 11:33 - Notes Notes: PHYSICAL EXAMINATION: GENERAL: Chronically ill-appearing, but in no acute distress. HEAD: Atraumatic, normocephalic. EYES: Pupils equal round and reactive to light, extraocular movements intact, sclera anicteric, conjunctiva are normal. NECK: Normal range of motion, supple without lymphadenopathy LUNGS: CTAB and equal. No wheezes rales or rhonchi. HEART: Regular rate and rhythm without murmurs EXTREMITIES: Normal range of motion, no pitting edema. No cyanosis. NEUROLOGICAL: Cranial nerves grossly intact. decreased sensory exams to the bilateral lower extremities, decreased dorsalis pedis pulses, good femoral pulses PSYCH: Normal mood, normal affect. SKIN: Warm, Dry, normal turgor,, 3 cm x 2 cm ulcer to the right posterior ankle , into the subcutaneous tissue, no purulence noted, 4 cm x 3 cm ulcer to the left lateral ankle, into the subcutaneous tissue, no purulence noted, no necrosis noted to the left ulcer, erythema to the entirety of both lower extremities, not just surrounding the ulcers, consistent with venous and arterial insufficiencies, tender to palpate entirety of bilateral lower extremities Course - Re-evaluation Re-evalutation: 05/04/17 13:00 Dr. Oliveira, surgeon director environmental to come evaluate pt for surgical debridement. 05/04/17 13:39 Dr. Oliveira advises that legs appeared to not be cellulitic, not infected, he states that what I believed was necrosis to the left lower ulcer is actually blood clot in the ulcer. He states that there is no need for surgical debridement at this time and that patient needs a trial of an Unna Boot. Patient does need dialysis and we do not want to interrupt his dialysis routine that he gets done 3 times a week outpatient. Patient will be placed in unna boots here and advised to continue follow-up with wound care. His white count and lactic acid are normal today, he is afebrile with normal vital signs. He shows no sign of infection today. - Vital Signs Vital signs: Temp Pulse Resp BP Pulse Ox 98.5 F 82 19 104/50 L 97 05/04/17 11:33 05/04/17 11:33 05/04/17 11:33 05/04/17 11:33 05/04/17 11:33 - Laboratory Result Diagrams: 05/04/17 12:07 05/04/17 12:07 Laboratory results interpreted by me: 05/04/17 05/04/17 12:07 12:07 RBC 2.69 L Hgb 8.4 L Hct 25.2 L RDW 16.4 H Plt Count 131 L Lymphocytes % 8.5 L BUN 54 H Creatinine 6.19 H Est GFR ( Amer) 11 L Est GFR (Non-Af Amer) 9 L Glucose 145 H Calcium 8.1 L Total Bilirubin 1.8 H Direct Bilirubin 1.7 H Alkaline Phosphatase 211 H Discharge - Discharge Clinical Impression: Wounds, multiple open, lower extremity Qualifiers: Encounter type: initial encounter Laterality: unspecified laterality Qualified Code(s): S81.809A - Unspecified open wound, unspecified lower leg, initial encounter Condition: Stable Disposition: HOME, SELF-CARE Additional Instructions: follow up with wound care, your WBC and other blood work show no infection today. Surgeon who evaluated you believes that you do not need debridement of these until after unna boot comes off. Return immediately for any new or worsening symptoms. Follow up with primary care provider, call tomorrow to make followup appointment. Referrals: JOSE CEDEÑO MD [Primary Care Provider] - Follow up as needed
[2017-05-04] MEDS ORDERED: OXYCODONE-ACETAMINOPHEN 5-325 MG TABLET PO ONE (15:14)
[2017-05-04 15:41] VITALS: BP 114/61
== END 2017-05-04 15:37 | disposition home or self-care (01) ==
LOC: ER 11:21
DX: L97.321 Non-pressure chronic ulcer of left ankle limited to breakdown of skin (principal); L97.311 Non-pressure chronic ulcer of right ankle limited to breakdown of skin; M79.605 Pain in left leg; M79.604 Pain in right leg; I48.91 Unspecified atrial fibrillation; E11.22 Type 2 diabetes mellitus with diabetic chronic kidney disease; I13.2 Hypertensive heart and chronic kidney disease with heart failure and with stage 5 chronic kidney disease, or end stage renal disease; I50.9 Heart failure, unspecified; N18.6 End stage renal disease; Z99.2 Dependence on renal dialysis; Z96.651 Presence of right artificial knee joint; I25.2 Old myocardial infarction
CPT/HCPCS: 99283; 96361; 96374; 36415; 87040; 85025; 80053; 82803; 83605; A9270; J7030; J3370

== ENCOUNTER 2017-05-06 18:23 | Emergency (ER) | payer MEDICARE ==
[2017-05-06 18:57] LABS: ABSOLUTE BASOPHILS # (AUTO) 0.1 10^3/uL (0.0-0.2); ABSOLUTE EOSINOPHILS # (AUTO) 0.2 10^3/uL (0.0-0.6); ABSOLUTE LYMPHOCYTES (AUTO) 0.7 10^3/uL (0.5-4.7); ABSOLUTE MONOCYTES (AUTO) 0.9 10^3/uL (0.1-1.4); BASOPHILS % (AUTO) 0.8 % (0-2); HEMATOCRIT 24.4 % (37.9-51.0); HGB HCT DIFFERENCE -0.4; LYMPHOCYTES % (AUTO) 9.4 % (13-45); MEAN CORPUSCULAR HEMOGLOBIN 30.6 pg (27.0-33.4); MEAN CORPUSCULAR HGB CONC 32.7 g/dL (32.0-36.0); MEAN CORPUSCULAR VOLUME 94 fl (80-97); MONOCYTES % (AUTO) 11.1 % (3-13); RED BLOOD COUNT 2.61 10^6/uL (4.35-5.55); RED CELL DISTRIBUTION WIDTH 16.9 % (11.5-14.0); SEGMENTED NEUTROPHILS % (AUTO) 76.7 % (42-78); WHITE BLOOD COUNT 7.8 10^3/uL (4.0-10.5)
[2017-05-06 18:58] LABS: VENOUS BLOOD BASE EXCESS -3.2 mmol/L; VENOUS BLOOD HCO3 22.7 mmol/L (20-32); VENOUS BLOOD PCO2 44.8 mmHg (35-63); VENOUS BLOOD PH 7.32 (7.30-7.42)
[2017-05-06 19:10] LABS: PROTHROMBIN TIME 28.5 SEC (11.4-15.4)
[2017-05-06 19:18] LABS: ALANINE AMINOTRANSFERASE 29 U/L (21-72); ALBUMIN 3.2 g/dL (3.5-5.0); ALKALINE PHOSPHATASE 188 U/L (38-126); ASPARTATE AMINO TRANSFERASE 27 U/L (17-59); BILIRUBIN,DIRECT 1.5 mg/dL (0.0-0.4); BILIRUBIN,TOTAL 1.5 mg/dL (0.2-1.3); BLOOD UREA NITROGEN 72 mg/dL (7-20); CALCIUM 7.5 mg/dL (8.4-10.2); CREATININE RESULT 7.39 mg/dL (0.52-1.25); GLUCOSE 126 mg/dL (75-110); TOTAL PROTEIN 7.2 g/dL (6.3-8.2)
[2017-05-06 19:29] LABS: CARBON DIOXIDE 19 mmol/L (22-30); CHLORIDE 98 mmol/L (98-107); POTASSIUM 5.1 mmol/L (3.6-5.0); SODIUM 135.7 mmol/L (137-145)
--- NOTE | 2017-05-06 19:31 | RADIOLOGY REPORT (SQ) ---
EXAM DESCRIPTION: CHEST SINGLE VIEW COMPLETED DATE/TIME: 05/06/2017 7:14 pm REASON FOR STUDY: ams COMPARISON: 04/15/2007 NUMBER OF VIEWS: One view. TECHNIQUE: Single frontal radiographic view of the chest acquired. LIMITATIONS: None. FINDINGS: LUNGS AND PLEURA: Mild interstitial edema. No definite consolidation, pleural effusion, o r pneumothorax. MEDIASTINUM AND HILAR STRUCTURES: No masses or contour abnormality. HEART AND VASCULATURE: Cardiac enlargement. Vascular congestion. BONES: No acute findings. HARDWARE: Stable. OTHER: No other significant finding. IMPRESSION: CARDIAC ENLARGEMENT. MILD PULMONARY EDEMA. TECHNICAL DOCUMENTATION: JOB ID: [id number] [employer]- All Rights Reserved
[2017-05-06 19:35] LABS: ANION GAP 19 (5-19)
--- NOTE | 2017-05-06 20:19 | RADIOLOGY REPORT (SQ) ---
EXAM DESCRIPTION: CT HEAD WITHOUT COMPLETED DATE/TIME: 05/06/2017 8:09 pm REASON FOR STUDY: AMS COMPARISON: 03/03/2017 TECHNIQUE: Axial images acquired through the brain without intravenous contrast. Images reviewed wi th bone, brain and subdural windows. Images stored on PACS. All CT scanners at this facility use dose modulation, iterative reconstruction, and/or weight based d osing when appropriate to reduce radiation dose to as low as reasonably achievable (ALARA). [facility]: Dose Right [facility]: CareDose [facility]: Dose Right [facility]: Teradose 4D [facility]: [employer] RADIATION DOSE: Up-to-date CT equipment and radiation dose reduction techniques were employed. CTDIv ol: 64.6 - 67.0 mGy. DLP: 2446 mGy-cm. mGy. LIMITATIONS: None. FINDINGS: VENTRICLES: Prominent. CEREBRUM: No masses. No hemorrhage. No midline shift. Areas of low density in the white matter mos t likely due to chronic micro-vascular ischemic change. No evidence for acute infarction. CEREBELLUM: No masses. No hemorrhage. No alteration of density. No evidence for acute infarction. EXTRAAXIAL SPACES: Mild age-related involutional change. No fluid collections. No masses. ORBITS AND GLOBE: No intra- or extraconal masses. Normal contour of globe without masses. CALVARIUM: No fracture. PARANASAL SINUSES: No fluid or mucosal thickening. SOFT TISSUES: No mass or hematoma. OTHER: No other significant finding. IMPRESSION: NO ACUTE INTRACRANIAL PROCESS. NO SIGNIFICANT CHANGE FROM PRIOR STUDY. EVIDENCE OF ACUTE STROKE: NO. TECHNICAL DOCUMENTATION: JOB ID: [id number] Quality ID # [id number]: Final reports with documentation of one or more dose reduction techniques (e.g., Au tomated exposure control, adjustment of the mA and/or kV according to patient size, use of iterative reconstruction technique) 2010 [employer]- All Rights Reserved
--- NOTE | 2017-05-06 21:17 | ER Document Report ---
ED General - General Chief Complaint: Altered Mental Status Stated Complaint: ALTERED LOC Time Seen by Provider: 05/06/17 18:57 Mode of Arrival: Stretcher Information source: Emergency Med Personnel Cannot obtain history due to: Altered mental status Notes: Patient is a 61-year-old morbidly obese male comes emergency room by EMS with complaint of altered mental status. Patient showed up at dialysis today a day early thinking he was due for his regular treatment. Patient has been having difficulty with mentation according to EMS. Currently there is no family members that are present for obtaining further history from or about patient. Although patient has been to the ER as earliest as yesterday with a complaint of bilateral lower extremity pain. TRAVEL OUTSIDE OF THE [place] IN LAST 30 DAYS: No - HPI Patient complains to provider of: Patient has no complaints at this time Onset: Other - Unknown Onset/Duration: Sudden, Worse Quality of pain: Achy Severity: Moderate Pain Level: 3 Associated symptoms: None Exacerbated by: Other - Unknown Relieved by: Other - Nothing Similar symptoms previously: No Recently seen / treated by doctor: Yes - Seen yesterday this emergency room for lower extremity pain - Related Data Allergies/Adverse Reactions: heparin Allergy (Verified 05/06/17 18:44) enoxaparin [From Lovenox] Adverse Reaction (Verified 05/06/17 18:44) Past Medical History - General Information source: Emergency Med Personnel, [facility] Records Cannot obtain history due to: Altered mental status - Social History Smoking Status: Former Smoker Frequency of alcohol use: None Drug Abuse: None Family History: CAD, DM - Past Medical History Cardiac Medical History: Reports: Hx Atrial Fibrillation, Hx Congestive Heart Failure, Hx Heart Attack, Hx Hypertension Endocrine Medical History: Reports: Hx Diabetes Mellitus Type 2 Renal/ Medical History: Reports: Hx End Stage Renal Disease. Denies: Hx Peritoneal Dialysis Musculoskeltal Medical History: Reports Hx Arthritis, Reports Hx Musculoskeletal Deformity, Reports Hx Musculoskeletal Trauma Psychiatric Medical History: Reports: Hx Depression Past Surgical History: Reports: Hx Appendectomy, Hx Cardiac Catheterization, Hx Cardiac Surgery - triple bypass, Hx Orthopedic Surgery - right knee replacement , Hx Rectal Surgery - abscess years ago, Other - Recent AV graft placementComment Only: Hx Abdominal Surgery - current hernia - Immunizations Immunizations up to date: Yes Hx Diphtheria, Pertussis, Tetanus Vaccination: Yes Hx Pneumococcal Vaccination: 05/23/13 Review of Systems - Review of Systems Constitutional: Weakness EENT: No symptoms reported Cardiovascular: No symptoms reported Respiratory: No symptoms reported Gastrointestinal: No symptoms reported Genitourinary: No symptoms reported Male Genitourinary: No symptoms reported Musculoskeletal: No symptoms reported Skin: No symptoms reported Hematologic/Lymphatic: No symptoms reported Neurological/Psychological: See HPI, Confusion, Weakness Physical Exam - Vital signs Vitals: Resp Pulse Ox 18 99 05/06/17 18:29 05/06/17 18:29 Interpretation: Hypotensive - Notes Notes: Physical exam patient in neurologic exam patient is very difficult. Patient is in room alone somnolent most of the examination. Will not cooperate in neurological exam at this time. Patient seems to fall off to sleep while talking. He is arousable by loud voice commands and does follow commands. He does know that he is in the emergency room at the [facility] is president and that he is 61 years old and then has difficulty tell me what is wrong with him. Currently he denies any chest pain or shortness of breath - General General appearance: Other - Altered motor confusion difficulty with mentation - HEENT Head: Normocephalic, Atraumatic Eyes: Normal Conjunctiva: Normal Extraocular movements intact: Yes Mucous membranes: Dry - Respiratory Respiratory status: No respiratory distress Chest status: Nontender Breath sounds: Decreased air movement Chest palpation: Normal - Cardiovascular Murmur: Yes Notes: Patient displays on EKG a paced rhythm at 80 bpm - Abdominal Inspection: Morbidly Obese, Other - Ascites apparent Distension: Distended, Fluid wave Bowel sounds: Hypoactive Tenderness: Nontender - Extremities General upper extremity: Normal inspection, Nontender General lower extremity: Tender Notes: Examination patient's lower extremity shows them to be edematous and wrapped in [place] with gauze underneath. Patient of the lower extremities does cause significant discomfort for patient he does have 2+ pulses dorsalis pedis bilaterally he has feeling in the toes bilaterally to pain also weeping through the bandages. - Neurological Cognition: Confused Orientation: AAOx4 J[place]on Coma Scale Eye Opening: To Voice [place] Coma Scale Verbal: Inappropriate [place] Coma Scale Motor: Obeys Commands [place] Coma Scale Total: 12 Speech: Normal - Skin Skin Temperature: Warm Skin Moisture: Dry Skin Color: Pale Course - Vital Signs Vital signs: Temp Pulse Resp BP Pulse Ox 97.8 F 18 118/106 H 91 L 05/06/17 18:44 05/06/17 22:41 05/06/17 22:41 05/06/17 19:20 - Laboratory Result Diagrams: 05/06/17 18:37 05/06/17 18:37 Laboratory results interpreted by me: 05/06/17 05/06/17 05/06/17 18:37 18:37 18:37 RBC 2.61 L Hgb 8.0 L Hct 24.4 L RDW 16.9 H Plt Count 137 L Lymphocytes % 9.4 L PT 28.5 H Sodium 135.7 L Potassium 5.1 H Carbon Dioxide 19 L BUN 72 H Creatinine 7.39 H Est GFR ( Amer) 9 L Est GFR (Non-Af Amer) 8 L Glucose 126 H Calcium 7.5 L Total Bilirubin 1.5 H Direct Bilirubin 1.5 H Alkaline Phosphatase 188 H Ammonia Albumin 3.2 L 05/06/17 18:37 RBC Hgb Hct RDW Plt Count Lymphocytes % PT Sodium Potassium Carbon Dioxide BUN Creatinine Est GFR ( Amer) Est GFR (Non-Af Amer) Glucose Calcium Total Bilirubin Direct Bilirubin Alkaline Phosphatase Ammonia 185.8 H Albumin - Diagnostic Test Radiology results interpreted by me: 05/06/17 23:[address] head and x-ray chest were negative for acute findings. - EKG Interpretation by Tx EKG shows normal: Sinus rhythm - paced rate of 80 - Transfer of Care Notes: 05/06/17 23:[address] Corea or hospitalist here informed him of patient's condition and reason for admission I informed him the patient would need dialysis this weekend most likely and he informed me that dialysis is not available in the hospital here over the weekend. I then contacted [facility] transfer I talked with Dr. Bills and has accepted the patient we are to use and facesheet and information to number directly to [phone] and for his information patient's primary doctor is Danilo Willingham 05/06/17 23:35 Also note patient received here in our service 30 mg of lactulose p.o. Discharge - Discharge Clinical Impression: Altered mental status, Hepatic encephalopathy, End-stage renal disease on hemodialysis Condition: Stable Disposition: [facility] Additional Instructions: I discussed the case with Dr. Bills is excepting patient to his facility and will be waiting review of patient's medical records.
[2017-05-06] MEDS ORDERED: LACTULOSE SYRUP 20 GM/30 ML UDCUP PO ONE (22:14)
[2017-05-07 00:04] VITALS: BP 116/93
[2017-05-07] MEDS ORDERED: LORAZEPAM INJ 2 MG/1 ML VIAL IV ONE (00:24)
--- NOTE | 2017-05-07 13:43 | EKG REPORT ---
SEVERITY:- ABNORMAL ECG - VENTRICULAR-PACED COMPLEXES NONSPECIFIC IVCD WITH LAD LVH WITH SECONDARY REPOLARIZATION ABNORMALITY : Confirmed by: Johnny Juárez 07-May-2017 13:43:07
== END 2017-05-07 01:03 | disposition short-term general hospital (02) ==
LOC: ER 18:23
DX: K72.90 Hepatic failure, unspecified without coma (principal); I12.0 Hypertensive chronic kidney disease with stage 5 chronic kidney disease or end stage renal disease; E11.22 Type 2 diabetes mellitus with diabetic chronic kidney disease; N18.6 End stage renal disease; Z99.2 Dependence on renal dialysis; R41.0 Disorientation, unspecified; R53.1 Weakness; R23.1 Pallor; R60.0 Localized edema; Z88.8 Allergy status to other drugs, medicaments and biological substances; Z95.1 Presence of aortocoronary bypass graft
CPT/HCPCS: 93005; 99285; 96374; 36415; 87040; 82140; 85025; 85610; 80053; 82803; 83605; 71010; 70450; 93010; A9270; J2060